=== PATIENT | female | born 1995 | race Caucasian/White ===

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

== ENCOUNTER 2017-08-09 13:59 | Emergency (ER) | payer OTHER ==
[~2017-08-09] VITALS: Ht 157.5 cm; Wt 46.9 kg
[2017-08-09 14:02] VITALS: TEMP 37; Ht 157.5 cm; Wt 46.9 kg
[2017-08-09] MEDS ORDERED: PHENAZOPYRIDINE HCL 200 MG TAB PO STA (14:07)
[2017-08-09] MEDS ORDERED: KETOROLAC TROMETHAMINE 30 MG/ML VIAL IV STA (14:07)
[2017-08-09] MEDS ORDERED: LACTATED RINGER'S 1000ML 1,000 ML IV STA (14:07)
[2017-08-09] MEDS ORDERED: ACETAMINOPHEN 500 MG TAB PO STA (14:07)
[2017-08-09] MEDS ORDERED: ONDANSETRON 4MG OD TAB PO ONE (14:15)
--- NOTE | 2017-08-09 14:30 | EMERGENCY ROOM VISIT NOTE ---
History Report prepared by Johnathon: Galdino Bruno Under the Supervision of: Dr. Moises Nickerson M.D. First contact with patient: 14:04 Chief Complaint: URINARY SYMPTOMS Stated Complaint: KIDNEY INFECTION History of Present Illness The patient is a 22 year old female who presents to the Emergency Room with complaints of persistent urinary symptoms beginning about a week ago. She has a history of frequent UTIs. Her urinary symptoms include dark colored urine, pain with urination, right flank pain, and difficulty with urination. The patient also complains of chills, and fatigue. She has been taking Azo for urinary symptoms, but has seen minimal relief. She denies any fevers or vomiting. The patient denies chance of . She has a history of a prior kidney stone, but does not feel that her symptoms feel particularly similar. She notes that she and her children were all sick two weeks ago. The patient states that she feels congested from this, but denies significant shortness of breath. She states that she has not been drinking much recently and feels dehydrated. Source of History: patient Onset: About a week ago Quality: other (urinary symptoms) Timing: other (persistent) Associated Symptoms: + chills, No fevers, No SOB, No vomiting Review of Systems See HPI for pertinent positives & negatives. A total of 10 systems reviewed and were otherwise negative. 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 Surgical Problems: (1) History of adenoidectomy Family History Diabetes mellitus Gallbladder disease Heart disease Hypertension Social History Smoking Status: Current Every Day Smoker Alcohol Use: none Drug Use: none Marital Status: single Housing Status: lives with family Occupation Status: employed Current/Historical Medications Scheduled Cefdinir (Omnicef), 300 MG PO Q12H Scheduled PRN Phenazopyridine HCl (Pyridium), 200 MG PO TID PRN for Frequency/Burning w/ Urination Allergies Coded Allergies: No Known Allergies (Unverified , 08/09/17) Physical Exam Vital Signs Date Time Temp Pulse Resp B/P (MAP) Pulse Ox O2 Delivery O2 Flow Rate FiO2 08/09/17 16:29 92 14 105/57 99 08/09/17 16:14 87 17 99 08/09/17 16:00 94 17 111/61 99 Room Air 08/09/17 15:59 87 15 111/61 98 08/09/17 14:59 111 23 08/09/17 14:44 112 17 08/09/17 14:29 126 15 08/09/17 14:21 124 08/09/17 14:02 37.0 145 20 120/74 99 Room Air Physical Exam GENERAL: Patient is in no acute distress. HEENT: No acute trauma, normocephalic atraumatic, mucous membranes moist, no nasal congestion, no scleral icterus. NECK: No stridor, no adenopathy, no meningismus, trachea is midline. LUNGS: Clear to auscultation bilaterally, no wheeze, no rhonchi, breath sounds equal. HEART: Tachycardic with a regular rhythm. No murmurs. ABDOMEN: Soft, nontender, bowel sounds positive, no hernias, no peritonitis. BACK: Right flank discomfort with percussion. EXTREMITIES: No cyanosis or edema, full range of motion of all the joints without pain or difficulty, no signs for acute trauma. NEUROLOGIC: Oriented x 3, no acute motor or sensory deficits, no focal weakness. SKIN: No rash, no jaundice, no diaphoresis. Medical Decision & Procedures ER Provider Diagnostic Interpretation: Radiology results as stated below per my review and radiologist interpretation: (RENAL)RETROPERITON COMP FINDINGS: Right kidney: Normal echogenicity. Right kidney measures 10.4 cm. No hydronephrosis. No convincing evidence of calculus or mass. Normal perfusion. Left kidney: Normal echogenicity. Left kidney measures 10.9 cm. No hydronephrosis. No convincing evidence of calculus or mass. Normal perfusion. Bladder: Debris within the bladder with a mobile sludge ball. Bilateral ureteral jets present. Other: None. IMPRESSION: 1. No obstruction. 2. Debris within the bladder with mobile sludge ball. This can be seen in the setting of infection or hemorrhage. Correlate with urinalysis. Electronically signed by: Haider Mariee M.D. 08/09/2017 3:47 PM KUB FINDINGS: Moderate stool burden throughout the colon. No bowel obstruction. No gross evidence of free intraperitoneal gas. Allowing for the presence of gas and stool, no evidence of calcifications projecting over the renal shadows. Suggestion of a punctate calcification over the right hemipelvis. A distal right ureteral calculus is difficult to exclude, although this could represent a phlebolith. Mild dextroscoliotic curvature of the lumbar spine. IMPRESSION: 1. Punctate calcification in the right hemipelvis. A distal right ureteral calculus is difficult to exclude, although this could represent a phlebolith possible. Electronically signed by: Haider Mariee M.D. 08/09/2017 3:28 PM CHEST ONE VIEW PORTABLE FINDINGS: Cardiomediastinal silhouette normal. Lungs and pleural spaces clear. Osseous structures normal. Upper abdomen normal. IMPRESSION: 1. No acute cardiopulmonary disease. Electronically signed by: Haider Mariee M.D. 08/09/2017 2:50 PM Laboratory Results 08/09/17 14:31 Red Blood Count 4.72, Mean Corpuscular Volume 89.2, Mean Corpuscular Hemoglobin 30.7, Mean Corpuscular Hemoglobin Concent 34.4, Mean Platelet Volume 9.6, Neutrophils (%) (Auto) 77.6, Lymphocytes (%) (Auto) 14.9, Monocytes (%) (Auto) 7.0, Eosinophils (%) (Auto) 0.3, Basophils (%) (Auto) 0.1, Neutrophils # (Auto) 8.01, Lymphocytes # (Auto) 1.54, Monocytes # (Auto) 0.72, Eosinophils # (Auto) 0.03, Basophils # (Auto) 0.01 08/09/17 14:31 Test 08/09/17 14:17 08/09/17 14:31 Urine Color ORANGE Urine Appearance TURBID (CLEAR) Urine pH 8.0 (4.5-7.5) Urine Specific [place] 1.018 (1.000-1.030) Urine Protein 2+ (NEG) Urine Glucose (UA) NEG (NEG) Urine Ketones NEG (NEG) Urine Occult Blood 3+ (NEG) Urine Nitrite POS (NEG) Urine Bilirubin NEG (NEG) Urine Urobilinogen NEG (NEG) Urine Leukocyte Esterase LARGE (NEG) Urine WBC (Auto) >30 /hpf (0-5) Urine RBC (Auto) >30 /hpf (0-4) Urine Hyaline Casts (Auto) 0 /lpf (0-5) Urine Epithelial Cells (Auto) >30 /lpf (0-5) Urine Bacteria (Auto) 3+ (NEG) Urine Pathogenic Casts /lpf (0) White Blood Count 10.32 K/uL (4.8-10.8) Red Blood Count 4.72 M/uL (4.2-5.4) Hemoglobin 14.5 g/dL (12.0-16.0) Hematocrit 42.1 % (37-47) Mean Corpuscular Volume 89.2 fL (80-100) Mean Corpuscular Hemoglobin 30.7 pg (25-34) Mean Corpuscular Hemoglobin Concent 34.4 g/dl (32-36) Platelet Count 227 K/uL (130-400) Mean Platelet Volume 9.6 fL (7.4-10.4) Neutrophils (%) (Auto) 77.6 % Lymphocytes (%) (Auto) 14.9 % Monocytes (%) (Auto) 7.0 % Eosinophils (%) (Auto) 0.3 % Basophils (%) (Auto) 0.1 % Neutrophils # (Auto) 8.01 K/uL (1.4-6.5) Lymphocytes # (Auto) 1.54 K/uL (1.2-3.4) Monocytes # (Auto) 0.72 K/uL (0.11-0.59) Eosinophils # (Auto) 0.03 K/uL (0-0.5) Basophils # (Auto) 0.01 K/uL (0-0.2) RDW Standard Deviation 43.4 fL (36.4-46.3) RDW Coefficient of Variation 13.2 % (11.5-14.5) Immature Granulocyte % (Auto) 0.1 % Immature Granulocyte # (Auto) 0.01 K/uL (0.00-0.02) Anion Gap 9.0 mmol/L (3-11) Est Creatinine Clear Calc Drug Dose 107.2 ml/min Estimated GFR () > 150.0 Estimated GFR (Non- 129.8 BUN/Creatinine Ratio 12.5 (10-20) Lactic Acid Level 1.5 mmol/L (0.4-2.0) Calcium Level 9.0 mg/dl (8.5-10.1) Total Bilirubin 0.2 mg/dl (0.2-1) Aspartate Amino Transf (AST/SGOT) 11 U/L (15-37) Alanine Aminotransferase (ALT/SGPT) 19 U/L (12-78) Alkaline Phosphatase 85 U/L (45-117) Total Protein 7.1 gm/dl (6.4-8.2) Albumin 3.4 gm/dl (3.4-5.0) Globulin 3.7 gm/dl (2.5-4.0) Albumin/Globulin Ratio 0.9 (0.9-2) Lipase 213 U/L (73-393) Human Chorionic Gonadotropin, Qual NEG (NEG) Laboratory results reviewed by me. Medications Administered Medications (Trade) Dose Ordered Sig/Marzena Route Start Time Stop Time Status Last Admin Dose Admin Ondansetron HCl (Zofran Odt) 4 mg ONE ONCE PO 08/09/17 14:15 08/09/17 14:16 DC 08/09/17 14:40 4 MG Ketorolac Tromethamine (Toradol Inj) 30 mg NOW STAT IV 08/09/17 14:07 08/09/17 14:12 DC 08/09/17 14:42 30 MG Acetaminophen (Tylenol Tab) 1,000 mg NOW STAT PO 08/09/17 14:07 08/09/17 14:12 DC 08/09/17 14:41 1,000 MG Lactated Ringer's 1,000 ml @ 999 mls/hr Q1H1M STAT IV 08/09/17 14:07 08/09/17 15:07 DC 08/09/17 14:41 999 MLS/HR Phenazopyridine HCl (Pyridium Tab) 200 mg NOW STAT PO 08/09/17 14:07 08/09/17 14:12 DC 08/09/17 14:41 200 MG Ceftriaxone Sodium (Rocephin Inj) 1 gm NOW STAT IV 08/09/17 15:16 08/09/17 15:17 DC 08/09/17 16:00 1 GM ECG Indication: other (history of WPW) Rate (beats per minute): 105 Rhythm: sinus tachycardia Findings: no ectopy, other (WPW. No obvious ischemia. ) ED Course 1405: The patient was evaluated in room B12B. A complete history and physical exam was performed. 1407: Ordered Pyridium Tab 200 mg PO, Lactated Ringer's 1000 mL @ 999 mL/hr IV, Tylenol Tab 1000 mg PO, Toradol Inj 30 mg IV. 1415: Ordered Zofran Odt 4 mg PO. 1516: Ordered Rocephin Inj 1 gm IV. 1602: Reevaluated the patient. Discussed results and discharge instructions: she verbalized understanding and agreement. The patient is ready for discharge. Medical Decision The patient is a 22 year old female who presents to the ED with complaints of urinary symptoms. Differential diagnoses considered include renal colic, dehydration, electrolyte imbalance, renal failure, UTI, pyelonephritis, , sepsis, and SVT. There is no leukocytosis or concerning anemia. No significant electrolyte abnormality, kidney failure or hepatitis. There is no pancreatitis. testing is negative. Urinalysis does suggest infection, urine culture is pending. Lactic acid level is not elevated making sepsis less likely. KUB shows a possible distal right ureteral stone versus a phlebolith. Chest does not show pneumonia or CHF. Renal ultrasound shows no hydronephrosis, bilateral ureteral jets were seen. EKG shows a sinus tachycardia with WPW. The patient was given IV lactated Ringer's, she received IV Zofran, IV Toradol, IV ceftriaxone, oral Pyridium and oral Tylenol. Her heart rate is improved, she is resting comfortably. The patient has acute pyelonephritis. She is being discharged on Omnicef, over- the-counter pain medication, hydration and rest. If worsening or not improving , she should return. Medication Reconcilliation Current Medication List: was personally reviewed by me Blood Pressure Screening Patient's blood pressure: Normal blood pressure Blood pressure disposition: Did not require urgent referral Impression Primary Impression: Pyelonephritis Additional Impression: WPW (Fneig-Fikgwwmgy-Hfakm syndrome) Scribe Attestation The scribe's documentation has been prepared under my direction and personally reviewed by me in its entirety. I confirm that the note above accurately reflects all work, treatment, procedures, and medical decision making performed by me. Departure Information Dispostion Home / Self-Care Prescriptions Phenazopyridine HCl (Pyridium) 200 Mg Tab 200 MG PO TID Y for Frequency/Burning w/Urination, #6 TAB Prov: Moises Nickerson M.D. 08/09/17 Cefdinir (OMNICEF) 300 Mg Cap 300 MG PO Q12H for 10 Days, #20 CAP Prov: Moises Nickerson M.D. 08/09/17 Referrals No Doctor, Assigned (PCP) Forms HOME CARE DOCUMENTATION FORM, IMPORTANT VISIT INFORMATION Patient Instructions My [facility] Additional Instructions fluids rest motrin/tylenol for pain omnicef 2x per day for 10 days pyridium 3x per day for the burning to urinate return for worsening symptoms, if not improving or if start vomiting lab testing was all ok today Problem Qualifiers
--- NOTE | 2017-08-09 14:51 | DIAGNOSTIC IMAGING REPORT ---
CHEST ONE VIEW PORTABLE CLINICAL HISTORY: 22 years-old Female presenting with cough. TECHNIQUE: Portable upright AP view of the chest was obtained. COMPARISON: 01/23/2016. FINDINGS: Cardiomediastinal silhouette normal. Lungs and pleural spaces clear. Osseous structures normal. Upper abdomen normal. IMPRESSION: 1. No acute cardiopulmonary disease. Electronically signed by: Haider Mariee M.D. 08/09/2017 2:50 PM Dictated Date/Time: 08/09/2017 2:49 PM
[2017-08-09 14:54] LABS: BASO % 0.1 %; BASO ABS # 0.01 K/uL (0-0.2); COMPLETE YES; EOS % 0.3 %; HEMATOCRIT 42.1 % (37-47); IG% 0.1 %; LYMPH % 14.9 %; LYMPH ABS # 1.54 K/uL (1.2-3.4); MEAN CELL VOLUME 89.2 fL (80-100); MEAN CORPUSCULAR HEMOGLOBIN 30.7 pg (25-34); MEAN CORPUSCULAR HGB CONC 34.4 g/dl (32-36); MEAN PLATELET VOLUME 9.6 fL (7.4-10.4); NEUT % 77.6 %; PLATELET COUNT 227 K/uL (130-400); RED BLOOD COUNT 4.72 M/uL (4.2-5.4); WHITE BLOOD COUNT 10.32 K/uL (4.8-10.8)
[2017-08-09 15:11] LABS: ALT/SGPT 19 U/L (12-78); AST/SGOT 11 U/L (15-37); BLOOD UREA NITROGEN 8 mg/dl (7-18); BUN/CREATININE RATIO 12.5 (10-20); CARBON DIOXIDE 26 mmol/L (21-32); CHLORIDE 105 mmol/L (98-107); CREATININE 0.62 mg/dl (0.60-1.20); GLUCOSE 82 mg/dl (70-99); POTASSIUM 3.8 mmol/L (3.5-5.1); SODIUM 140 mmol/L (136-145)
[2017-08-09 15:13] LABS: ALB/GLOB RATIO 0.9 (0.9-2); ALKALINE PHOSPHATASE 85 U/L (45-117)
[2017-08-09] MEDS ORDERED: CEFTRIAXONE SOD INJ 1 GM ADDVIAL IV STA (15:16)
[2017-08-09 15:18] LABS: PREG INTERNAL NEGATIVE QC NEG CLEAR BACKGROUND; PREG INTERNAL POSITIVE QC POS CONTROL LINE
--- NOTE | 2017-08-09 15:29 | DIAGNOSTIC IMAGING REPORT ---
KUB CLINICAL HISTORY: 22 years-old Female presenting with poss stone, right flank pain. TECHNIQUE: Single supine view of the abdomen was obtained. COMPARISON: None. FINDINGS: Moderate stool burden throughout the colon. No bowel obstruction. No gross evidence of free intraperitoneal gas. Allowing for the presence of gas and stool, no evidence of calcifications projecting over the renal shadows. Suggestion of a punctate calcification over the right hemipelvis. A distal right ureteral calculus is difficult to exclude, although this could represent a phlebolith. Mild dextroscoliotic curvature of the lumbar spine. IMPRESSION: 1. Punctate calcification in the right hemipelvis. A distal right ureteral calculus is difficult to exclude, although this could represent a phlebolith possible. Electronically signed by: Haider Mariee M.D. 08/09/2017 3:28 PM Dictated Date/Time: 08/09/2017 3:26 PM
[2017-08-09 15:35] LABS: URINE APPEARANCE TURBID (CLEAR); URINE BILIRUBIN NEG (NEG); URINE COLOR ORANGE; URINE EPITHELIAL CELL AUTO >30 /lpf (0-5); URINE NITRITE POS (NEG); URINE SPECIFIC GRAVITY 1.018 (1.000-1.030); UROBILINOGEN NEG (NEG); ZZUR CULT IF INDIC CLEAN CATCH YES
[2017-08-09 15:46] LABS: MANUAL MICROSCOPIC REQUIRED? NO; REVIEW REQ? YES; SULFASALICYLIC ACID POS (NEG)
--- NOTE | 2017-08-09 15:48 | DIAGNOSTIC IMAGING REPORT ---
(RENAL)RETROPERITON COMP CLINICAL HISTORY: 22 years-old Female presenting with right flank pain, poss hydro. TECHNIQUE: Real-time grayscale and limited color Doppler ultrasound imaging of the kidneys and bladder was performed. COMPARISON: None. FINDINGS: Right kidney: Normal echogenicity. Right kidney measures 10.4 cm. No hydronephrosis. No convincing evidence of calculus or mass. Normal perfusion. Left kidney: Normal echogenicity. Left kidney measures 10.9 cm. No hydronephrosis. No convincing evidence of calculus or mass. Normal perfusion. Bladder: Debris within the bladder with a mobile sludge ball. Bilateral ureteral jets present. Other: None. IMPRESSION: 1. No obstruction. 2. Debris within the bladder with mobile sludge ball. This can be seen in the setting of infection or hemorrhage. Correlate with urinalysis. Electronically signed by: Haider Mariee M.D. 08/09/2017 3:47 PM Dictated Date/Time: 08/09/2017 3:46 PM
[2017-08-09] MEDS ORDERED: PHEN-876 PO (16:08)
[2017-08-09] MEDS ORDERED: CEFD300C2 PO (16:08)
[2017-08-09 16:29] VITALS: BP 105/57; PULSE 92; O2SAT 99
== END 2017-08-09 17:02 | disposition home or self-care (01) ==
LOC: C.EDB 14:00
DX: N12 Tubulo-interstitial nephritis, not specified as acute or chronic (principal); I45.6 Pre-excitation syndrome; F32.9 Major depressive disorder, single episode, unspecified; Z87.440 Personal history of urinary (tract) infections; Z83.3 Family history of diabetes mellitus; Z83.79 Family history of other diseases of the digestive system; Z82.49 Family history of ischemic heart disease and other diseases of the circulatory system; F17.210 Nicotine dependence, cigarettes, uncomplicated

== ENCOUNTER 2017-08-20 15:00 | Emergency (ER) | payer OTHER ==
[~2017-08-20] VITALS: Ht 154.9 cm; Wt 49.3 kg
[~2017-08-20 15:00] MED LIST changes: +CEFD300C2 PO; +PHEN-876 PO; -PRENTAB26 PO
[2017-08-20 15:07] VITALS: TEMP 36.6; Ht 154.9 cm; Wt 49.3 kg
[2017-08-20 16:44] LABS: BASO % 0.2 %; BASO ABS # 0.02 K/uL (0-0.2); COMPLETE YES; EOS % 0.5 %; HEMATOCRIT 39.7 % (37-47); IG% 0.3 %; LYMPH % 14.5 %; LYMPH ABS # 1.69 K/uL (1.2-3.4); MEAN CELL VOLUME 93.2 fL (80-100); MEAN CORPUSCULAR HEMOGLOBIN 30.5 pg (25-34); MEAN CORPUSCULAR HGB CONC 32.7 g/dl (32-36); MEAN PLATELET VOLUME 9.4 fL (7.4-10.4); MONO % 4.9 %; NEUT % 79.6 %; PLATELET COUNT 227 K/uL (130-400); RED BLOOD COUNT 4.26 M/uL (4.2-5.4); WHITE BLOOD COUNT 11.63 K/uL (4.8-10.8)
[2017-08-20 17:09] LABS: BUN/CREATININE RATIO 17.7 (10-20); CALCIUM 8.6 mg/dl (8.5-10.1); CREATININE 0.7 mg/dl (0.60-1.20); POTASSIUM 3.5 mmol/L (3.5-5.1)
[2017-08-20 17:19] LABS: URINE APPEARANCE TURBID (CLEAR); URINE BILIRUBIN NEG (NEG); URINE COLOR DK YELLOW; URINE NITRITE POS (NEG); URINE SPECIFIC GRAVITY 1.017 (1.000-1.030); UROBILINOGEN NEG (NEG)
[2017-08-20 17:28] LABS: MANUAL MICROSCOPIC REQUIRED? NO; REVIEW REQ? YES; SULFASALICYLIC ACID POS (NEG)
[2017-08-20 18:40] VITALS: BP 132/72; PULSE 85; O2SAT 99
[2017-08-20] MEDS ORDERED: CIPROFLOXACIN 500 MG TAB PO STA (18:44)
[2017-08-20] MEDS ORDERED: CIPR-255 PO (18:47)
[2017-08-20] MEDS ORDERED: CIPROFLOXACIN 500MG HOME PACK PO ONE (19:00)
--- NOTE | 2017-08-20 22:37 | EMERGENCY ROOM VISIT NOTE ---
History Report prepared by [place]: Karoline Sheppard Under the Supervision of: Dr. Anthony Zelaya M.D. First contact with patient: 16:04 Chief Complaint: URINARY SYMPTOMS Stated Complaint: KIDNEY INFECTION Nursing Triage Summary: having trouble urinating. dx here about 12 days ago with a kidney infection. I was unable to have my perscription filled because it was to expensive. having a lot of pain in my lower back History of Present Illness The patient is a 22 year old female who presents to the Emergency Room with complaints of persistent urinary symptoms for the past several weeks. She admits to dysuria and increased urinary frequency. She also complains of right sided back pain. She does not believe she's been febrile but admits she has not checked. She has not vomited. She denies any chance of . The patient was seen here for urinary symptoms 12 days ago and diagnosed with a kidney infection. She states she was prescribed medication, but has been unable to fill the prescription as her insurance would not cover it. She reports she has no medication allergies. She stated she tried to call and get a new prescription but nobody responded. She states she came today because she was finally able to get a ride. Source of History: patient Onset: several weeks Position: other (urinary system) Quality: other (burning and frequency) Timing: other (persistent) Associated Symptoms: + back pain (right sided back pain), No fevers, No vomiting Review of Systems See HPI for pertinent positives & negatives. A total of 10 systems reviewed and were otherwise negative. 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 Surgical Problems: (1) History of adenoidectomy Family History Diabetes mellitus Gallbladder disease Heart disease Hypertension Social History Smoking Status: Current Every Day Smoker Alcohol Use: none Drug Use: none Marital Status: single Housing Status: lives with family Occupation Status: employed Current/Historical Medications Scheduled Ciprofloxacin Hcl (Cipro), 500 MG PO BID Allergies Coded Allergies: No Known Allergies (Unverified , 08/20/17) Physical Exam Vital Signs Date Time Temp Pulse Resp B/P (MAP) Pulse Ox O2 Delivery O2 Flow Rate FiO2 08/20/17 18:40 85 18 132/72 99 Room Air 08/20/17 17:00 98 18 125/76 99 Room Air 08/20/17 15:07 36.6 117 18 130/65 99 Physical Exam Constitutional: Vital signs reviewed. Eyes: Pupils are equal round reactive to light. Conjunctiva are noninjected. ENT: Pharynx is clear without erythema or exudate. Mucous membranes are moist. Neck supple without meningeal signs. Respiratory: Clear to auscultation bilaterally. Breath sounds are equal bilaterally. Cardiovascular: Regular rate and rhythm. No rubs or gallops. GI: Soft, nondistended and nontender. Bowel sounds are present. Musculoskeletal: No peripheral edema. No CVA tenderness. Integumentary: No cyanosis. Neurological: The patient is awake and alert. No focal deficits. Psychiatric: Normal affect. Medical Decision & Procedures Laboratory Results 08/20/17 16:19 Red Blood Count 4.26, Mean Corpuscular Volume 93.2, Mean Corpuscular Hemoglobin 30.5, Mean Corpuscular Hemoglobin Concent 32.7, Mean Platelet Volume 9.4, Neutrophils (%) (Auto) 79.6, Lymphocytes (%) (Auto) 14.5, Monocytes (%) (Auto) 4.9, Eosinophils (%) (Auto) 0.5, Basophils (%) (Auto) 0.2, Neutrophils # (Auto) 9.26, Lymphocytes # (Auto) 1.69, Monocytes # (Auto) 0.57, Eosinophils # (Auto) 0.06, Basophils # (Auto) 0.02 08/20/17 16:19 Test 08/20/17 16:19 08/20/17 17:04 White Blood Count 11.63 K/uL (4.8-10.8) Red Blood Count 4.26 M/uL (4.2-5.4) Hemoglobin 13.0 g/dL (12.0-16.0) Hematocrit 39.7 % (37-47) Mean Corpuscular Volume 93.2 fL (80-100) Mean Corpuscular Hemoglobin 30.5 pg (25-34) Mean Corpuscular Hemoglobin Concent 32.7 g/dl (32-36) Platelet Count 227 K/uL (130-400) Mean Platelet Volume 9.4 fL (7.4-10.4) Neutrophils (%) (Auto) 79.6 % Lymphocytes (%) (Auto) 14.5 % Monocytes (%) (Auto) 4.9 % Eosinophils (%) (Auto) 0.5 % Basophils (%) (Auto) 0.2 % Neutrophils # (Auto) 9.26 K/uL (1.4-6.5) Lymphocytes # (Auto) 1.69 K/uL (1.2-3.4) Monocytes # (Auto) 0.57 K/uL (0.11-0.59) Eosinophils # (Auto) 0.06 K/uL (0-0.5) Basophils # (Auto) 0.02 K/uL (0-0.2) RDW Standard Deviation 48.3 fL (36.4-46.3) RDW Coefficient of Variation 14.2 % (11.5-14.5) Immature Granulocyte % (Auto) 0.3 % Immature Granulocyte # (Auto) 0.03 K/uL (0.00-0.02) Urine Test NEG (NEG) Anion Gap 9.0 mmol/L (3-11) Est Creatinine Clear Calc Drug Dose 96.7 ml/min Estimated GFR () 144.6 Estimated GFR (Non- 124.7 BUN/Creatinine Ratio 17.7 (10-20) Calcium Level 8.6 mg/dl (8.5-10.1) Urine Color DK YELLOW Urine Appearance TURBID (CLEAR) Urine pH 8.0 (4.5-7.5) Urine Specific [place] 1.017 (1.000-1.030) Urine Protein 1+ (NEG) Urine Glucose (UA) NEG (NEG) Urine Ketones NEG (NEG) Urine Occult Blood 1+ (NEG) Urine Nitrite POS (NEG) Urine Bilirubin NEG (NEG) Urine Urobilinogen NEG (NEG) Urine Leukocyte Esterase LARGE (NEG) Urine WBC (Auto) >30 /hpf (0-5) Urine RBC (Auto) 10-30 /hpf (0-4) Urine Hyaline Casts (Auto) 1-5 /lpf (0-5) Urine Epithelial Cells (Auto) 5-10 /lpf (0-5) Urine Bacteria (Auto) 2+ (NEG) Laboratory results as reviewed by me. Medications Administered Medications (Trade) Dose Ordered Sig/Marzena Route Start Time Stop Time Status Last Admin Dose Admin Ciprofloxacin (Cipro Tab) 500 mg NOW STAT PO 08/20/17 18:44 08/20/17 18:45 DC 08/20/17 18:44 500 MG Ciprofloxacin (Cipro 500MG Home Pack) 1 homepack UD ONCE PO 08/20/17 19:00 08/20/17 19:01 DC 08/20/17 19:00 1 HOMEPACK ED Course 1606: The patient was evaluated in room B10. A complete history and physical exam was performed. 1843: Cipro 500 mg PO. 1844: I reevaluated the patient. She is feeling well. I discussed her test results with her as well as her discharge instructions and she verbalized complete understanding and agreement. 1899: Cipro 500 mg 1 homepack PO. Medical Decision This is a 22-year-old female who presents with back pain and urinary symptoms. Differential diagnosis includes UTI, pyelonephritis, acute kidney injury, SIRS. I did perform a limited focused review of portions of the patient's old chart on the electronic medical record. The patient was seen here for urinary symptoms on July 09 and diagnosed with pyelonephritis. She was treated with IV Ceftriaxone and discharged with Omnicef. Her urine culture grew out e- coli that was sensitive to everything but Bactrim. I did evaluate the patient as noted above. The patient developed urinary symptoms and back pain several weeks ago. She was seen here and diagnosed with pyelonephritis and discharged with antibiotics but she never filled the prescription. She states she is here today because she was finally able to get a ride. She does not appear to have any systemic symptoms such as fever or vomiting. She does not appear septic. She has very minimal to no CVA tenderness on the right side. She verbally responds that it is tender on that side but does not react physically. IV access was established. I did order and personally review the patient's urinalysis as described above. Urine culture was sent. I did treat the patient with Cipro. Urine test was negative. I did order and review the patient's blood work as noted in the electronic medical record. Her white blood cell count is slightly elevated. Renal function is normal. I did discuss the test results with the patient. We did confirm that generic Cipro would be affordable for her and covered by her insurance. She was discharged with a prescription for Cipro. She was advised to follow up with her doctor. Medication Reconcilliation Current Medication List: was personally reviewed by me Blood Pressure Screening Patient's blood pressure: Elevated blood pressure Blood pressure disposition: Referred to PCP Impression Primary Impression: Pyelonephritis Scribe Attestation The scribe's documentation has been prepared under my direct and personally reviewed by me in its entirety. I confirm that the note above accurately reflects all work, treatment, procedures, and medical decision making performed by me. Departure Information Dispostion Home / Self-Care Prescriptions Ciprofloxacin Hcl (CIPRO) 500 Mg Tab 500 MG PO BID, #14 TAB Prov: Anthony Zelaya M.D. 08/20/17 Referrals No Doctor, Assigned (PCP) Patient Instructions My [facility], Pyelonephritis Dc Additional Instructions You have been examined and treated today on an emergency basis only. This is not a substitute for, or an effort to provide, complete comprehensive medical care. It is impossible to recognize and treat all injuries or illnesses in a single emergency department visit. It is therefore important that you follow up closely with your physician. Call as soon as possible for an appointment. Return for worsening symptoms or if you develop fever, vomiting, or any other concerning symptoms.
== END 2017-08-20 19:29 | disposition home or self-care (01) ==
LOC: C.EDB 15:02
DX: N12 Tubulo-interstitial nephritis, not specified as acute or chronic (principal); F32.9 Major depressive disorder, single episode, unspecified; F17.200 Nicotine dependence, unspecified, uncomplicated; Z87.440 Personal history of urinary (tract) infections; Z91.81 History of falling; Z98.890 Other specified postprocedural states

== ENCOUNTER 2017-08-20 20:25 | Emergency (ER) | payer OTHER ==
[~2017-08-20] VITALS: Ht 154.9 cm; Wt 49.6 kg
[~2017-08-20 20:25] MED LIST changes: +CIPR-255 PO
[2017-08-20 20:27] VITALS: TEMP 36.8; Ht 154.9 cm; Wt 49.6 kg
--- NOTE | 2017-08-20 20:54 | EMERGENCY ROOM VISIT NOTE ---
History Report prepared by Johnathon: John Tian Under the Supervision of: Dr. Demarco Diallo M.D. First contact with patient: 20:39 Chief Complaint: MENTAL HEALTH EVALUATION Stated Complaint: MENTAL HEALTH History of Present Illness The patient is a 22 year old female with a history of depression who presents to the Emergency Room with a persistent concern for a need for a mental health evaluation today. Per the psych correctional counselor/case manager, the patient was just here a couple hours ago and saw Dr. Zelaya for a kidney infection. The patient recently just lost her children by CYS, and the patient states that that has been a major recent stressor for her. The patient notes that she was at her mother's house after being discharged from here, and asked for a ride to her home because she needed to pay rent to avoid eviction. The patient's mother said no, so the patient said that she would walk on the street to get home, and that is what she did, but did stop at the [employer]. The patient says that she called her [place] the [place], but the mother's phone was off. The patient states that she then called her step-father, who told the patient that he would pick her up. However, the patient says that while waiting outside the mart, the machine silk screen printer showed up because her mother called them noting that she had concerns about the patient's safety. The patient states that she does not know why she is here, and denies any suicidal or homicidal ideations. She notes that she has not taken her depression medications in 4 years because she was treated, but she says that she deals with depressed thoughts everyday. She adds that she smokes marijuana daily, and recreationally uses other drugs but no IV drugs. The patient denies any decrease in appetite or weight loss. She also denies any leg pain, or any extra Tylenol or Advil use. She adds that she cut herself when she was younger, but has not cut herself for a while. She notes that she has back pain from her kidney infection. Source of History: patient, other (psych correctional counselor/case manager) Onset: Today Position: other (global - concern for patient's safety) Quality: other (mother called police) Timing: other (persistent need) Associated Symptoms: + back pain Note: Associated symptoms: Denies leg pain, or suicidal or homicidal ideations. Review of Systems See HPI for pertinent positives & negatives. A total of 10 systems reviewed and were otherwise negative. Past Medical & Surgical Medical Problems: (1) Abnormal TSH (2) ACUTE PHARYNGITIS (3) Chronic fatigue (4) Dehydration (5) Dental caries (6) DEPRESSIVE DISORDER NEC (7) Fall (8) Nausea vomiting and diarrhea (9) at early stage (10) PROM (premature rupture of membranes) (11) Spontaneous onset of labor (12) Syncope (13) UTI (lower urinary tract infection) (14) Vomiting complicating (15) Vomiting complicating (16) Vomiting complicating (17) Qxsbo-Scuvbgumy-Fwcuh (WPW) syndrome Surgical Problems: (1) History of adenoidectomy Old medical records were reviewed. Nurse's notes were reviewed and I agree with. Family History Diabetes mellitus Gallbladder disease Heart disease Hypertension Social History Smoking Status: Current Every Day Smoker Alcohol Use: none Drug Use: none Marital Status: single Housing Status: lives with family Occupation Status: employed Current/Historical Medications Scheduled Ciprofloxacin Hcl (Cipro), 500 MG PO BID Allergies Coded Allergies: No Known Allergies (Unverified , 08/20/17) Physical Exam Vital Signs Date Time Temp Pulse Resp B/P (MAP) Pulse Ox O2 Delivery O2 Flow Rate FiO2 08/20/17 22:51 99 14 107/64 96 Room Air 08/20/17 20:27 36.8 117 20 128/85 99 Room Air Physical Exam General: Non-ill appearing young female in no acute distress. HEENT: Normal cephalic atraumatic. Pupils are equal round and reactive to light. Extraocular movements are intact. Oropharynx is pink with moist mucous membranes. No swelling of the mouth lips or tongue. Neck: Supple with a midline trachea. No meningeal signs or stiffness, no JVD or bruits. No Stridor. Chest: Clear to auscultation bilaterally. No wheezes or rhonchi. No increased work of breathing. Heart: regular rate and rhythm. Abdomen: Soft nontender, nondistended without rebound guarding or rigidity. Extremities: No cyanosis clubbing or edema. No calf tenderness or assymetry Spine/Back. Non tender to palpation. No CVA tenderness Skin: Good turgor without rashes. Neurologic exam: Cranial nerves two through 12 are intact. Motor and sensation are intact and symmetrical throughout. Psych: Denies suicidal or homicidal ideation. Medical Decision & Procedures Laboratory Results Test 08/20/17 17:04 08/20/17 21:08 Urine Opiates Screen NEG (NEG) Urine Methadone, Qualitative NEG (NEG) Urine Barbiturates NEG (NEG) Urine Phencyclidine (PCP) Level NEG (NEG) Ur Amphetamine/Methamphetamine NEG (NEG) MDMA (Ecstasy) Screen NEG (NEG) Urine Benzodiazepines Screen NEG (NEG) Urine Cocaine Metabolite NEG (NEG) Urine Marijuana (THC) POS (NEG) Ethyl Alcohol mg/dL < 3.0 mg/dl (0-3) Laboratory studies as stated above per my review. Medications Administered Medications (Trade) Dose Ordered Sig/Marzena Route Start Time Stop Time Status Last Admin Dose Admin Nicotine (Nicoderm Cq 14MG Patch) 1 patch ONE STAT TD 08/20/17 23:18 08/20/17 23:20 DC 08/20/17 23:28 1 PATCH Nicotine Polacrilex (Nicorette 2MG Gum) 1 piece ONE STAT MT 08/20/17 23:18 08/20/17 23:20 DC 08/20/17 23:27 1 PIECE Acetaminophen (Tylenol Tab) 650 mg NOW STAT PO 08/21/17 00:44 08/21/17 00:45 DC 08/21/17 00:50 650 MG ED Course 2038: Past medical records reviewed. The patient was evaluated in room A5, and a complete history and physical examination were performed. 2300: I talked to Dung, the correctional counselor/case manager, who talked to the patient's mother, and we will have the mental health team come see the patient. 2318: Ordered Nicorette 2MG Gum 1 piece MT, Nicoderm Cq 14MG Patch 1 patch TD. 2323: The correctional counselor/case manager notified me that the patient is willing to stay, and they will try to get her into [facility]. 0032: I was notified by the correctional counselor/case manager that the patient is resting comfortably and was accepted to be evaluated for further treatment at [facility]. The patient expressed agreement with the plan. 0044: Ordered Tylenol Tab 650 mg PO. Medical Decision Differentials include depression, anxiety, electrolyte or metabolic abnormality. This patient comes in as described above. She was brought in by police after her mother was concerned about her wanting to hurt herself. 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 She was brought in by police. The patient is cooperative. She was anxious seen earlier today for after having urinary tract infection possible kidney infection. She has stable vital signs looks well. Her urine drug shows that was positive for marijuana. Alcohol is negative. I reviewed her labs from earlier they're unremarkable. The patient is willing to come in voluntarily for mental health help., Our case management team has arranged her to be placed in [facility]. She will be transferred there for further inpatient treatment and evaluation. Medication Reconcilliation Current Medication List: was personally reviewed by me Blood Pressure Screening Patient's blood pressure: Normal blood pressure Impression Primary Impression: Depression Additional Impression: Suicidal ideation Scribe Attestation The scribe's documentation has been prepared under my direction and personally reviewed by me in its entirety. I confirm that the note above accurately reflects all work, treatment, procedures, and medical decision making performed by me. Departure Information Dispostion Mental Health Acute Care (accepted to [facility]) Referrals No Doctor, Assigned (PCP) Patient Instructions My [facility] Problem Qualifiers Primary Impression: Depression Depression Type: major depressive disorder Active/Remission status: currently active Major depression episode severity: unspecified
[2017-08-20 22:33] LABS: BENZODIAZEPINE, URINE NEG (NEG); COCAINE,URINE NEG (NEG); PHENCYCLIDINE, URINE NEG (NEG)
[2017-08-20] MEDS ORDERED: NICOTINE POLACRILEX 2 MG GUM MT STA (23:18)
[2017-08-20] MEDS ORDERED: NICOTINE 14 MG/24 HR TDSY TD STA (23:18)
[2017-08-21] MEDS ORDERED: ACETAMINOPHEN 325 MG TAB PO STA (00:44)
[2017-08-21 01:42] VITALS: BP 125/69; PULSE 101; O2SAT 99
== END 2017-08-21 01:44 ==
LOC: C.EDB 20:26 → C.EDA 08-21 01:44
DX: F32.9 Major depressive disorder, single episode, unspecified (principal); R45.851 Suicidal ideations; F17.200 Nicotine dependence, unspecified, uncomplicated; Z87.440 Personal history of urinary (tract) infections; Z98.890 Other specified postprocedural states; Z83.3 Family history of diabetes mellitus; Z83.79 Family history of other diseases of the digestive system; Z82.49 Family history of ischemic heart disease and other diseases of the circulatory system

== ENCOUNTER 2018-01-20 19:17 | Inpatient (IN) | payer OTHER ==
[~2018-01-20] VITALS: Ht 157.5 cm; Wt 60.4 kg
[~2018-01-20 19:17] MED LIST changes: -CEFD300C2 PO; -PHEN-876 PO
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
[2018-01-20] MEDS ORDERED: LORAZEPAM 1 MG TAB SL STA (19:48)
[2018-01-20 20:05] LABS: BASO % 0.2 %; BASO ABS # 0.01 K/uL (0-0.2); EOS % 0.7 %; EOS ABS # 0.03 K/uL (0-0.5); HEMOGLOBIN 14.1 g/dL (12.0-16.0); LYMPH % 37.7 %; LYMPH ABS # 1.68 K/uL (1.2-3.4); MEAN CELL VOLUME 90.9 fL (80-100); MEAN CORPUSCULAR HEMOGLOBIN 30.5 pg (25-34); MEAN CORPUSCULAR HGB CONC 33.6 g/dl (32-36); MEAN PLATELET VOLUME 9.5 fL (7.4-10.4); MONO ABS # 0.31 K/uL (0.11-0.59); NEUT % 54.4 %; NEUT ABS # 2.43 K/uL (1.4-6.5); PLATELET COUNT 209 K/uL (130-400); RED CELL DISTRIBUTION WIDTH CV 12.3 % (11.5-14.5); RED CELL DISTRIBUTION WIDTH SD 40.9 fL (36.4-46.3); WHITE BLOOD COUNT 4.46 K/uL (4.8-10.8)
[2018-01-20 20:29] LABS: ALBUMIN 3.9 gm/dl (3.4-5.0); ALT/SGPT 19 U/L (12-78); AST/SGOT 16 U/L (15-37); BLOOD UREA NITROGEN 13 mg/dl (7-18); CALCIUM 8.8 mg/dl (8.5-10.1); CARBON DIOXIDE 27 mmol/L (21-32); CREATININE 0.88 mg/dl (0.60-1.20); GLUCOSE 81 mg/dl (70-99); POTASSIUM 3.6 mmol/L (3.5-5.1); SODIUM 139 mmol/L (136-145)
[2018-01-20] MEDS ORDERED: LEVO50TA6 PO (20:37)
[2018-01-20] MEDS ORDERED: DSY/150 PO (20:37)
[2018-01-20] MEDS ORDERED: LTH300C PO (20:37)
[2018-01-20] MEDS ORDERED: BUSP-8 PO (20:37)
[2018-01-20 20:40] LABS: ALKALINE PHOSPHATASE 72 U/L (45-117); TOTAL PROTEIN 7.4 gm/dl (6.4-8.2)
[2018-01-20] MEDS ORDERED: NITROFURANTOIN MONOHYDRATE 100 MG CAP PO STA (21:03)
[2018-01-21] MEDS ORDERED: TRAZODONE HCL 50 MG TAB PO ONE (03:15)
[2018-01-21] MEDS ORDERED: NURSING VERBAL MED ORDER ONE (03:15)
[2018-01-21 03:30] VITALS: O2SAT 98
[2018-01-21 04:37] VITALS: BP 104/56; PULSE 61; TEMP 36.6; Ht 157.5 cm; Wt 60.4 kg
[2018-01-21] MEDS ORDERED: hydrOXYzine HCL 25 MG TAB PO PRN ×2 (05:30)
[2018-01-21] MEDS ORDERED: ACETAMINOPHEN 325 MG TAB PO PRN (05:30)
[2018-01-21] MEDS ORDERED: BISMUTH SUBSALICYLATE PER ML OMNICELL CHARGE PO PRN (05:30)
[2018-01-21] MEDS ORDERED: SODIUM CHLORIDE 0.65% NA SOLN 45 ML (OCEAN) PRN (05:30)
[2018-01-21] MEDS ORDERED: MAGNESIUM HYDROXIDE SUSP 30 ML UDC PO PRN (05:30)
[2018-01-21] MEDS ORDERED: ALUMINUM/MAGNESIUM SUSP 30 ML UDC PO PRN (05:30)
--- NOTE | 2018-01-21 06:10 | EMERGENCY ROOM VISIT NOTE ---
ED Visit Note First contact with patient: 02:23 22 yr old female signed out to me by Dr Knox awaiting mental health evaluation. She was medically cleared and stable for Dr Knox. She has made suicidal threats and is here as 302 involuntary commitment. She was admitted to [address] [place] [address] and per their request I ordered her her nightly trazodone.
[2018-01-21 06:51] VITALS: BP_SYST 106; BP_SYST 118; BP_DIAS 67; BP_DIAS 69; PULSE 70; PULSE 71; TEMP 36.5
[2018-01-21] MEDS: LEVOTHYROXINE 50 MCG TAB PO SCH (10:26)
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
[2018-01-21] MEDS: LITHIUM CARBONATE 300 MG TAB PO SCH ×2 (10:27→21:30)
[2018-01-21] MEDS ORDERED: NICOTINE POLACRILEX 2 MG GUM MT PRN (12:15)
[2018-01-21] MEDS: NICOTINE 14 MG/24 HR TDSY TD SCH (13:14)
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
[2018-01-21] MEDS: TRAZODONE HCL 50 MG TAB PO SCH (21:30)
[2018-01-22 06:55] VITALS: BP_SYST 102; BP_SYST 120; BP_DIAS 64; BP_DIAS 70; PULSE 61; PULSE 83; TEMP 36.5
[2018-01-22] MEDS: LITHIUM CARBONATE 300 MG TAB PO SCH ×2 (09:07→21:23)
[2018-01-22] MEDS: LEVOTHYROXINE 50 MCG TAB PO SCH (09:07)
[2018-01-22] MEDS: NICOTINE 14 MG/24 HR TDSY TD SCH (09:07)
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
[2018-01-22] MEDS: TRAZODONE HCL 50 MG TAB PO SCH (21:23)
[2018-01-23 06:57] VITALS: BP_SYST 99; BP_DIAS 59; BP_DIAS 64; PULSE 52; PULSE 57; TEMP 36.5
[2018-01-23] MEDS: NICOTINE 14 MG/24 HR TDSY TD SCH (08:56)
[2018-01-23] MEDS: LEVOTHYROXINE 50 MCG TAB PO SCH (08:56)
[2018-01-23] MEDS: LITHIUM CARBONATE 300 MG TAB PO SCH ×2 (08:56→21:25)
--- NOTE | 2018-01-23 10:15 | Psych Management Progress Note ---
Psychiatry Miscellaneous Date of Service: Jan 23, 2018. Patient seen, MS assessed. Rates mood as improving. Encouraged cooperation with care and treatment plan as outlined by allied health prescriber.
--- NOTE | 2018-01-23 10:32 | Psychiatric Progress Notes ---
Progress Note Date of Service Jan 23, 2018. Interval History Emma is a 22-year-old white female with past psychiatric history of bipolar disorder, generalized anxiety disorder, and insomnia who was admitted to [facility] on a 302 petition signed by her mother after texting suicidal threats to both her mother and her girlfriend following a fight with her girlfriend. Pt was recently discharged from [facility] after a 30 day stay which was one of many. She also has a history of several previous inpatient psychiatric stays and also was imprisoned for 50 days. She has a significant history of SA and medication noncompliance which requires ongoing mental health treatment as medications are initiated and while determining need for dose adjustments to allow for stabilization of mood. Pt is at risk of decompensation and self harm if discharged prematurely. Chief Complaint "I'm good but I need to talk about my meds" Subjective Patient was seen & assessed. Interval progress reviewed with Treatment Team. The patient reports remembering my visit with her yesterday. She was quite fatigued then and notes that she continues with feelings of exhaustion. She is sleeping and eating well. She describes her mood as "good" today and reports a minor mood change of "angry " last pm when her mother brought her a favorite blanket that was not allowed to be used on the U because "it had skulls" on it. The patients mother brought a new blanket which shifted her mood back to "good" per patient. She rates her mood today as an 8/10. She is making efforts to go to groups and is doing art therapy. She denies SI/ HI plan or intent but admits her mood isn't stable yet as she was off of her meds prior to admission. She feels a little down. She reports being off of her meds because she did not like "tremors" that they cause because the tremors interfere with her writing skills which she needs to have for her job. However, she feels the meds are the best combo that she has had. She denies akathesia. Review of Systems Psych: denies symptoms other than stated above Constitutional: denied Cardiovascular: denied GI: denied Neurologic: denied Remainder of 10 body systems also reviewed and denied other than noted above. Sleep Information Total Hours of Sleep: 9.25 Meal Information Percent of Breakfast Consumed: 100 Percent of Lunch Consumed: 90 Percent of Dinner Consumed: 100 Mental Status Exam During interview pt is: alert and oriented, cooperative, other (relaxed) Appearance: appropriately dressed, disheveled Eye contact is: good Motor behavior is: steady gait & station, no abnormal motor movements Speech: normal in rate, rhythm & volume Affect: depressed, flat Mood is: depressed Thought process: goal directed Thought content: reality based without delusions Suicidal thought are: denied (however, present via text messaging prior to admission), Plan: denied Homicidal thoughts are: denied Hallucinations: denies auditory, denies visual Cognition: memory grossly intact, attention grossly intact, language grossly intact Intelligence estimated to be: consistent with level of education Insight: limited Judgement: limited Impression 22-year-old female with past psychiatric history of bipolar disorder, generalized anxiety disorder, insomnia, SIB and Substance Abuse history who self reports that she is not mood stable. She feels the current meds are her best combination of meds in context of controlling her moods but she reports a prior side effect of tremors which so she stopped them instead of discussing this issue with her prescriber. She is still with limited insight and judgement about her mental health and D&A issues overall. She requires ongoing mental health treatment. As medications are initiated and dose adjustments are made she will be monitored for side effects. She is encouraged to attend groups and to become involved in the milieu of the [facility]. Plan (1) Suicidal ideation 01/21 - The patient is admitted to [facility] ([facility] unit) on q 15 min checks (behavioral with suicide precautions) for safety. The patient will participate in group, recreational and milieu therapies and will be offered additional individual and family sessions as clinically appropriate. - Work with patient to develop safety plan and focus on health coping strategies (2) Bipolar disorder 01/21 - Restart [place] 300mg BID. [place] level ordered for 01/25 to recheck, as it is clear she has not been taking it regularly - Restart Trazodone 150mg qHS for insomnia - Family meeting with identified supports - Encourage participation in group and recreational therapies and focus on healthy coping strategies - Communication with CYS and correction officer head as necessary during her stay 01/22 -- continue current treatment plan 01/23 -- continue current meds and treatment plan. Will continue to monitor for for tremors. (3) Generalized anxiety disorder with panic attacks 01/21 - Continue buspirone 20mg BID - Encourage healthy coping strategies 01/23 - continue current treatment plan and meds (4) Post traumatic stress disorder (PTSD) 01/21 - See recommendations above - Encourage use of healthy coping skills to handle intrusive thoughts (5) Hypothyroidism 01/21 - TSH = 0.322 upon admission. Continue current home dosing of levothyroxine. 01/23 -- no tremors noted. TSH wnl. Dr. Catherine has personally been involved in the review of the above case and development of recommendations. Discharge / Aftercare Planning Primary Care Physician: Name: Unknown Therapist: Name: Ashlee Patton Date of Appointment: February 01, 2018 Time of Appointment: 2:00 p.m. Appointment Notes: [facility] [place] [address] Senior Android Developer: Name: Joselito Tee Assets Strengths: determination, future oriented with hope to get children back Needs: outpatient providers, medication compliance Risk Factors Assessment : Yes /single/: Yes Access to guns: No Health problems: No Mental Health Diagnoses: Yes Substance use disorders: Yes Previous attempt: No Family history of suicide: No Previous psychiatric stay: Yes Hopelessness: No Smoker: Yes Protective Factors Assessment : No Responsible for young children: Yes (with CYS involvement) Employed: Yes Stable relationships: No Supportive family: No Data Vital Signs Last 24 Hrs: Date Time Temp Pulse Resp B/P (MAP) Pulse Ox O2 Delivery O2 Flow Rate FiO2 01/23/18 06:57 36.5 52 16 99/59 57 99/64 Meds Administered Last 24 Hrs: Meds Administered (Past 24Hrs) Medications (Trade) Dose Ordered Sig/Marzena Route Start Time Stop Time Status Last Admin Dose Admin Trazodone HCl (Desyrel Tab) 150 mg HS PO 01/21/18 22:00 02/20/18 21:59 01/22/18 21:23 150 MG Nicotine (Nicoderm Cq 14MG Patch) 1 patch QAM TD 01/21/18 12:30 02/20/18 12:29 01/23/18 08:56 1 PATCH Miscellaneous (Remove Nicoderm Patch) 1 ea HS N/A 01/21/18 22:00 02/20/18 21:59 01/22/18 21:24 1 EA
[2018-01-23] MEDS: TRAZODONE HCL 50 MG TAB PO SCH (21:25)
[2018-01-24 06:38] VITALS: BP_SYST 108; BP_SYST 95; BP_DIAS 59; BP_DIAS 64; PULSE 49; PULSE 63; TEMP 36.6
[2018-01-24] MEDS: LEVOTHYROXINE 50 MCG TAB PO SCH (08:26)
[2018-01-24] MEDS: LITHIUM CARBONATE 300 MG TAB PO SCH ×2 (08:26→21:02)
[2018-01-24] MEDS: NICOTINE 14 MG/24 HR TDSY TD SCH (08:38)
--- NOTE | 2018-01-24 11:03 | Psychiatric Progress Notes ---
Progress Note Date of Service Jan 24, 2018. Interval History Emma is a 22-year-old white female with past psychiatric history of bipolar disorder, generalized anxiety disorder, and insomnia who was admitted to [facility] on a 302 petition signed by her mother after texting suicidal threats to both her mother and her girlfriend following a fight with her girlfriend. Pt was recently discharged from [facility] after a 30 day stay which was one of many. She also has a history of several previous inpatient psychiatric stays and also was imprisoned for 50 days. She has a significant history of SA and medication noncompliance which requires ongoing mental health treatment as medications are initiated and while determining need for dose adjustments to allow for stabilization of mood. Chief Complaint "A lot better ". Subjective Patient was seen & assessed interval progress reviewed with Treatment Team. Staff report she had a family meeting with her mother and stepfather yesterday, which was difficult. They discussed her refusal to accept their help, resisting the structure of the home and the rules. Her mother had a notebook with a list of unacceptable things that the patient has done. She became overwhelmed and discussing this, discouraged, and verbally combative. She eventually agreed to consider a local [facility] and [facility] transitions services. The importance of good adherence to medication regimens was discussed , and she plans to use a timer on her phone to remind her to take her meds, while her mother agreed to fill a weekly pillbox. She was less withdrawn to her room yesterday, and engaged more with staff and peers, attended groups and participated appropriately. She processed some of her stressors, including problems with her employer and girlfriend. She talked about her anger at her ex -girlfriend, stating that if she saw her she would want to choke her, but did not think she would act on those thoughts. She is reported feeling overly tired here, which she attributes to medications, and also reported having stopped her meds on her own due to tremors. She has been restarted on lithium and trazodone, and continued on buspirone for anxiety. Today on my assessment, the patient states she is feeling much more stable now that she is back on her medications. She admits to stopping them on her own due to a tremor, and states the tremor is still present but is very slight and is currently manageable. She feels lithium is the only medication that works for her, and says that it "makes me feel better about myself, like a weight off my shoulders. " Discussed that there are ways to mitigate side effects such as tremor if they occur, and the importance of talking about her medications and any side effects with her prescribing physician, and not just changing the medications on her own. She denies suicidal thoughts, reports good appetite, and fair sleep. She says that the meeting with her mother went well, and that her mother wants her to be discharged today and come spend the night at her home tonight. She claims this was discussed during the meeting, although per the social insurance analyst it was not. She further states that her mother will take care of getting her into [facility], as "she knows everyone there." She is very focused on being discharged today, stating that she has a "Mother's Day visit with my kids" scheduled for tomorrow morning, and is certain that it could not be rescheduled. She has not tried to discuss this with [facility], stating she does not know their number. Reviewed with the social insurance analyst who did her family meeting yesterday, who confirmed that there was no discussion of the patient going to her mother's home, and that she will give her the phone number to call and reschedule her visit with her children. Review of Systems + Mild intermittent upper extremity tremor Sleep Information Total Hours of Sleep: 7.75 Meal Information Percent of Breakfast Consumed: 100 Percent of Lunch Consumed: 80 Percent of Dinner Consumed: 100 Mental Status Exam During interview pt is: alert and oriented, cooperative, other (relaxed) Appearance: appropriately dressed, disheveled, other (Dressed in a worn-out T- shirt and leggings, long blonde hair, nose ring and multiple rings on, sparkly nail [place] citizen) Eye contact is: good Motor behavior is: steady gait & station, no abnormal motor movements Speech: normal in rate, rhythm & volume Affect: depressed, tearful, other (Incongruent with stated mood) Mood is: other ("A lot better") Thought process: goal directed, perseveration (On discharge) Thought content: reality based without delusions Suicidal thought are: denied Homicidal thoughts are: denied Hallucinations: denies auditory, denies visual Cognition: memory grossly intact, attention grossly intact, language grossly intact Intelligence estimated to be: consistent with level of education Insight: limited Judgement: limited Impression 22-year-old female with past psychiatric history of bipolar disorder, generalized anxiety disorder, insomnia, SIB and polysubstance abuse history who is admitted on a 302 involuntary commitment after sending text messages to multiple people indicating suicidal thoughts and an episode of violence towards her girlfriend. She has been restarted on lithium, and a family meeting held with her mother yesterday, with a discussed the patient's inability to follow rules and her mother's home, and the plan for [facility]. At this time, she continues to require inpatient mental health treatment, she continues to display unstable mood and lacks a safe discharge plan. She has not necessarily been forthcoming with information, we need to ensure that she has a safe place to stay and adequate supports prior to discharge in order to decrease the risk of suicide or harm to others. Plan (1) Suicidal ideation 01/21 - The patient is admitted to [facility] ([facility]) on q 15 min checks (behavioral with suicide precautions) for safety. The patient will participate in group, recreational and milieu therapies and will be offered additional individual and family sessions as clinically appropriate. - Work with patient to develop safety plan and focus on health coping strategies (2) Bipolar disorder 01/21 - Restart [place] 300mg BID. [place] level ordered for 01/25 to recheck, as it is clear she has not been taking it regularly - Restart Trazodone 150mg qHS for insomnia - Family meeting with identified supports - Encourage participation in group and recreational therapies and focus on healthy coping strategies - Communication with CYS and returning officer as necessary during her stay 01/22 -- continue current treatment plan 01/23 -- continue current meds and treatment plan. Will continue to monitor for for tremors. 01/24 -continue lithium; trough level ordered for tomorrow. Continue trazodone at bedtime. -Family meeting held with mother yesterday; patient is not able to return there due to unwillingness to follow the rules, so is being referred to [facility]. -Coordinate care with outpatient providers and schedule follow-up appointments with her psychiatric PA Dayna Fuentes at [place], and therapist at [facility]. (3) Generalized anxiety disorder with panic attacks 01/21 - Continue buspirone 20mg BID - Encourage healthy coping strategies 01/23 - continue current treatment plan and meds (4) Post traumatic stress disorder (PTSD) 01/21 - See recommendations above - Encourage use of healthy coping skills to handle intrusive thoughts (5) Hypothyroidism 01/21 - TSH = 0.322 upon admission. Continue current home dosing of levothyroxine. 01/23 -- no tremors noted. TSH wnl. (6) Cannabis use disorder, moderate, dependence 01/24 -UDS positive for THC. Patient has been educated about the risks of substance abuse and the recommendations for abstinence. Coordinate care with outpatient substance abuse treatment provider at [facility]. (7) Methamphetamine use 01/24 -UDS positive for methamphetamine/amphetamine, confirmatory tests are pending. Patient denies recent abuse of stimulants, but reports a long history of abuse of "speed." -Follow up on confirmatory test results. -Follow-up at [facility] for substance abuse treatment. Discharge / Aftercare Planning Primary Care Physician: Name: Unknown Psychiatrist: Name: Marry Fuentes Date of Appointment: February 02, 2018 Time of Appointment: 8:15 am Appointment Notes: [address] [place] [id number] Therapist: Name: Ashlee [employer] Date of Appointment: February 01, 2018 Time of Appointment: 2:00 p.m. Appointment Notes: [facility] [place] [address] Sample Finisher: Name: Joselito Visit Code E&M Code: 16763 Inventory Assets Strengths: determination, future oriented with hope to get children back Needs: outpatient providers, medication compliance, abstinence from substances of abuse Risk Factors Assessment : Yes /single/: Yes Higher / Fall in social status: No Access to guns: No Health problems: No Mental Health Diagnoses: Yes Substance use disorders: Yes Previous attempt: No Family history of suicide: No Previous psychiatric stay: Yes Hopelessness: No Smoker: Yes Protective Factors Assessment : No Responsible for young children: Yes (with CYS involvement) Employed: Yes Stable relationships: No Supportive family: Yes Data Vital Signs Last 24 Hrs: Date Time Temp Pulse Resp B/P (MAP) Pulse Ox O2 Delivery O2 Flow Rate FiO2 01/24/18 06:38 36.6 49 16 108/64 63 95/59
[2018-01-24] MEDS: TRAZODONE HCL 50 MG TAB PO SCH (21:02)
[2018-01-25 06:31] VITALS: BP_SYST 104; BP_SYST 106; BP_DIAS 62; BP_DIAS 64; PULSE 46; PULSE 59; TEMP 36.3
[2018-01-25] MEDS: LEVOTHYROXINE 50 MCG TAB PO SCH (08:39)
[2018-01-25] MEDS: LITHIUM CARBONATE 300 MG TAB PO SCH (08:39)
[2018-01-25] MEDS: NICOTINE 14 MG/24 HR TDSY TD SCH (08:41)
[2018-01-25] MEDS ORDERED: NICO14DI5 TD (09:04)
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
== END 2018-01-25 09:52 | disposition home or self-care (01) | DRG 885 ==
LOC: C.EDA 19:18 → C.MHU 01-21 03:09
PROVIDERS: ADMIT Psychiatry & Neurology Child & Adolescent Psychiatry; ATTEND Psychiatry & Neurology Child & Adolescent Psychiatry
DX: F31.9 Bipolar disorder, unspecified (principal); R45.851 Suicidal ideations; F41.1 Generalized anxiety disorder; F43.10 Post-traumatic stress disorder, unspecified; E03.9 Hypothyroidism, unspecified; F17.200 Nicotine dependence, unspecified, uncomplicated; Z79.899 Other long term (current) drug therapy; F12.20 Cannabis dependence, uncomplicated

== ENCOUNTER 2018-02-15 16:45 | Emergency (ER) | payer OTHER ==
[~2018-02-15] VITALS: Ht 157.5 cm; Wt 60.5 kg
[~2018-02-15 16:45] MED LIST changes: -CIPR-255 PO; +NICO14DI5 TD
[2018-02-15 16:51] VITALS: TEMP 36.8; Ht 157.5 cm; Wt 60.5 kg
[2018-02-15] MEDS ORDERED: CRAN1TAB4 PO (17:12)
[2018-02-15] MEDS ORDERED: ONDANSETRON INJ 2 MG/ML 2 ML VIAL IV STA (17:19)
[2018-02-15] MEDS ORDERED: KETOROLAC TROMETHAMINE 30 MG/ML VIAL IV STA (17:19)
[2018-02-15] MEDS ORDERED: SODIUM CHLORIDE 0.9% 1000ML 1,000 ML IV STA (17:19)
[2018-02-15] MEDS ORDERED: CEFTRIAXONE SOD INJ 1 GM ADDVIAL IV STA (17:28)
--- NOTE | 2018-02-15 17:29 | EMERGENCY ROOM VISIT NOTE ---
ED Visit Note First contact with patient: 16:55 CHIEF COMPLAINT: UTI symptoms, bilateral flank pain HISTORY OF PRESENTING ILLNESS: This is a 23-year-old female who presents to the emergency department with complaint of symptoms of a UTI and bilateral flank pain for the past 2-3 days. She states the pain is constant, dull ache, currently rates as 9/10. She has not taken any gdcy-drt-wpurvyo pain medications for her symptoms. Patient states that she started taking cranberry pills when her symptoms started, but this has not helped. She states that she has an increased frequency, urgency, and urinating in small amounts. She also has had dysuria and has noticed cloudy urine with small amount of blood today. She has had some associated chills, but denies any fevers. She does state that she feels dehydrated. She reports a history of multiple UTIs and pyelonephritis in the past, she states that this feels the same. She states her last UTI was in June 2017. She states that she has been successfully treated with ciprofloxacin in the past. She denies any other symptoms of chest pain, shortness of breath, dizziness or syncope, back pain, diarrhea or constipation, bloody or black stools, abnormal vaginal bleeding or discharge, or unusual rash. REVIEW OF SYSTEMS: A complete 10 point review of systems was reviewed with the patient with pertinent positives and negatives as per history of present illness. All else were negative. PAST MEDICAL HISTORY: Reviewed in chart, see problem list below. SOCIAL HISTORY: Lives at home. Current everyday smoker. Denies alcohol or recreational drug use. ALLERGIES: No known allergies. PHYSICAL EXAM: CONSTITUTIONAL: Pleasant and cooperative. No acute distress. Mildly dehydrated , but otherwise well appearing and well nourished. HEENT: Normocephalic, atraumatic. Pupils equal, round and reactive to light, EOMI. TMs normal. Pharynx normal. Tacky mucous membranes. NECK: Supple, full active range of motion without discomfort. RESPIRATORY: Clear to auscultation bilaterally with no wheezing, crackles, rhonchi or stridor. Equal expansion bilaterally. CARDIOVASCULAR: Regular rate and rhythm with no murmurs, rubs or gallops. Normal peripheral perfusion. No edema. GASTROINTESTINAL: Diffuse mild tenderness throughout. No rebound tenderness or guarding. Bilateral mild CVA tenderness. Soft, nondistended. No palpable masses or HSM. Bowel sounds present in all quadrants. MUSCULOSKELETAL: Full range of motion of all joints without discomfort. INTEGUMENTARY: No rash or other significant dermatologic conditions noted. NEUROLOGIC: Alert and oriented X 4 with normal affect. Normal strength and sensation in all 4 extremities. No focal neurologic deficits noted. Normal speech. Normal gait observed. ED COURSE AND MEDICAL DECISION MAKING: CC: Patient presenting with complaint of symptoms of UTI, bilateral flank pain DIFFERENTIAL DIAGNOSIS: Includes, but not limited to UTI, pyelonephritis, ureteral stone, dehydration, electrolyte abnormality, among others. INTERPRETATION OF LABS: Mild leukocytosis, no anemia, no significant electrolyte abnormalities, normal renal function, normal liver enzymes and lipase. UA consistent with UTI. Urine negative. MEDICATION RECONCILIATION: I attest that I have personally reviewed the patient 's current medication list. INITIAL VITAL SIGNS REVIEW: I reviewed the patient's initial vital signs and interpret them as follows: T: Afebrile; BP: Normotensive; HR: Mildly tachycardic; RR: Within normal limits; Pulse Ox: Within normal limits on room air. Blood pressure screening: The patient was found to have normal blood pressure on screening and does not require follow-up for repeat blood pressure check. SUMMARY: Patient was evaluated at bedside, history and physical exam performed. Patient is alert and oriented, no acute distress, resting calmly in stretcher. Patient has mild bilateral CVA tenderness and mild diffuse abdominal tenderness to palpation, no acute abdomen. Orders were placed at bedside for labs, UA and urine , IV fluids for hydration, IV Toradol for pain. Patient discussed with Dr. Isidro, who agrees with my assessment and plan. Labs and imaging reviewed as above, consistent with UTI. Given bilateral flank pain and slight leukocytosis, suspect pyelonephritis. IV Rocephin 1 g and 500 mg oral ciprofloxacin ordered. Patient reassessed multiple times throughout ED stay, she states that her pain is significantly improved after the Toradol, and she is feeling better after the fluids. She has been able to tolerate PO well. There is a large amount of blood noted in urine, I discussed option of CT scan with the patient, utilizing shared decision making, she prefers to avoid CT scan at this time and verbalized understanding of return precautions. Patient was updated on all results and plan for discharge, she was encouraged to follow closely with her PCP. Rx for Cipro Floxin and Pyridium sent to pharmacy, and patient was educated regarding these medications. Patient was also given strict return precautions should her symptoms worsen, she verbalized understanding. Patient was discharged home in stable condition and ambulatory. 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 Surgical Problems: (1) History of adenoidectomy Status: Resolved Current/Historical Medications Scheduled Buspirone Hcl (Buspirone Hcl), 20 MG PO BID Ciprofloxacin Hcl (Cipro), 500 MG PO BID Levothyroxine Sodium (Levothyroxine Sodium), 50 MCG PO DAILY [place] Carbonate ([place] Carbonate), 300 MG PO BID Phenazopyridine HCl (Pyridium), 200 MG PO TID Trazodone HCl (Trazodone HCl), 150 MG PO HS Scheduled PRN Cranberry (Vaccinium Macrocarp (Cranberry), 3 TABS PO DAILY PRN for uti Allergies Coded Allergies: No Known Allergies (Unverified , 08/20/17) Vital Signs Date Time Temp Pulse Resp B/P (MAP) Pulse Ox O2 Delivery O2 Flow Rate FiO2 02/15/18 19:26 68 16 92/53 99 02/15/18 16:51 36.8 102 18 117/76 98 Room Air Laboratory Results 02/15/18 17:35 Red Blood Count 4.67, Mean Corpuscular Volume 88.7, Mean Corpuscular Hemoglobin 30.0, Mean Corpuscular Hemoglobin Concent 33.8, Mean Platelet Volume 9.0, Neutrophils (%) (Auto) 77.8, Lymphocytes (%) (Auto) 15.1, Monocytes (%) (Auto) 6.2, Eosinophils (%) (Auto) 0.4, Basophils (%) (Auto) 0.2, Neutrophils # (Auto) 8.77, Lymphocytes # (Auto) 1.70, Monocytes # (Auto) 0.70, Eosinophils # (Auto) 0.05, Basophils # (Auto) 0.02 02/15/18 17:35 Test 02/15/18 17:07 02/15/18 17:35 Urine Color YELLOW Urine Appearance TURBID (CLEAR) Urine pH 8.5 (4.5-7.5) Urine Specific [place] 1.019 (1.000-1.030) Urine Protein 2+ (NEG) Urine Glucose (UA) NEG (NEG) Urine Ketones NEG (NEG) Urine Occult Blood 3+ (NEG) Urine Nitrite POS (NEG) Urine Bilirubin NEG (NEG) Urine Urobilinogen NEG (NEG) Urine Leukocyte Esterase LARGE (NEG) Urine WBC (Auto) >30 /hpf (0-5) Urine RBC (Auto) >30 /hpf (0-4) Urine Hyaline Casts (Auto) 0 /lpf (0-5) Urine Epithelial Cells (Auto) 10-20 /lpf (0-5) Urine Bacteria (Auto) 3+ (NEG) Urine Yeast (Auto) (NONE PRSENT) Urine Test NEG (NEG) White Blood Count 11.27 K/uL (4.8-10.8) Red Blood Count 4.67 M/uL (4.2-5.4) Hemoglobin 14.0 g/dL (12.0-16.0) Hematocrit 41.4 % (37-47) Mean Corpuscular Volume 88.7 fL (80-100) Mean Corpuscular Hemoglobin 30.0 pg (25-34) Mean Corpuscular Hemoglobin Concent 33.8 g/dl (32-36) Platelet Count 265 K/uL (130-400) Mean Platelet Volume 9.0 fL (7.4-10.4) Neutrophils (%) (Auto) 77.8 % Lymphocytes (%) (Auto) 15.1 % Monocytes (%) (Auto) 6.2 % Eosinophils (%) (Auto) 0.4 % Basophils (%) (Auto) 0.2 % Neutrophils # (Auto) 8.77 K/uL (1.4-6.5) Lymphocytes # (Auto) 1.70 K/uL (1.2-3.4) Monocytes # (Auto) 0.70 K/uL (0.11-0.59) Eosinophils # (Auto) 0.05 K/uL (0-0.5) Basophils # (Auto) 0.02 K/uL (0-0.2) RDW Standard Deviation 42.9 fL (36.4-46.3) RDW Coefficient of Variation 13.2 % (11.5-14.5) Immature Granulocyte % (Auto) 0.3 % Immature Granulocyte # (Auto) 0.03 K/uL (0.00-0.02) Anion Gap 5.0 mmol/L (3-11) Est Creatinine Clear Calc Drug Dose 105.9 ml/min Estimated GFR () 138.7 Estimated GFR (Non- 119.7 BUN/Creatinine Ratio 15.1 (10-20) Calcium Level 9.3 mg/dl (8.5-10.1) Total Bilirubin 0.4 mg/dl (0.2-1) Direct Bilirubin < 0.1 mg/dl (0-0.2) Aspartate Amino Transf (AST/SGOT) 17 U/L (15-37) Alanine Aminotransferase (ALT/SGPT) 21 U/L (12-78) Alkaline Phosphatase 90 U/L (45-117) Total Protein 7.6 gm/dl (6.4-8.2) Albumin 3.9 gm/dl (3.4-5.0) Lipase 103 U/L (73-393) [place] Level < 0.2 mMOL/L (0.6-1.2) Medications Administered Medications (Trade) Dose Ordered Sig/Marzena Route Start Time Stop Time Status Last Admin Dose Admin Sodium Chloride 1,000 ml @ 999 mls/hr Q1H1M STAT IV 02/15/18 17:19 02/15/18 18:19 DC 02/15/18 17:45 999 MLS/HR Ondansetron HCl (Zofran Inj) 4 mg NOW STAT IV 02/15/18 17:19 02/15/18 17:22 DC 02/15/18 17:45 4 MG Ketorolac Tromethamine (Toradol Inj) 30 mg NOW STAT IV 02/15/18 17:19 02/15/18 17:23 DC 02/15/18 17:45 30 MG Ceftriaxone Sodium (Rocephin Inj) 1 gm NOW STAT IV 02/15/18 17:28 02/15/18 17:29 DC 02/15/18 17:46 1 GM Ciprofloxacin (Cipro Tab) 500 mg NOW STAT PO 02/15/18 18:18 02/15/18 18:19 DC 02/15/18 18:57 500 MG Departure Information Impression Primary Impression: Pyelonephritis Additional Impression: Acute cystitis Dispostion Home / Self-Care Condition GOOD Prescriptions Phenazopyridine HCl (Pyridium) 200 Mg Tab 200 MG PO TID for 3 Days, #9 TAB Prov: Slime Jimenez CRNP 02/15/18 Ciprofloxacin Hcl (CIPRO) 500 Mg Tab 500 MG PO BID for 10 Days, #19 TAB Prov: Slime Jimenez CRNP 02/15/18 Referrals No Doctor, Assigned (PCP) Patient Instructions ED Kidney Infec Female, [facility] Additional Instructions You have been treated in the Emergency Department for Pyelonephritis (kidney infection) and a Urinary Tract Infection (UTI). You have been prescribed ciprofloxacin to be taken twice a day for 10 days. This is an antibiotic. All antibiotics have the potential to cause diarrhea, you can eat yogurt every day or take a daily probiotic to help prevent this. Stop this medication and contact a medical provider if you were to develop any significant adverse side effects including: wheezing, shortness of breath, passing out, vomiting, or a diffuse rash. Always take antibiotics as directed and COMPLETE the ENTIRE course regardless of the improvement of your symptoms. You have been prescribed Pyridium to be taken as prescribed. This medicine will help with the urinary symptoms that you have been experiencing. Be aware that Pyridium may turn your urine a red-orange or brown color. This effect is harmless. Drink plenty of water and stay well hydrated. Please follow-up with your Primary Care Provider in the next few days to be rechecked. Return to the emergency department if your symptoms persist despite treatment plan outlined above or if the following symptoms occur: increased fevers, chills , low back pain, nausea/vomiting, or blood in your urine. Work Instructions Return To Work: 2 days Problem Qualifiers Additional Impression: Acute cystitis Hematuria presence: with hematuria Qualified Codes: N30.01 - Acute cystitis with hematuria
[2018-02-15 17:45] LABS: BASO % 0.2 %; BASO ABS # 0.02 K/uL (0-0.2); EOS % 0.4 %; EOS ABS # 0.05 K/uL (0-0.5); HEMATOCRIT 41.4 % (37-47); IG# 0.03 K/uL (0.00-0.02); LYMPH % 15.1 %; MEAN CELL VOLUME 88.7 fL (80-100); MEAN CORPUSCULAR HGB CONC 33.8 g/dl (32-36); MONO % 6.2 %; NEUT % 77.8 %; NEUT ABS # 8.77 K/uL (1.4-6.5); PLATELET COUNT 265 K/uL (130-400); RED CELL DISTRIBUTION WIDTH CV 13.2 % (11.5-14.5); RED CELL DISTRIBUTION WIDTH SD 42.9 fL (36.4-46.3); WHITE BLOOD COUNT 11.27 K/uL (4.8-10.8)
[2018-02-15 18:09] LABS: ALBUMIN 3.9 gm/dl (3.4-5.0); ALKALINE PHOSPHATASE 90 U/L (45-117); ALT/SGPT 21 U/L (12-78); AST/SGOT 17 U/L (15-37); BLOOD UREA NITROGEN 11 mg/dl (7-18); CALCIUM 9.3 mg/dl (8.5-10.1); CARBON DIOXIDE 25 mmol/L (21-32); CREATININE 0.72 mg/dl (0.60-1.20); GLUCOSE 81 mg/dl (70-99); LIPASE 103 U/L (73-393); POTASSIUM 3.8 mmol/L (3.5-5.1); SODIUM 137 mmol/L (136-145); TOTAL PROTEIN 7.6 gm/dl (6.4-8.2)
[2018-02-15] MEDS ORDERED: CIPROFLOXACIN 500 MG TAB PO STA (18:18)
[2018-02-15] MEDS ORDERED: PHEN-876 PO (18:20)
[2018-02-15] MEDS ORDERED: CIPR-255 PO (18:20)
[2018-02-15 19:26] VITALS: BP 92/53; PULSE 68; O2SAT 99
[2018-02-15] MEDS ORDERED: BUSP-8 PO (20:37)
[2018-02-15] MEDS ORDERED: LTH300C PO (20:37)
[2018-02-15] MEDS ORDERED: LEVO50TA6 PO (20:37)
[2018-02-15] MEDS ORDERED: DSY/150 PO (20:37)
--- NOTE | 2018-02-17 13:59 | Pharmacy Progress Note ---
ED Pharmacist Culture FollowUp Date of Service: February 17, 2018. Patient was sent home with a prescription for cipro 500mg BID X 10 days, which should cover the E. coli growing from the patient's urine culture.
== END 2018-02-15 19:27 | disposition home or self-care (01) ==
LOC: C.EDB 16:46 → C.EDA 19:27
DX: N12 Tubulo-interstitial nephritis, not specified as acute or chronic (principal); N30.00 Acute cystitis without hematuria; R10.9 Unspecified abdominal pain; F17.210 Nicotine dependence, cigarettes, uncomplicated; Z79.899 Other long term (current) drug therapy; F32.9 Major depressive disorder, single episode, unspecified; I45.6 Pre-excitation syndrome

== ENCOUNTER 2018-05-18 20:08 | Emergency (ER) | payer OTHER ==
[~2018-05-18] VITALS: Ht 157.5 cm; Wt 60.6 kg
[~2018-05-18 20:08] MED LIST changes: +CIPR-255 PO; +CRAN1TAB4 PO; -NICO14DI5 TD
[2018-05-18 20:24] VITALS: TEMP 37.1; Ht 157.5 cm; Wt 60.6 kg
[2018-05-18] MEDS ORDERED: LEVO50TA6 PO (20:37)
[2018-05-18] MEDS ORDERED: DSY/150 PO (20:37)
[2018-05-18] MEDS ORDERED: LTH300C PO (20:37)
[2018-05-18] MEDS ORDERED: BUSP-8 PO (20:37)
--- NOTE | 2018-05-18 22:53 | DIAGNOSTIC IMAGING REPORT ---
CHEST 2 VIEWS ROUTINE CLINICAL HISTORY: 23 years-old Female presenting with cough . TECHNIQUE: PA and lateral views of the chest were obtained. COMPARISON: 08/09/2017. FINDINGS: Cardiomediastinal silhouette normal. Lungs and pleural spaces clear. Osseous structures normal. Upper abdomen normal. IMPRESSION: 1. No acute cardiopulmonary disease. Electronically signed by: Haider Mariee M.D. 05/18/2018 10:51 PM Dictated Date/Time: 05/18/2018 10:50 PM
[2018-05-18] MEDS ORDERED: PENI-82 PO (23:12)
[2018-05-18] MEDS ORDERED: PENICILLIN V POTASSIUM 250 MG TAB PO ONE (23:15)
[2018-05-18 23:20] VITALS: BP 104/72; PULSE 81; O2SAT 100
--- NOTE | 2018-05-19 01:15 | EMERGENCY ROOM VISIT NOTE ---
History Report prepared by Johnathon: Liz Maki Under the Supervision of: Andi BrantleyO. First contact with patient: 21:31 Chief Complaint: SORETHROAT Stated Complaint: SINUS INFECTION/STREP THROAT/DEHYDRATION History of Present Illness The patient is a 23 year old female who presents to the Emergency Room with complaints of a constant sore throat that began yesterday at work. The patient states that she also has a cough that wakes her up at night. She states that she coughs up either green or yellow phlegm when she coughs. The patient denies a runny nose, chest pain, abdominal pain, fevers, or urinary symptoms. She states that she has been having chills. The patient also states that while in [employer] she had strep throat and she has similar symptoms currently. She states that she smokes a lot of cigarettes and does not want to quit. The patient also states that she currently has her menstrual period. Source of History: patient Onset: yesterday Position: throat Quality: other (sore ) Timing: constant Associated Symptoms: + chills, No fevers, No abdominal pain Review of Systems See HPI for pertinent positives & negatives. A total of 10 systems reviewed and were otherwise negative. Past Medical & Surgical Medical Problems: (1) Abnormal TSH (2) ACUTE PHARYNGITIS (3) Bipolar disorder (4) Cannabis use disorder, moderate, dependence (5) Chronic fatigue (6) Dehydration (7) Dental caries (8) DEPRESSIVE DISORDER NEC (9) Fall (10) Generalized anxiety disorder with panic attacks (11) Hypothyroidism (12) Methamphetamine use (13) Post traumatic stress disorder (PTSD) (14) at early stage (15) PROM (premature rupture of membranes) (16) Spontaneous onset of labor (17) Suicidal ideation (18) Syncope (19) UTI (lower urinary tract infection) (20) Vomiting complicating (21) Vomiting complicating (22) Lfclg-Jfylcrqse-Yspar (WPW) syndrome (23) Jiywv-Trogqqakg-Qmogp (WPW) syndrome Surgical Problems: (1) History of adenoidectomy Family History Diabetes mellitus Gallbladder disease Heart disease Hypertension Social History Smoking Status: Current Every Day Smoker Alcohol Use: none Drug Use: none Marital Status: single Housing Status: lives with family Occupation Status: employed Current/Historical Medications Scheduled Buspirone Hcl (Buspirone Hcl), 20 MG PO BID Levothyroxine Sodium (Levothyroxine Sodium), 50 MCG PO DAILY [place] Carbonate ([place] Carbonate), 300 MG PO BID Penicillin V Potassium (Veetids), 500 MG PO BID Trazodone HCl (Trazodone HCl), 150 MG PO HS Scheduled PRN Cranberry (Vaccinium Macrocarp (Cranberry), 3 TABS PO DAILY PRN for UTI Allergies Coded Allergies: No Known Allergies (Unverified , 08/20/17) Physical Exam Vital Signs Date Time Temp Pulse Resp B/P (MAP) Pulse Ox O2 Delivery O2 Flow Rate FiO2 05/18/18 23:20 81 18 104/72 100 Room Air 05/18/18 21:49 81 16 114/73 97 Room Air 05/18/18 21:48 97 Room Air 05/18/18 20:24 37.1 95 18 112/72 98 Room Air Physical Exam GENERAL: Sitting up in bed, alert, well appearing, well nourished, no distress, non-toxic EYE EXAM: normal conjunctiva. EARS: TMs clear bilateral OROPHARYNX: Erythema in the posterior oropharynx NECK: supple, no nuchal rigidity, no adenopathy, non-tender LUNGS: Clear to auscultation. Normal chest wall mechanics HEART: no murmurs, S1 normal and S2 normal ABDOMEN: abdomen soft, non-tender, normo-active bowel sounds, no masses, no rebound or guarding. BACK: Back is symmetrical on inspection and there is no deformity, no midline tenderness, no CVA tenderness. SKIN: no rashes and no bruising UPPER EXTREMITIES: upper extremities are grossly normal. LOWER EXTREMITIES: No pitting edema. NEURO EXAM: Normal sensorium, cranial nerves II-XII grossly intact, normal speech, no gross weakness of arms, no gross weakness of legs. Medical Decision & Procedures ER Provider Diagnostic Interpretation: Radiology results as stated below per my review and the radiologist's interpretation: CHEST 2 VIEWS ROUTINE CLINICAL HISTORY: 23 years-old Female presenting with cough . TECHNIQUE: PA and lateral views of the chest were obtained. COMPARISON: 08/09/2017. FINDINGS: Cardiomediastinal silhouette normal. Lungs and pleural spaces clear. Osseous structures normal. Upper abdomen normal. IMPRESSION: 1. No acute cardiopulmonary disease. Electronically signed by: Haider Mariee M.D. 05/18/2018 10:51 PM Dictated Date/Time: 05/18/2018 10:50 PM Laboratory Results Date/Time Source Procedure Growth Status 05/18/18 22:42 Throat Group A Streptococcus Screen - Final SPECIMEN POSITIVE FOR GROUP A BETA ST... Complete 05/18/18 22:42 Throat Group A Streptococcus Screen ([facility]) - Final Complete Laboratory results per my review. Medications Administered Medications (Trade) Dose Ordered Sig/Marzena Route Start Time Stop Time Status Last Admin Dose Admin Penicillin V Potassium (Veetids Tab) 500 mg ONE ONCE PO 05/18/18 23:15 05/18/18 23:16 DC 05/18/18 23:19 500 MG ED Course ED COURSE: Vital signs were reviewed and showed hypertension The patients medical record was reviewed The above diagnostic studies were performed and reviewed. ED treatments and interventions as stated above. 4: The patient was evaluated in room B5. A complete history and physical examination was performed. 2314: Upon reevaluation, the patient is doing better. I discussed my findings with the patient and she understands and agrees with the treatment plan. Based on the patients age, coexisting illnesses, exam and lab findings the decision to treat as an outpatient was made. The patient remained stable while under my care. The patient appeared well at the time of discharge. Medical Decision Differential diagnoses includes but is not limited to acute coronary syndrome, myocardial infarction, pericarditis, pulmonary embolus, aortic dissection, pneumonia, pneumothorax, musculoskeletal, shingles, esophageal. Patient is a 23-year-old female who presents to ER for sore throat. Patient notes that she also has myalgias otherwise. Rapid strep was positive. Chest x- ray unremarkable. Patient was given a dose of penicillin and discharged follow- up with PCP as an outpatient. Discussed with Pt concerning signs and symptoms to watch out for. Pt was instructed to follow up with their PCP and discussed with the patient their option to return to the ED at anytime for persistent or worsening symptoms. The appropriate anticipatory guidance and out-patient management, including indications for return to the emergency department, were explained at length to the patient and understood. Medication Reconcilliation Current Medication List: was personally reviewed by me Blood Pressure Screening Patient's blood pressure: Normal blood pressure Impression Primary Impression: Strep pharyngitis Scribe Attestation The scribe's documentation has been prepared under my direction and personally reviewed by me in its entirety. I confirm that the note above accurately reflects all work, treatment, procedures, and medical decision making performed by me. Departure Information Dispostion Home / Self-Care Prescriptions Penicillin V Potassium (Veetids) 500 Mg Tab 500 MG PO BID, #20 TAB Prov: Pawan Nathan Mondragon, DO 05/18/18 Referrals No Doctor, Assigned (PCP) Forms HOME CARE DOCUMENTATION FORM, IMPORTANT VISIT INFORMATION Patient Instructions [facility] Additional Instructions Please follow up with your primary care doctor with in the next 24 hours. Any worsening of your symptoms, please return to the ED immediately. This includes any fevers greater than 100.4, worsening pain, chest pain, shortness breath, persistent nausea, vomiting, unable to eat or drink, or any other concerning signs or symptoms from your standpoint. Please take your antibiotics as prescribed.
== END 2018-05-18 23:21 | disposition home or self-care (01) ==
LOC: C.EDB 20:09
DX: J02.0 Streptococcal pharyngitis (principal); F31.9 Bipolar disorder, unspecified; F32.9 Major depressive disorder, single episode, unspecified; E03.9 Hypothyroidism, unspecified; F43.10 Post-traumatic stress disorder, unspecified; I45.6 Pre-excitation syndrome; F17.210 Nicotine dependence, cigarettes, uncomplicated; Z79.899 Other long term (current) drug therapy

== ENCOUNTER 2018-05-24 03:46 | Emergency (ER) | payer OTHER ==
[~2018-05-24] VITALS: Ht 157.5 cm; Wt 59.6 kg
[~2018-05-24 03:46] MED LIST changes: +BUSP-8 PO; -CIPR-255 PO; +DSY/150 PO; +LEVO50TA6 PO; +LTH300C PO; +PENI-82 PO
[2018-05-24 03:57] VITALS: TEMP 37.1; Ht 157.5 cm; Wt 59.6 kg
[2018-05-24 04:25] LABS: HEMATOCRIT 42.9 % (37-47); HEMOGLOBIN 14.6 g/dL (12.0-16.0); MEAN CELL VOLUME 92.3 fL (80-100); MEAN CORPUSCULAR HEMOGLOBIN 31.4 pg (25-34); MEAN PLATELET VOLUME 9.8 fL (7.4-10.4); PLATELET COUNT 258 K/uL (130-400); RED CELL DISTRIBUTION WIDTH CV 12.9 % (11.5-14.5); RED CELL DISTRIBUTION WIDTH SD 43.3 fL (36.4-46.3); WHITE BLOOD COUNT 5.13 K/uL (4.8-10.8)
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
[2018-05-24 04:46] LABS: ALBUMIN 3.8 gm/dl (3.4-5.0); ALT/SGPT 25 U/L (12-78); AST/SGOT 18 U/L (15-37); BLOOD UREA NITROGEN 8 mg/dl (7-18); CALCIUM 8.6 mg/dl (8.5-10.1); CARBON DIOXIDE 23 mmol/L (21-32); CREATININE 0.81 mg/dl (0.60-1.20); GLUCOSE 98 mg/dl (70-99); POTASSIUM 3.4 mmol/L (3.5-5.1); SODIUM 140 mmol/L (136-145)
[2018-05-24 04:52] LABS: ALKALINE PHOSPHATASE 105 U/L (45-117); TOTAL PROTEIN 7.7 gm/dl (6.4-8.2)
[2018-05-24 11:19] VITALS: BP 112/72; PULSE 74; O2SAT 98
--- NOTE | 2018-05-24 14:11 | EMERGENCY ROOM VISIT NOTE ---
ED Visit Note The patient was signed out to me awaiting placement. She was accepted to the [facility] and secure transport arranged.
== END 2018-05-24 11:20 ==
LOC: C.EDB 03:48 → C.EDA 11:20
DX: R45.850 Homicidal ideations (principal); F31.9 Bipolar disorder, unspecified; E03.9 Hypothyroidism, unspecified; I45.6 Pre-excitation syndrome; F17.200 Nicotine dependence, unspecified, uncomplicated

== ENCOUNTER 2019-01-17 11:33 | Inpatient (IN) ==
[2019-01-17 11:59] LABS: Basophils # (auto) 0.02 K/uL (0-0.2); Basophils % (auto) 0.3 %; Eosinophils # (auto) 0.02 K/uL (0-0.5); Eosinophils % (auto) 0.3 %; Hemoglobin 15.7 g/dL (12.0-16.0); Immature Granulocytes # (auto) 0.01 K/uL (0.00-0.02); Immature Granulocytes % (auto) 0.2 %; Lymphocytes # (auto) 1.58 K/uL (1.2-3.4); Lymphocytes % (auto) 23.9 %; Mean Corpuscular Hgb Conc 34.9 g/dL (32-36); Mean Corpuscular Volume 93.6 fL (80-100); Mean Platelet Volume 9.5 fL (7.4-10.4); Monocytes # (auto) 0.24 K/uL (0.11-0.59); Monocytes % (auto) 3.6 %; Neutrophils # (auto) 4.75 K/uL (1.4-6.5); Neutrophils % (auto) 71.7 %; Platelet Count 227 K/uL (130-400); RDW Coefficient of Variation 12.6 % (11.5-14.5); RDW Standard Deviation 43.5 fL (36.4-46.3); Red Blood Count 4.81 M/uL (4.2-5.4); White Blood Count 6.62 K/uL (4.8-10.8)
[2019-01-17 12:03] LABS: Appearance Urine Cloudy (Clear); Bacteria Urine Automated 3+ (Negative); Bilirubin Urine Negative (Negative); Blood Urine Trace (Negative); Color Urine Dark Yellow; Epithelial Cell Urine Auto >30 /lpf (0-5); Glucose Urine UA Negative (Negative); Leukocyte Esterase Urine Trace (Negative); Nitrite Urine Positive (Negative); Protein Urine Negative (Negative); Specific Gravity Urine 1.027 (1.000-1.030); Urobilinogen Urine Negative (Negative); pH Urine 5.5 (4.5-7.5)
[2019-01-17 12:05] LABS: Ketones Urine 3+ (Negative)
[2019-01-17 12:12] LABS: Mucus Urine Present (None Prsent); RBC Urine Automated 0-4 /hpf (0-4)
[2019-01-17 12:20] LABS: Albumin Level 4.2 gm/dl (3.4-5.0); BUN Creatinine Ratio 16.6 (10-20); Calcium 9.6 mg/dl (8.5-10.1); Creatinine Clr Calc Pharmacy 104.1 ml/min; Est GFR (African American) 134.2; Est GFR (Non-African American) 115.8; Potassium 3.8 mmol/L (3.5-5.1)
[2019-01-17 12:31] LABS: Albumin Globulin Ratio 1.1 (0.9-2); Bilirubin,Total 0.8 mg/dl (0.2-1); Globulin 3.8 gm/dl (2.5-4.0)
[2019-01-17 12:33] LABS: Amphetamines+Metham, Urine Pos (Neg); Barbiturates, Urine Neg (Neg); Benzodiazepine, Urine Neg (Neg); Cocaine, Urine Neg (Neg); MDMA (Ecstacy), Urine Neg (Neg); Methadone, Urine Neg (Neg); Opiate, Urine Neg (Neg); Phencyclidine, Urine Neg (Neg)
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
[2019-01-17] MEDS ORDERED: SODIUM CHLORIDE 0.65% NA SOLN 45 ML (OCEAN) PRN (19:48)
[2019-01-17] MEDS ORDERED: MAGNESIUM HYDROXIDE SUSP 30 ML UDC PO PRN (19:48)
[2019-01-17] MEDS ORDERED: ALUMINUM/MAGNESIUM SUSP 30 ML UDC PO PRN (19:48)
[2019-01-17] MEDS ORDERED: ACETAMINOPHEN 325 MG TAB PO PRN (19:48)
[2019-01-17] MEDS ORDERED: BISMUTH SUBSALICYLATE PER ML OMNICELL CHARGE PO PRN (19:48)
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
[2019-01-18] MEDS: NICOTINE 21 MG/24 HR TDSY TD SCH (10:56)
[2019-01-19 07:54] LABS: Amphetamine Urine, Confirm 4500 NG/ML (CUTOF=250); Marijuana Quant, GCMS Urine 234 NG/ML (CUTOFF=5)
--- NOTE | 2019-01-19 09:03 | Psychiatric Progress Note ---
Date of Service January 19, 2019 Impression / Recommendations Impression 23-year-old single female with a history of methamphetamine and cannabis abuse and bipolar disorder, who is admitted on a 302 involuntary commitment after sending numerous text messages with suicidal statements to multiple family members over the past couple of days. She is angry and unwilling to engage in treatment, drug screen is positive for methamphetamine and THC, and she sees no problem with her substance use. She initially denied meth use, stating that she had been taking Ritalin, but her confirmatory results reveal that she is indeed abusing meth. She is unwilling to get back into psychiatric treatment for her bipolar disorder, and is refusing to take psychotropic medications, preferring to use illicit stimulants and cannabis instead. Her mother is unwilling to be involved in a family meeting and will not allow the patient to return to live with her given her past behavior. He mandated CYS report was made today, as she is using illicit drugs, refusing mental health treatment, and states she has visitation with her children and plans to attempt to regain custody. She has given inconsistent reports and is not necessarily forthcoming with information. Given the clear and multiple statements of intent to end her life to multiple people, as well as her numerous stressors and severe depressive symptoms, she is at imminent risk for suicide if discharged. (1) Suicidal ideation: 01/18-patient hospitalized on a 302 involuntary commitment for suicidality. -Every 15 minute checks for safety -Encourage participation in groups, work on healthy coping skills and a discharge safety plan. -Family meeting with parents. 01/19 -Patient denying suicidal thoughts. Mother is refusing to participate in a family meeting. (2) Bipolar disorder: 01/18 -Patient minimizing -History of treatment with lithium. Patient refusing to consider any psychotropic medications, and refusing referral for outpatient psychiatric care. -Reported history of hypothyroidism, but not on medication currently and TSH on presentation was within the normal range. 01/19 -patient is reporting improved mood, and continues to deny medications to target mood instability. She is refusing outpatient psychiatric care. It is likely that some of her mood symptoms on admission were related to her methamphetamine abuse, and it is unclear whether she truly has an bipolar disorder. (3) Methamphetamine use: 01/18 -UDS positive for amphetamine/methamphetamine; follow-up on confirmatory results. Patient reports using Ritalin recently, giving inconsistent reports and initially claimed she was prescribed this medication, but per PDMP she has not been prescribed any controlled substances in the past year. -Reviewed risks of ongoing substance use and recommendations for abstinence. Patient lacks insight, does not see a problem with taking controlled substances that she is not prescribed, and does not desire to change her behavior. -Avoid prescription of controlled substances given the high risk of abuse/misuse/negative outcomes. -Coordinate care with her outpatient substance abuse treatment clinicians at [facility]. -Mandated CYS report re: ongoing substance use, refusal of treatment for mood disorder. 01/19 -confirmatory results show elevated methamphetamine levels (5080), which [facility] has not been forthcoming about. Recommend inpatient rehab, which she is refusing. -Mandated CYS report made today, and d/w rehabilitation caseworker Margoth who will visit patient in the hospital tomorrow. -Coordinate care with counselor at [facility] regarding patient's ongoing illicit drug use and refusal for recommended treatment. Recommend coordination with her PO as well. (4) Cannabis use disorder, moderate, dependence: 01/18 -long-standing substance abuse, leading to legal problems, loss of custody of her children, homelessness, and strained relationships. -As above. (5) Jsnhx-Jfcvirpkm-Pkjsk (WPW) syndrome: 01/18 -previously on nadolol; has not been in treatment for years. -Refer to PCP for outpatient follow-up. Inventory Assets Strengths: Employed Needs: Sobriety, treatment for mood symptoms Risk Factors Assessment Male: No : Yes Do You Have Access To A Gun?: No Health Problems: Yes Mental Health Diagnoses: Yes Substance Use Disorders: Yes Previous Attempt: No Family History of Suicide: No Previous Psychiatric Hospitalization: Yes Protective Factors Assessment Temple Beliefs: No : No Responsible for Young Children: No Employed: Yes Stable Relationships: No Supportive Family: No Good Rapport with Provider: No Interval History Identifying Information AMADOR TRIVEDI is a 23-year-old F who currently lives in [place], has a history of bipolar disorder, methamphetamine and cannabis abuse, and Sncud-Tnrqszvfk-Hjksi syndrome, and was admitted on 01/17/19 19:48 on a 302 involuntary commitment for suicidality after she sent text messages to her mother stating she was in the [place]encer with fentanyl and was going to kill herself. Chief Complaint "Just over the whole thing". Review of Systems Sleep Information Total Hours of Sleep: 5 Sleep Comments: Patient was up talking with her room mate until 0115. Meal Information Percent Meal Consumed - Breakfast: 75 Percent Meal Consumed - Lunch: 90 Percent Meal Consumed - Dinner: 90 Nutrition Comment: per meal record Subjective Subjective nursing staff and social work.Patient was seen & assessed and interval progress reviewed with nursing and social work. Staff reports she continues to deny suicidal ideation, maintaining that she threatened to kill herself to get her mother's attention. Although she stated willingness to have a meeting with her mother, her mother was unwilling to participate, but did provide collateral information. She said she was concerned about the patient's living arrangements, but will not allow the patient to live with them because of her behavior. She was hopeful the patient would agree to apply to [facility]. Amador has attended and participated in groups, talked about her children and said that she wanted to regain custody of them. Her confirmatory drug screen results were reviewed, and showed high level of methamphetamine (5080) and THC (234). On my assessment, she reports mood is improved and "I just want to go home." She states she "needs to be doing things for my kids," as she goes to court next month "for custody." She initially states that the court case is for her to regain custody, but later states that her parental rights are being terminated. She denies suicidal thoughts, and says that she is ready to go home. She continues to deny drug use, stating "I've just been smoking weed." When informed of her confirmatory drug results with high levels of methamphetamine, she initially continues to maintain that she did not use meth, then says that she smoked pot with some "guys at the motel," and says they must have put meth in the pot. She later states that she was "just under a lot of stress, and in those situations, drugs get put in my body." She was informed of the mandated CYS report and that her ostomy care nurse will be coming to meet with her tomorrow, and initially says she will "do whatever it takes" to get her children back, but when encouraged to go to inpatient rehab and get sober, she says she will "do anything to not go to rehab." She repeatedly asks to go home, says she will "promised to get daily drug tests, see my p.o. every day." She is willing to have a discussion with her counselor at [facility] and the psychiatric social worker supervisor by phone. Physical Exam Mental Examination Petite white female appearing stated age. Dressed in tight pants and T-shirt, with heavy makeup, tattoos on bilateral upper extremities. Seated in no acute distress, calm and cooperative, but not forthcoming with information regarding substance use. Eye contact is fair, increased psychomotor activity, fidgeting, shifting weight in chair, wringing hands. Speech is normal rate, volume, and tone, dramatic. Mood is initially "fine," but becomes extremely distraught and tearful when discussing CYS report. Thoughts are goal-directed, but irrational. Denies SI, HI, hallucinations, and paranoia. No delusions evident. Alert and oriented. Insight and judgment are poor. Vital Signs (Past 24 Hours) Last Vital Signs Temp 36.6 C 01/19/19 06:00 Pulse 78 01/19/19 06:00 Resp 16 01/19/19 06:00 BP 100/63 01/19/19 06:00 Pulse Ox 98 01/17/19 20:16 Results & Data Laboratory Results Laboratory Results - last 24 hr 01/17/19 11:50 U Amphetamines Confirm 4500 A U Methamphetamin Confrm 5080 A U Marijuana THC Carboxy 234 A Current Inpatient Medications Current Inpatient Medications: Current Inpatient Medications Acetaminophen (Tylenol) 650 mg PO Q4H PRN PRN Reason: Headache or Minor Fever Stop: 02/16/19 19:47 Al Hydrox/Mg Hydrox/Simethicone (Maalox) 30 ml PO Q4H PRN PRN Reason: GI Upset Stop: 02/16/19 19:47 Bismuth Subsalicylate (Kaopectate) 15 ml PO PRN PRN PRN Reason: Loose Stool Stop: 02/16/19 19:47 Hydroxyzine HCl (Vistaril) 50 mg PO HSZ PRN PRN Reason: Insomnia Stop: 02/16/19 19:47 Hydroxyzine HCl (Vistaril) 25 mg PO Q4H PRN PRN Reason: Anxiety Stop: 02/16/19 19:47 Magnesium Hydroxide (Milk Of Magnesia) 30 ml PO DAILY PRN PRN Reason: Heartburn Stop: 02/16/19 19:47 Nicotine (Nicoderm Cq) 21 mg TD QAM ROSALIO Stop: 02/17/19 08:59 Last Admin: 01/18/19 10:56 Dose: 21 mg Documented by: Sodium Chloride (Gregory Nasal) 1 - 2 sprays NA PRN PRN PRN Reason: Nasal Dryness/Congestion Stop: 02/16/19 19:47 Post Discharge Appointments Primary Care Physician Name Of Family Doctor: None, wants one in [place] Therapist Name of Therapist: Kvng Lewis CPT Code CPT Code 16116 (1) Bipolar disorder Active/Remission status: currently active Current bipolar episode type: depressed Current episode severity: severe Psychotic features: without psychotic features Qualified Code(s): F31.4 - Bipolar disorder, current episode depressed, severe, without psychotic features
[2019-01-19] MEDS: NICOTINE 21 MG/24 HR TDSY TD SCH (10:23)
[2019-01-19] MEDS ORDERED: IBUPROFEN 600 MG TAB PO PRN (10:59)
[2019-01-20] MEDS: NICOTINE 21 MG/24 HR TDSY TD SCH (09:48)
--- NOTE | 2019-01-20 10:22 | Discharge Summary ---
Date of Service January 20, 2019 History of Present Illness Per records, the patient presented to the ER with police on a 302 warrant, with a petition completed by her mother stating that the patient made multiple suicidal threats in the past week, and on 01/15/2019 told her mother she was in the spencer with fentanyl and was going to kill herself. She also sent text messages stating she was going to end her life to her father and mother's boyfriend within the past week. Copies of the text messages sent to her mother were provided, and include numerous clear statements such as "I'm going to kill myself," "I'm a piece of shit not [sic] one cares about me no one cares that I'm depressed," "I'm in the spencer exactly where I want to ," "I'll see rosi" (her grandmother). The patient admitted to sending the messages, but said she did it to get her mother to pay attention to her. She did not want psychiatric treatment. She reported smoking marijuana daily, which she stated she has a medical marijuana card for, and taking Ritalin, which is not prescribed to her. She brought in a jar of cannabis, and it could not be confirmed that she had a medical marijuana card. She was tearful in the ER, stating she did not want to be admitted as she had a visit scheduled with her children and has not seen them in a month, as they are in foster care. She was requesting to sign a 72-hour notice in the ER, but was admitted on a 302 involuntary commitment. She endorsed anhedonia, anergia, hypersomnia, depressed mood, irritability, and poor focus. She reported a 23 pound weight loss in the past 2 months despite an increased appetite. She stated her primary stressor is that she is unable to see her daughters, ages 2 and 4, she lost custody of them in 2017 due to substance abuse. She also reported stress related to her job at the [employer] and financial strain. She told staff she was prescribed both Ritalin and medical marijuana, but could not state who the doctor was that prescribed these things. She gives inconsistent reports about her amphetamine use, and drug screen was positive for amphetamine/methamphetamine and marijuana. She stated she has been noncompliant with Nadolol which she was previously prescribed for Tjfyl-Mquueyhvt-Shojq syndrome, and had not taken it in 2 years. 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 She says her mother "just hates me" and she doesn't know why, and wasn't responding to her attempts to contact her, so "said I was gonna kill myself." She denies that she was ever in the spencer with Fentanyl, and denies ever sending that text message. She denies sending messages to her father or mother's boyfriend, stating "the only person I texted was my mom." Mood has been "horrible" for "my whole life," because "I just want to spend time with her." She is angry that she is here, saying she wanted to go to [facility] because she gets to go outside, and "it's all about the money." She angrily complains about being hospitalized and says she doesn't want treatment, "I just want to go home with my family, have a relationship with my family." She is willing to have a meeting with her. She initially says she wants to get back into psychiatric treatment, then berates this facility and says she doesn't want any treatment, " I don't want to be on any meds at all, I'll flip out if they try to give me anything! They weaned me off my psych meds to get on marijuana." She claims she is on Ritalin prescribed when she was in rehab "forever ago," and cannot recall the physician who prescribed it. She can't recall when she last did methamphetamine. She says she has visitation with her kids once a month and is missing it today. Physical Exam Vital Signs (Past 24 Hours) Last Vital Signs Temp 36.7 C 01/20/19 06:53 Pulse 76 01/20/19 06:54 Resp 16 01/20/19 06:53 BP 107/65 01/20/19 06:54 Pulse Ox 98 01/17/19 20:16 Principal Diagnosis Bipolar disorder, depressed. Methamphetamine abuse Psychiatric Data Advance Directives Advance Directives Information Provided: Yes Advance Directives: No Mental Health Advance Directive: No Advance Directives on File: No Living Will: No Power of Apprentice/Lineman: No Advance Directives Reason:: Declines as Mental Health Visit. Risk Factors Assessment Male: No : Yes Do You Have Access To A Gun?: No Health Problems: Yes Mental Health Diagnoses: Yes Substance Use Disorders: Yes Previous Attempt: No Family History of Suicide: No Previous Psychiatric Hospitalization: Yes Protective Factors Assessment Holiness Beliefs: No : No Responsible for Young Children: No Employed: Yes Stable Relationships: No Supportive Family: No Good Rapport with Provider: No Discharge Data Consultations 01/17/19 20:21 ED Decision to Admit Stat Lab Results 01/17/19 01/17/19 01/17/19 11:49 11:49 11:49 WBC 6.62 RBC 4.81 Hgb 15.7 Hct 45.0 MCV 93.6 MCH 32.6 MCHC 34.9 RDW Std Deviation 43.5 RDW Coeff of Jose 12.6 Plt Count 227 MPV 9.5 Immature Gran % (Auto) 0.2 Neut % (Auto) 71.7 Lymph % (Auto) 23.9 [place] % (Auto) 3.6 Eos % (Auto) 0.3 Baso % (Auto) 0.3 Immature Gran # (Auto) 0.01 Neut # (Auto) 4.75 Lymph # (Auto) 1.58 [place] # (Auto) 0.24 Eos # (Auto) 0.02 Baso # (Auto) 0.02 Sodium 138 Potassium 3.8 Chloride 105 Carbon Dioxide 25 Anion Gap 8.0 BUN 12 Creatinine 0.74 Est Cr Clr Drug Dosing 104.1 Est GFR ( Amer) 134.2 Est GFR (Non-Af Amer) 115.8 BUN/Creatinine Ratio 16.6 Glucose 78 Calcium 9.6 Total Bilirubin 0.8 AST 15 ALT 20 Alkaline Phosphatase 67 Total Protein 8.0 Albumin 4.2 Globulin 3.8 Albumin/Globulin Ratio 1.1 TSH 0.498 Urine Color Urine Appearance Urine pH Ur Specific [place] Urine Protein Urine Glucose (UA) Urine Ketones Urine Blood Urine Nitrite Urine Bilirubin Urine Urobilinogen Ur Leukocyte Esterase Urine WBC (Auto) Urine RBC (Auto) U Hyaline Cast (Auto) U Epithel Cells (Auto) Urine Bacteria (Auto) Urine Mucus POC Ur Test Nasal Screen MRSA (PCR) Urine Opiates Screen Ur Methadone, Qual Urine Barbiturates Ur Phencyclidine (PCP) U Amphetamines Confirm U Amphetamin/Meth Scrn U Methamphetamin Confrm MDMA (Ecstasy) Screen U Benzodiazepines Scrn Ur Cocaine Metabolite U Marijuana (THC) Screen U Marijuana THC Carboxy Ethyl Alcohol mg/dL < 3.0 01/17/19 01/17/19 01/17/19 11:50 11:50 11:50 WBC RBC Hgb Hct MCV MCH MCHC RDW Std Deviation RDW Coeff of Jose Plt Count MPV Immature Gran % (Auto) Neut % (Auto) Lymph % (Auto) [place] % (Auto) Eos % (Auto) Baso % (Auto) Immature Gran # (Auto) Neut # (Auto) Lymph # (Auto) [place] # (Auto) Eos # (Auto) Baso # (Auto) Sodium Potassium Chloride Carbon Dioxide Anion Gap BUN Creatinine Est Cr Clr Drug Dosing Est GFR ( Amer) Est GFR (Non-Af Amer) BUN/Creatinine Ratio Glucose Calcium Total Bilirubin AST ALT Alkaline Phosphatase Total Protein Albumin Globulin Albumin/Globulin Ratio TSH Urine Color Dark Yellow Urine Appearance Cloudy H Urine pH 5.5 Ur Specific [place] 1.027 Urine Protein Negative Urine Glucose (UA) Negative Urine Ketones 3+ H Urine Blood Trace H Urine Nitrite Positive H Urine Bilirubin Negative Urine Urobilinogen Negative Ur Leukocyte Esterase Trace H Urine WBC (Auto) 5-10 H Urine RBC (Auto) 0-4 U Hyaline Cast (Auto) 5-10 H U Epithel Cells (Auto) >30 H Urine Bacteria (Auto) 3+ H Urine Mucus Present H POC Ur Test NEG Nasal Screen MRSA (PCR) Urine Opiates Screen Neg Ur Methadone, Qual Neg Urine Barbiturates Neg Ur Phencyclidine (PCP) Neg U Amphetamines Confirm U Amphetamin/Meth Scrn Pos H U Methamphetamin Confrm MDMA (Ecstasy) Screen Neg U Benzodiazepines Scrn Neg Ur Cocaine Metabolite Neg U Marijuana (THC) Screen Pos H U Marijuana THC Carboxy Ethyl Alcohol mg/dL 01/17/19 01/17/19 11:50 20:07 WBC RBC Hgb Hct MCV MCH MCHC RDW Std Deviation RDW Coeff of Jose Plt Count MPV Immature Gran % (Auto) Neut % (Auto) Lymph % (Auto) [place] % (Auto) Eos % (Auto) Baso % (Auto) Immature Gran # (Auto) Neut # (Auto) Lymph # (Auto) [place] # (Auto) Eos # (Auto) Baso # (Auto) Sodium Potassium Chloride Carbon Dioxide Anion Gap BUN Creatinine Est Cr Clr Drug Dosing Est GFR ( Amer) Est GFR (Non-Af Amer) BUN/Creatinine Ratio Glucose Calcium Total Bilirubin AST ALT Alkaline Phosphatase Total Protein Albumin Globulin Albumin/Globulin Ratio TSH Urine Color Urine Appearance Urine pH Ur Specific [place] Urine Protein Urine Glucose (UA) Urine Ketones Urine Blood Urine Nitrite Urine Bilirubin Urine Urobilinogen Ur Leukocyte Esterase Urine WBC (Auto) Urine RBC (Auto) U Hyaline Cast (Auto) U Epithel Cells (Auto) Urine Bacteria (Auto) Urine Mucus POC Ur Test Nasal Screen MRSA (PCR) Negative Urine Opiates Screen Ur Methadone, Qual Urine Barbiturates Ur Phencyclidine (PCP) U Amphetamines Confirm 4500 A U Amphetamin/Meth Scrn U Methamphetamin Confrm 5080 A MDMA (Ecstasy) Screen U Benzodiazepines Scrn Ur Cocaine Metabolite U Marijuana (THC) Screen U Marijuana THC Carboxy 234 A Ethyl Alcohol mg/dL Hospital Course (1) Suicidal ideation: 01/18-patient hospitalized on a 302 involuntary commitment for suicidality. -Every 15 minute checks for safety -Encourage participation in groups, work on healthy coping skills and a discharge safety plan. -Family meeting with parents. 01/19 -Patient denying suicidal thoughts. Mother is refusing to participate in a family meeting. (2) Bipolar disorder: 01/18 -Patient minimizing -History of treatment with lithium. Patient refusing to consider any psychotropic medications, and refusing referral for outpatient psychiatric care. -Reported history of hypothyroidism, but not on medication currently and TSH on presentation was within the normal range. 01/19 -patient is reporting improved mood, and continues to deny medications to target mood instability. She is refusing outpatient psychiatric care. It is likely that some of her mood symptoms on admission were related to her methamphetamine abuse, and it is unclear whether she truly has an bipolar disorder. (3) Methamphetamine use: 01/18 -UDS positive for amphetamine/methamphetamine; follow-up on confirmatory results. Patient reports using Ritalin recently, giving inconsistent reports and initially claimed she was prescribed this medication, but per PDMP she has not been prescribed any controlled substances in the past year. -Reviewed risks of ongoing substance use and recommendations for abstinence. Patient lacks insight, does not see a problem with taking controlled substances that she is not prescribed, and does not desire to change her behavior. -Avoid prescription of controlled substances given the high risk of abuse/misuse/negative outcomes. -Coordinate care with her outpatient substance abuse treatment clinicians at [facility]. -Mandated CYS report re: ongoing substance use, refusal of treatment for mood disorder. 01/19 -confirmatory results show elevated methamphetamine levels (5080), which patient has not been forthcoming about. Recommend inpatient rehab, which she is refusing. -Mandated CYS report made today, and d/w cyanide case hardener Margoth who will visit patient in the hospital tomorrow. -Coordinate care with counselor at [facility] regarding patient's ongoing illicit drug use and refusal for recommended treatment. Recommend coordination with her PO as well. (4) Cannabis use disorder, moderate, dependence: 01/18 -long-standing substance abuse, leading to legal problems, loss of custody of her children, homelessness, and strained relationships. -As above. 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 -Refer to PCP for outpatient follow-up. Post Discharge Appointments Primary Care Physician Name Of Family Doctor: None, wants one in [place] Psychiatrist Name of Psychiatrist: [facility] Comment: [phone], [place] [address] Therapist Name of Therapist: Kvng Lewis Therapist's Date of Therapist Appointment: 01/24/19 Time of Therapist Appointment: 1:00 p.m. Therapy Appointment Comment: Add in groups from 5 - 7 p.m. Discharge Plan Discharge Items Patient Disposition: Home - Self-Care Reason For Visit: BIPOLAR DISORDER,DEPRESSED Discharge Diagnosis: bipolar disorder, substance abuse Discharge Goals: Decrease discomfort, Improve disease control and Learn about illness Activity: Resume your previous activity Non-emergency contact: Primary Care Provider and Therapist Call non-emergency contact if: you have any medication questions and your symptoms worsen Follow-up/Referrals: PCP,NO [Primary Care Provider] - Diet: Regular Addtl Provider Instructions: SPECIAL CARE INSTRUCTIONS: 1. Follow through with your scheduled aftercare appointments. If unable to keep an appointment, please call to reschedule. 2. Take your medication only as prescribed. Medication should not be changed or stopped without the approval of your doctor. In the event of worsening symptoms or concerns about side effects, contact your doctor immediately. 3. Utilize new healthy coping skills, anger management skills, and stress management skills learned during your hospitalization. Journal feelings and process them with a support person. Identify stressors or situations that may result in relapse, deterioration or inappropriate behaviors and develop a plan to deal with those issues. 4. If your coping skills are ineffective and you are in crisis, contact your outpatient providers for direction. If unable to reach your providers, please call the CAN HELP LINE AT or go to the closest Emergency Room. 5. Avoid alcohol and un-prescribed drugs. 6. You have been provided with the Mental Health Advance Directives Pamphlet for your review. AFTERCARE APPOINTMENTS: * Please call your insurance company prior to your scheduled appointment to confirm your aftercare providers are covered. Take your insurance information to your appointments. WHO TO CALL AND WHEN: Medical Emergencies: For questions or emergencies related to your hospital stay, please contact the Inpatient Behavioral Health Unit at [phone]. A assessment clinician is on-call 19/04 for the Behavioral Health Unit for emergencies At any time you feel your situation is an emergency, you may also call 911 immediately. Your Doctors Instructions noted above were prepared by provider YAIR Galindo. Prescriptions: No Action No Known Home Medications RF: 0 Stand-Alone Forms: [facility] Discharge Orders: Discharge Order (Routine); Ordered 01/20/19 Ordered By: Suzan Villavicencio Admission Data Admit Date/Time: 01/17/19 19:48 Attending Provider: Velma Sin Admit Provider: Pedro Chapin Primary Care Provider: PCP,NO Other Providers: Pedro Chapin Service: Psychiatry Other Interventions: PSY Interdisciplinary Discharge Planning Last Done: 01/20/19 09:11 Pending Studies at Discharge: No
--- NOTE | 2019-01-20 10:39 | Discharge Summary ---
Date of Service January 20, 2019 History of Present Illness Per records, the patient presented to the ER with police on a 302 warrant, with a petition completed by her mother stating that the patient made multiple suicidal threats in the past week, and on 01/15/2019 told her mother she was in the [place] with fentanyl and was going to kill herself. She also sent text messages stating she was going to end her life to her father and mother's boyfriend within the past week. Copies of the text messages sent to her mother were provided, and include numerous clear statements such as "I'm going to kill myself," "I'm a piece of shit not [sic] one cares about me no one cares that I'm depressed," "I'm in the spencer exactly where I want to ," "I'll see rosi" (her grandmother). The patient admitted to sending the messages, but said she did it to get her mother to pay attention to her. She did not want psychiatric treatment. She reported smoking marijuana daily, which she stated she has a medical marijuana card for, and taking Ritalin, which is not prescribed to her. She brought in a jar of cannabis, and it could not be confirmed that she had a medical marijuana card. She was tearful in the ER, stating she did not want to be admitted as she had a visit scheduled with her children and has not seen them in a month, as they are in foster care. She was requesting to sign a 72-hour notice in the ER, but was admitted on a 302 involuntary commitment. She endorsed anhedonia, anergia, hypersomnia, depressed mood, irritability, and poor focus. She reported a 23 pound weight loss in the past 2 months despite an increased appetite. She stated her primary stressor is that she is unable to see her daughters, ages 2 and 4, she lost custody of them in 2017 due to substance abuse. She also reported stress related to her job at the [employer] and financial strain. She told staff she was prescribed both Ritalin and medical marijuana, but could not state who the doctor was that prescribed these things. She gives inconsistent reports about her amphetamine use, and drug screen was positive for amphetamine/methamphetamine and marijuana. She stated she has been noncompliant with Nadolol which she was previously prescribed for Jpcfj-Dreeilwdm-Elghz syndrome, and had not taken it in 2 years. 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 She says her mother "just hates me" and she doesn't know why, and wasn't responding to her attempts to contact her, so "said I was gonna kill myself." She denies that she was ever in the spencer with Fentanyl, and denies ever sending that text message. She denies sending messages to her father or mother's boyfriend, stating "the only person I texted was my mom." Mood has been "horrible" for "my whole life," because "I just want to spend time with her." She is angry that she is here, saying she wanted to go to [place] because she gets to go outside, and "it's all about the money." She angrily complains about being hospitalized and says she doesn't want treatment, "I just want to go home with my family, have a relationship with my family." She is willing to have a meeting with her. She initially says she wants to get back into psychiatric treatment, then berates this facility and says she doesn't want any treatment, " I don't want to be on any meds at all, I'll flip out if they try to give me anything! They weaned me off my psych meds to get on marijuana." She claims she is on Ritalin prescribed when she was in rehab "forever ago," and cannot recall the physician who prescribed it. She can't recall when she last did methamphetamine. She says she has visitation with her kids once a month and is missing it today. Physical Exam Psychiatric Orientation: alert, oriented x 3 and cooperative Apperance: appropriately dressed and appropriately groomed Eye Contact: good eye contact Motor Behavior: steady gait and station and no abnormal motor movements Speech: normal rate/rhythm/volume of speech Affect: euthymic affect Thought Process: goal directed thought process Thought Content: reality based without delusions Suicidal Thoughts: denies suicidal thoughts Homicidal Thoughts: denies homicidal thoughts Hallucinations: no auditory hallucinations and no visual hallucinations Cognition: recent memory grossly intact, remote memory grossly intact, attention grossly intact and language grossly intact Estimated Intelligence: consistent with education level Insight: + limited insight Judgement: + limited judgement Vital Signs (Past 24 Hours) Last Vital Signs Temp 36.7 C 01/20/19 06:53 Pulse 76 01/20/19 06:54 Resp 16 01/20/19 06:53 BP 107/65 01/20/19 06:54 Pulse Ox 98 01/17/19 20:16 Principal Diagnosis Bipolar disorder, depressed. Methamphetamine abuse Psychiatric Data The patient has been on her unit for 3 days. She was initially admitted involuntarily with symptoms of depression including having reported that she had texted her mother suicidal messages and had gone [facility] with f[facility] with the intent overdose. For complete admission information I refer you to the attached history and physical. During her stay, she refused to consider any medications for her previously diagnosed bipolar disorder. She says that she takes medical marijuana and wants to take an "all natural" approach to treating her illness. She did use at least one dose of PRN Vistaril during her stay which only sedated her and solidified her thoughts that she does not want to take medications. She seems to have suicidal thoughts during her stay. There was a children and youth services report made in deference to the fact that she had been abusing methamphetamines and said she had parental visit rights with her children upcoming. CYS reported that there is a hearing on January 31 to terminate her parental rights. The patient has arranged to live with a friend, Debby, upon discharge who will assist her in getting to her appointments. The patient demonstrated very little insight into her circumstances or her illness during her stay but was no longer suicidal. We recommended rehab for her ongoing substance use which she refused but has agreed to return to [place] and increase the frequency of her treatment. She agreed to start attending groups in the evening from 5-7 and increase her contacts to 4 times per week. She insists on continuing with medical marijuana as her treatment of choice. Risk factors were mediated through the use of safety planning, group and individual counseling, meeting with providers daily, recovery protocol, collaborating with CYS and her outpatient providers. Day of Discharge Assessment Today the patient is requesting discharge. She is considered to be improved over admission. She denies suicidal ideation or homicidal ideation. She denies auditory or visual hallucinations. She denies symptoms of nery. She feels prepared to go home, has a friend Debby who will pick her up this afternoon at 2:00 or after. She continues to state a willingness to engage in substance use treatment which will be provided through [facility]. She continues to refuse rehab. Today the patient is casually and appropriately dressed and groomed. Gait and station are within normal limits. Eye contact is good. Affect is euthymic. Speech is of normal rate volume and tone. Thoughts are organized, goal-directed, and without evidence of thought disorder. Recent and remote memory are intact per conversation. Intelligence is consistent with her level of education. Insight and judgment are improved over admission. Transition of Care Transition Of Care Record: was reviewed with the patient Advance Directives Advance Directives Information Provided: Yes Advance Directives: No Mental Health Advance Directive: No Advance Directives on File: No Living Will: No Power of Muck Farmer: No Advance Directives Reason:: Declines as Mental Health Visit. Risk Factors Assessment Male: No : Yes Do You Have Access To A Gun?: No Health Problems: Yes Mental Health Diagnoses: Yes Substance Use Disorders: Yes Previous Attempt: No Family History of Suicide: No Previous Psychiatric Hospitalization: Yes Protective Factors Assessment Mu-Ism Beliefs: No : No Responsible for Young Children: No Employed: Yes Stable Relationships: No Supportive Family: No Good Rapport with Provider: No Tobacco Cessation at Discharge Tobacco Cessation Medication Prescribed at Discharge: Offered & Pt Refused Total Time Total Time Spent: Greater Than 30 Minutes Total Time Includes: Examination of the patient, Discharge Planning, Medication Reconciliation and Communication with other providers Discharge Data Consultations 01/17/19 20:21 ED Decision to Admit Stat Lab Results 01/17/19 01/17/19 01/17/19 11:49 11:49 11:49 WBC 6.62 RBC 4.81 Hgb 15.7 Hct 45.0 MCV 93.6 MCH 32.6 MCHC 34.9 RDW Std Deviation 43.5 RDW Coeff of Jose 12.6 Plt Count 227 MPV 9.5 Immature Gran % (Auto) 0.2 Neut % (Auto) 71.7 Lymph % (Auto) 23.9 Cochran % (Auto) 3.6 Eos % (Auto) 0.3 Baso % (Auto) 0.3 Immature Gran # (Auto) 0.01 Neut # (Auto) 4.75 Lymph # (Auto) 1.58 Cochran # (Auto) 0.24 Eos # (Auto) 0.02 Baso # (Auto) 0.02 Sodium 138 Potassium 3.8 Chloride 105 Carbon Dioxide 25 Anion Gap 8.0 BUN 12 Creatinine 0.74 Est Cr Clr Drug Dosing 104.1 Est GFR ( Amer) 134.2 Est GFR (Non-Af Amer) 115.8 BUN/Creatinine Ratio 16.6 Glucose 78 Calcium 9.6 Total Bilirubin 0.8 AST 15 ALT 20 Alkaline Phosphatase 67 Total Protein 8.0 Albumin 4.2 Globulin 3.8 Albumin/Globulin Ratio 1.1 TSH 0.498 Urine Color Urine Appearance Urine pH Ur Specific [place] Urine Protein Urine Glucose (UA) Urine Ketones Urine Blood Urine Nitrite Urine Bilirubin Urine Urobilinogen Ur Leukocyte Esterase Urine WBC (Auto) Urine RBC (Auto) U Hyaline Cast (Auto) U Epithel Cells (Auto) Urine Bacteria (Auto) Urine Mucus POC Ur Test Nasal Screen MRSA (PCR) Urine Opiates Screen Ur Methadone, Qual Urine Barbiturates Ur Phencyclidine (PCP) U Amphetamines Confirm U Amphetamin/Meth Scrn U Methamphetamin Confrm MDMA (Ecstasy) Screen U Benzodiazepines Scrn Ur Cocaine Metabolite U Marijuana (THC) Screen U Marijuana THC Carboxy Ethyl Alcohol mg/dL < 3.0 01/17/19 01/17/19 01/17/19 11:50 11:50 11:50 WBC RBC Hgb Hct MCV MCH MCHC RDW Std Deviation RDW Coeff of Jose Plt Count MPV Immature Gran % (Auto) Neut % (Auto) Lymph % (Auto) Cochran % (Auto) Eos % (Auto) Baso % (Auto) Immature Gran # (Auto) Neut # (Auto) Lymph # (Auto) Cochran # (Auto) Eos # (Auto) Baso # (Auto) Sodium Potassium Chloride Carbon Dioxide Anion Gap BUN Creatinine Est Cr Clr Drug Dosing Est GFR ( Amer) Est GFR (Non-Af Amer) BUN/Creatinine Ratio Glucose Calcium Total Bilirubin AST ALT Alkaline Phosphatase Total Protein Albumin Globulin Albumin/Globulin Ratio TSH Urine Color Dark Yellow Urine Appearance Cloudy H Urine pH 5.5 Ur Specific [place] 1.027 Urine Protein Negative Urine Glucose (UA) Negative Urine Ketones 3+ H Urine Blood Trace H Urine Nitrite Positive H Urine Bilirubin Negative Urine Urobilinogen Negative Ur Leukocyte Esterase Trace H Urine WBC (Auto) 5-10 H Urine RBC (Auto) 0-4 U Hyaline Cast (Auto) 5-10 H U Epithel Cells (Auto) >30 H Urine Bacteria (Auto) 3+ H Urine Mucus Present H POC Ur Test NEG Nasal Screen MRSA (PCR) Urine Opiates Screen Neg Ur Methadone, Qual Neg Urine Barbiturates Neg Ur Phencyclidine (PCP) Neg U Amphetamines Confirm U Amphetamin/Meth Scrn Pos H U Methamphetamin Confrm MDMA (Ecstasy) Screen Neg U Benzodiazepines Scrn Neg Ur Cocaine Metabolite Neg U Marijuana (THC) Screen Pos H U Marijuana THC Carboxy Ethyl Alcohol mg/dL 01/17/19 01/17/19 11:50 20:07 WBC RBC Hgb Hct MCV MCH MCHC RDW Std Deviation RDW Coeff of Jose Plt Count MPV Immature Gran % (Auto) Neut % (Auto) Lymph % (Auto) Cochran % (Auto) Eos % (Auto) Baso % (Auto) Immature Gran # (Auto) Neut # (Auto) Lymph # (Auto) Cochran # (Auto) Eos # (Auto) Baso # (Auto) Sodium Potassium Chloride Carbon Dioxide Anion Gap BUN Creatinine Est Cr Clr Drug Dosing Est GFR ( Amer) Est GFR (Non-Af Amer) BUN/Creatinine Ratio Glucose Calcium Total Bilirubin AST ALT Alkaline Phosphatase Total Protein Albumin Globulin Albumin/Globulin Ratio TSH Urine Color Urine Appearance Urine pH Ur Specific [place] Urine Protein Urine Glucose (UA) Urine Ketones Urine Blood Urine Nitrite Urine Bilirubin Urine Urobilinogen Ur Leukocyte Esterase Urine WBC (Auto) Urine RBC (Auto) U Hyaline Cast (Auto) U Epithel Cells (Auto) Urine Bacteria (Auto) Urine Mucus POC Ur Test Nasal Screen MRSA (PCR) Negative Urine Opiates Screen Ur Methadone, Qual Urine Barbiturates Ur Phencyclidine (PCP) U Amphetamines Confirm 4500 A U Amphetamin/Meth Scrn U Methamphetamin Confrm 5080 A MDMA (Ecstasy) Screen U Benzodiazepines Scrn Ur Cocaine Metabolite U Marijuana (THC) Screen U Marijuana THC Carboxy 234 A Ethyl Alcohol mg/dL Hospital Course (1) Suicidal ideation: 01/18-patient hospitalized on a 302 involuntary commitment for suicidality. -Every 15 minute checks for safety -Encourage participation in groups, work on healthy coping skills and a discharge safety plan. -Family meeting with parents. 01/19 -Patient denying suicidal thoughts. Mother is refusing to participate in a family meeting. (2) Bipolar disorder: 01/18 -Patient minimizing -History of treatment with lithium. Patient refusing to consider any psy chotropic medications, and refusing referral for outpatient psychiatric care. -Reported history of hypothyroidism, but not on medication currently and TSH on presentation was within the normal range. 01/19 -patient is reporting improved mood, and continues to deny medications to target mood instability. She is refusing outpatient psychiatric care. It is likely that some of her mood symptoms on admission were related to her methamphetamine abuse, and it is unclear whether she truly has an bipolar disorder. (3) Methamphetamine use: 01/18 -UDS positive for amphetamine/methamphetamine; follow-up on confirmatory results. Patient reports using Ritalin recently, giving inconsistent reports and initially claimed she was prescribed this medication, but per PDMP she has not been prescribed any controlled substances in the past year. -Reviewed risks of ongoing substance use and recommendations for abstinence. Patient lacks insight, does not see a problem with taking controlled substances that she is not prescribed, and does not desire to change her behavior. -Avoid prescription of controlled substances given the high risk of abuse/misuse/negative outcomes. -Coordinate care with her outpatient substance abuse treatment clinicians at [place]. -Mandated CYS report re: ongoing substance use, refusal of treatment for mood disorder. 01/19 -confirmatory results show elevated methamphetamine levels (5080), which patient has not been forthcoming about. Recommend inpatient rehab, which she is refusing. -Mandated CYS report made today, and d/w therapeutic case manager Margoth who will visit patient in the hospital tomorrow. -Coordinate care with counselor at [place] regarding patient's ongoing illicit drug use and refusal for recommended treatment. Recommend coordination with her PO as well. (4) Cannabis use disorder, moderate, dependence: 01/18 -long-standing substance abuse, leading to legal problems, loss of custody of her children, homelessness, and strained relationships. -As above. 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 -Refer to PCP for outpatient follow-up. Post Discharge Appointments Primary Care Physician Name Of Family Doctor: None, wants one in [place] Psychiatrist Name of Psychiatrist: [facility] Comment: [phone], [place] [address] Therapist Name of Therapist: Kvng Lewis Therapist's Date of Therapist Appointment: 01/24/19 Time of Therapist Appointment: 1:00 p.m. Therapy Appointment Comment: Add in groups from 5 - 7 p.m. Smoking Cessation Counseling Tobacco Cessation Medication Prescribed at Discharge: Offered & Pt Refused
--- NOTE | 2019-01-20 11:54 | Discharge Summary ---
Date of Service January 20, 2019 History of Present Illness Per records, the patient presented to the ER with police on a 302 warrant, with a petition completed by her mother stating that the patient made multiple suicidal threats in the past week, and on 01/15/2019 told her mother she was in the spencer with fentanyl and was going to kill herself. She also sent text messages stating she was going to end her life to her father and mother's boyfriend within the past week. Copies of the text messages sent to her mother were provided, and include numerous clear statements such as "I'm going to kill myself," "I'm a piece of shit not [sic] one cares about me no one cares that I'm depressed," "I'm in the spencer exactly where I want to ," "I'll see rosi" (her grandmother). The patient admitted to sending the messages, but said she did it to get her mother to pay attention to her. She did not want psychiatric treatment. She reported smoking marijuana daily, which she stated she has a medical marijuana card for, and taking Ritalin, which is not prescribed to her. She brought in a jar of cannabis, and it could not be confirmed that she had a medical marijuana card. She was tearful in the ER, stating she did not want to be admitted as she had a visit scheduled with her children and has not seen them in a month, as they are in foster care. She was requesting to sign a 72-hour notice in the ER, but was admitted on a 302 involuntary commitment. She endorsed anhedonia, anergia, hypersomnia, depressed mood, irritability, and poor focus. She reported a 23 pound weight loss in the past 2 months despite an increased appetite. She stated her primary stressor is that she is unable to see her daughters, ages 2 and 4, she lost custody of them in 2017 due to substance abuse. She also reported stress related to her job at the [employer] and financial strain. She told staff she was prescribed both Ritalin and medical marijuana, but could not state who the doctor was that prescribed these things. She gives inconsistent reports about her amphetamine use, and drug screen was positive for amphetamine/methamphetamine and marijuana. She stated she has been noncompliant with Nadolol which she was previously prescribed for Nlkvf-Rsrrpaunu-Honiy syndrome, and had not taken it in 2 years. 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 She says her mother "just hates me" and she doesn't know why, and wasn't responding to her attempts to contact her, so "said I was gonna kill myself." She denies that she was ever in the spencer with Fentanyl, and denies ever sending that text message. She denies sending messages to her father or mother's boyfriend, stating "the only person I texted was my mom." Mood has been "horrible" for "my whole life," because "I just want to spend time with her." She is angry that she is here, saying she wanted to go to [place] because she gets to go outside, and "it's all about the money." She angrily complains about being hospitalized and says she doesn't want treatment, "I just want to go home with my family, have a relationship with my family." She is willing to have a meeting with her. She initially says she wants to get back into psychiatric treatment, then berates this facility and says she doesn't want any treatment, " I don't want to be on any meds at all, I'll flip out if they try to give me anything! They weaned me off my psych meds to get on marijuana." She claims she is on Ritalin prescribed when she was in rehab "forever ago," and cannot recall the physician who prescribed it. She can't recall when she last did methamphetamine. She says she has visitation with her kids once a month and is missing it today. Physical Exam Vital Signs (Past 24 Hours) Last Vital Signs Temp 36.7 C 01/20/19 11:26 Pulse 76 01/20/19 11:26 Resp 16 01/20/19 11:26 BP 107/65 01/20/19 11:26 Pulse Ox 98 01/20/19 11:26 Psychiatric Data Advance Directives Advance Directives Information Provided: Yes Advance Directives: No Mental Health Advance Directive: No Advance Directives on File: No Living Will: No Power of Freight And Passenger Agent: No Advance Directives Reason:: Declines as Mental Health Visit. Risk Factors Assessment Male: No : Yes Do You Have Access To A Gun?: No Health Problems: Yes Mental Health Diagnoses: Yes Substance Use Disorders: Yes Previous Attempt: No Family History of Suicide: No Previous Psychiatric Hospitalization: Yes Protective Factors Assessment Hoahaoism Beliefs: No : No Responsible for Young Children: No Employed: Yes Stable Relationships: No Supportive Family: No Good Rapport with Provider: No Tobacco Cessation at Discharge Tobacco Cessation Medication Prescribed at Discharge: Offered & Pt Refused Discharge Data Consultations 01/17/19 20:21 ED Decision to Admit Stat Lab Results 01/17/19 01/17/19 01/17/19 11:49 11:49 11:49 WBC 6.62 RBC 4.81 Hgb 15.7 Hct 45.0 MCV 93.6 MCH 32.6 MCHC 34.9 RDW Std Deviation 43.5 RDW Coeff of Jose 12.6 Plt Count 227 MPV 9.5 Immature Gran % (Auto) 0.2 Neut % (Auto) 71.7 Lymph % (Auto) 23.9 [place] % (Auto) 3.6 Eos % (Auto) 0.3 Baso % (Auto) 0.3 Immature Gran # (Auto) 0.01 Neut # (Auto) 4.75 Lymph # (Auto) 1.58 [place] # (Auto) 0.24 Eos # (Auto) 0.02 Baso # (Auto) 0.02 Sodium 138 Potassium 3.8 Chloride 105 Carbon Dioxide 25 Anion Gap 8.0 BUN 12 Creatinine 0.74 Est Cr Clr Drug Dosing 104.1 Est GFR ( Amer) 134.2 Est GFR (Non-Af Amer) 115.8 BUN/Creatinine Ratio 16.6 Glucose 78 Calcium 9.6 Total Bilirubin 0.8 AST 15 ALT 20 Alkaline Phosphatase 67 Total Protein 8.0 Albumin 4.2 Globulin 3.8 Albumin/Globulin Ratio 1.1 TSH 0.498 Urine Color Urine Appearance Urine pH Ur Specific Pollock Urine Protein Urine Glucose (UA) Urine Ketones Urine Blood Urine Nitrite Urine Bilirubin Urine Urobilinogen Ur Leukocyte Esterase Urine WBC (Auto) Urine RBC (Auto) U Hyaline Cast (Auto) U Epithel Cells (Auto) Urine Bacteria (Auto) Urine Mucus POC Ur Test Nasal Screen MRSA (PCR) Urine Opiates Screen Ur Methadone, Qual Urine Barbiturates Ur Phencyclidine (PCP) U Amphetamines Confirm U Amphetamin/Meth Scrn U Methamphetamin Confrm MDMA (Ecstasy) Screen U Benzodiazepines Scrn Ur Cocaine Metabolite U Marijuana (THC) Screen U Marijuana THC Carboxy Ethyl Alcohol mg/dL < 3.0 01/17/19 01/17/19 01/17/19 11:50 11:50 11:50 WBC RBC Hgb Hct MCV MCH MCHC RDW Std Deviation RDW Coeff of Jose Plt Count MPV Immature Gran % (Auto) Neut % (Auto) Lymph % (Auto) [place] % (Auto) Eos % (Auto) Baso % (Auto) Immature Gran # (Auto) Neut # (Auto) Lymph # (Auto) [place] # (Auto) Eos # (Auto) Baso # (Auto) Sodium Potassium Chloride Carbon Dioxide Anion Gap BUN Creatinine Est Cr Clr Drug Dosing Est GFR ( Amer) Est GFR (Non-Af Amer) BUN/Creatinine Ratio Glucose Calcium Total Bilirubin AST ALT Alkaline Phosphatase Total Protein Albumin Globulin Albumin/Globulin Ratio TSH Urine Color Dark Yellow Urine Appearance Cloudy H Urine pH 5.5 Ur Specific Pollock 1.027 Urine Protein Negative Urine Glucose (UA) Negative Urine Ketones 3+ H Urine Blood Trace H Urine Nitrite Positive H Urine Bilirubin Negative Urine Urobilinogen Negative Ur Leukocyte Esterase Trace H Urine WBC (Auto) 5-10 H Urine RBC (Auto) 0-4 U Hyaline Cast (Auto) 5-10 H U Epithel Cells (Auto) >30 H Urine Bacteria (Auto) 3+ H Urine Mucus Present H POC Ur Test NEG Nasal Screen MRSA (PCR) Urine Opiates Screen Neg Ur Methadone, Qual Neg Urine Barbiturates Neg Ur Phencyclidine (PCP) Neg U Amphetamines Confirm U Amphetamin/Meth Scrn Pos H U Methamphetamin Confrm MDMA (Ecstasy) Screen Neg U Benzodiazepines Scrn Neg Ur Cocaine Metabolite Neg U Marijuana (THC) Screen Pos H U Marijuana THC Carboxy Ethyl Alcohol mg/dL 01/17/19 01/17/19 11:50 20:07 WBC RBC Hgb Hct MCV MCH MCHC RDW Std Deviation RDW Coeff of Jose Plt Count MPV Immature Gran % (Auto) Neut % (Auto) Lymph % (Auto) [place] % (Auto) Eos % (Auto) Baso % (Auto) Immature Gran # (Auto) Neut # (Auto) Lymph # (Auto) [place] # (Auto) Eos # (Auto) Baso # (Auto) Sodium Potassium Chloride Carbon Dioxide Anion Gap BUN Creatinine Est Cr Clr Drug Dosing Est GFR ( Amer) Est GFR (Non-Af Amer) BUN/Creatinine Ratio Glucose Calcium Total Bilirubin AST ALT Alkaline Phosphatase Total Protein Albumin Globulin Albumin/Globulin Ratio TSH Urine Color Urine Appearance Urine pH Ur Specific Pollock Urine Protein Urine Glucose (UA) Urine Ketones Urine Blood Urine Nitrite Urine Bilirubin Urine Urobilinogen Ur Leukocyte Esterase Urine WBC (Auto) Urine RBC (Auto) U Hyaline Cast (Auto) U Epithel Cells (Auto) Urine Bacteria (Auto) Urine Mucus POC Ur Test Nasal Screen MRSA (PCR) Negative Urine Opiates Screen Ur Methadone, Qual Urine Barbiturates Ur Phencyclidine (PCP) U Amphetamines Confirm 4500 A U Amphetamin/Meth Scrn U Methamphetamin Confrm 5080 A MDMA (Ecstasy) Screen U Benzodiazepines Scrn Ur Cocaine Metabolite U Marijuana (THC) Screen U Marijuana THC Carboxy 234 A Ethyl Alcohol mg/dL Hospital Course (1) Suicidal ideation: 01/18-patient hospitalized on a 302 involuntary commitment for suicidality. -Every 15 minute checks for safety -Encourage participation in groups, work on healthy coping skills and a discharge safety plan. -Family meeting with parents. 01/19 -Patient denying suicidal thoughts. Mother is refusing to participate in a family meeting. (2) Bipolar disorder: 01/18 -Patient minimizing -History of treatment with lithium. Patient refusing to consider any psychotropic medications, and refusing referral for outpatient psychiatric care. -Reported history of hypothyroidism, but not on medication currently and TSH on presentation was within the normal range. 01/19 -patient is reporting improved mood, and continues to deny medications to target mood instability. She is refusing outpatient psychiatric care. It is likely that some of her mood symptoms on admission were related to her methamphetamine abuse, and it is unclear whether she truly has an bipolar disorder. (3) Methamphetamine use: 01/18 -UDS positive for amphetamine/methamphetamine; follow-up on confirmatory results. Patient reports using Ritalin recently, giving inconsistent reports and initially claimed she was prescribed this medication, but per PDMP she has not been prescribed any controlled substances in the past year. -Reviewed risks of ongoing substance use and recommendations for abstinence. Patient lacks insight, does not see a problem with taking controlled substances that she is not prescribed, and does not desire to change her behavior. -Avoid prescription of controlled substances given the high risk of abuse/misuse/negative outcomes. -Coordinate care with her outpatient substance abuse treatment clinicians at [facility]. -Mandated CYS report re: ongoing substance use, refusal of treatment for mood disorder. 01/19 -confirmatory results show elevated methamphetamine levels (5080), which patient has not been forthcoming about. Recommend inpatient rehab, which she is refusing. -Mandated CYS report made today, and d/w top case assembler Margoth who will visit patient in the hospital tomorrow. -Coordinate care with counselor at [facility] regarding patient's ongoing illicit drug use and refusal for recommended treatment. Recommend coordination with her PO as well. (4) Cannabis use disorder, moderate, dependence: 01/18 -long-standing substance abuse, leading to legal problems, loss of custody of her children, homelessness, and strained relationships. -As above. 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 -Refer to PCP for outpatient follow-up. Post Discharge Appointments Primary Care Physician Name Of Family Doctor: None, wants one in [place] Primary Care Date of Appointment with PCP: 01/26/19 Time of Appointment with PCP: 8:50 a.m. Provider Appointment Comment: [address], [address], [place] [address] Primary Care Release of Information: Obtained, Reviewed and Signed Psychiatrist Name of Psychiatrist: [facility] Comment: [address], [place] [address] Therapist Name of Therapist: Kvng Munoz - Simin/Lali Therapist's Date of Therapist Appointment: 01/24/19 Time of Therapist Appointment: 1:00 p.m. Therapy Appointment Comment: Add in groups from 5 - 7 p.m. Therapist Release of Information: Obtained, Reviewed and Signed Property Management Bookkeeper Name of Property Management Bookkeeper: [employer] Phone Number for Property Management Bookkeeper: [phone] Time of Appointment with Property Management Bookkeeper: Will call to schedule your intake Case Management Appointment Comment: [facility] [facility] [facility] [address], [address], [place], [place] Property Management Bookkeeper Release of Information: Obtained, Reviewed and Signed Smoking Cessation Counseling Tobacco Cessation Medication Prescribed at Discharge: Offered & Pt Refused Contact Information Discharge Discharge Address: [address] [place] [address], [place] [address] Discharge Plan Discharge Items Patient Disposition: Home - Self-Care Reason For Visit: BIPOLAR DISORDER,DEPRESSED Discharge Diagnosis: bipolar disorder, substance abuse Discharge Goals: Decrease discomfort, Improve disease control and Learn about illness Activity: Resume your previous activity Non-emergency contact: Primary Care Provider and Therapist Call non-emergency contact if: you have any medication questions and your symptoms worsen Follow-up/Referrals: PCP,NO [Primary Care Provider] - Diet: Regular Addtl Provider Instructions: SPECIAL CARE INSTRUCTIONS: 1. Follow through with your scheduled aftercare appointments. If unable to keep an appointment, please call to reschedule. 2. Take your medication only as prescribed. Medication should not be changed or stopped without the approval of your doctor. In the event of worsening symptoms or concerns about side effects, contact your doctor immediately. 3. Utilize new healthy coping skills, anger management skills, and stress management skills learned during your hospitalization. Journal feelings and process them with a support person. Identify stressors or situations that may result in relapse, deterioration or inappropriate behaviors and develop a plan to deal with those issues. 4. If your coping skills are ineffective and you are in crisis, contact your outpatient providers for direction. If unable to reach your providers, please call the CAN HELP LINE AT or go to the closest Emergency Room. 5. Avoid alcohol and un-prescribed drugs. 6. You have been provided with the Mental Health Advance Directives Pamphlet for your review. AFTERCARE APPOINTMENTS: * Please call your insurance company prior to your scheduled appointment to confirm your aftercare providers are covered. Take your insurance information to your appointments. WHO TO CALL AND WHEN: Medical Emergencies: For questions or emergencies related to your hospital stay, please contact the Inpatient Behavioral Health Unit at [phone]. A sausage cooker is on-call 19/04 for the Behavioral Health Unit for emergencies At any time you feel your situation is an emergency, you may also call 911 immediately. Your Doctors Instructions noted above were prepared by provider YAIR Galindo. Prescriptions: No Action No Known Home Medications RF: 0 Stand-Alone Forms: [facility] Discharge Orders: Discharge Order (Routine); Ordered 01/20/19 Ordered By: Suzan Villavicencio Admission Data Admit Date/Time: 01/17/19 19:48 Attending Provider: Velma Sin Admit Provider: Pedro Chapin Primary Care Provider: PCP,NO Other Providers: Pedro Chapin Service: Psychiatry Other Interventions: Discharge Summary Assessment (RN) Last Done: 01/20/19 11:26 PSY Interdisciplinary Discharge Planning Last Done: 01/20/19 10:27 Pending Studies at Discharge: No
--- OUTSIDE RECORDS SUMMARY | 2019-01-23 16:36 | External Medical Summary | Continuity of Care Document ---
:1995 Author Name Bobby Crisostomo, Provider Address Unavailable Unavailable , Care Team Providers Name Role Phone Unavailable Unavailable Unavailable MONROE GROVE M.D. 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) Allergies and Adverse Reactions No Known Drug Allergies (Allergy) Medications Kranthi BORREGO Refills: 0 Procedures History of Sinus Surgery Status: Complet ed History of Adenoidectomy Status: Complet ed History of Patient Education - Dietary S tatus: Completed History of Exercise Counseling Status: C ompleted Immunizations Hepatitis B On: 1997 0:00 Hepatitis B On: 1997 0:00 DTaP On: 1997 0:00 HIB On: 1997 0:00 OPV On: 1997 0:00 DTaP On: 1997 0:00 HIB On: 1997 0:00 OPV On: 1997 0:00 Hepatitis B On: 1997 0:00 DTaP On: 1997 0:00 HIB On: 1997 0:00 MMR On: 11-Jun-1998 0:00 DTaP On: 11-Sep-1998 0:00 HIB On: 11-Sep-1998 0:00 OPV On: 11-Sep-1998 0:00 Varicella On: 05-May-1999 0:00 DTaP On: 22-Feb-2002 0:00 IPV On: 22-Feb-2002 0:00 MMR On: 22-Feb-2002 0:00 Influenza On: 05-Sep-2008 0:00 Varicella On: 20-Aug-2010 9:26 Lot #: [id number], [employer] FluMist LIQD On: 20-Aug-2010 9:25 Lot #: [id number], [employer] Tdap (Adacel) On: 20-Aug-2010 9:26 Lot #: [id number], [employer] Menactra Intramuscular Injectable On: 20-Aug-2010 9:25 Lot #: [id number], [employer] Hepatitis A On: 14-Feb-2013 9:23 Lot #: [id number], [employer] Menactra Intramuscular Injectable On: 14-Feb-2013 9:24 Lot #: [id number], [employer] HPV (Gardasil) On: 14-Feb-2013 9:24 Lot #: [id number], [employer] Tdap (Adacel) On: 07-Sep-2014 14:35 Lot #: [id number], [employer] Tdap (Adacel) On: 03-Sep-2016 12:47 Lot #: [id number], [employer] Family History Grandfather Family history of Acute Myocardial Infarction (V17.3) Status : Active Mother Family history of Hyperlipidemia Status: Active Family history of Hypertension (V17.49) Status: Active Grandmother Family history of Hypertension (V17.49) Status: Active Grandfather Family history of Diabetes Mellitus (V18.0) Status: Active Family history of Aortic Aneurysm Status: Active Social History - Smoking Status Former smoker Plan of Treatment Planned Observations Planned Goals not documented Results No Known Results Results not documented Encounters Appointment; Lucy Gupta M.D. 27-Jan-2017 10:00 Encounter Diagnosis: Problem not documented
== END 2019-01-20 14:05 | disposition home or self-care (01) | DRG 885 ==
LOC: EDSEX → ED 11:33 → 3S 19:48

== ENCOUNTER 2020-10-17 12:56 | Inpatient (IN) ==
[2020-10-17 14:40] LABS: Amphetamines+Metham, Urine Neg (Neg); Barbiturates, Urine Neg (Neg); Benzodiazepine, Urine Neg (Neg); Cocaine, Urine Neg (Neg); MDMA (Ecstacy), Urine Neg (Neg); Methadone, Urine Neg (Neg); Opiate, Urine Neg (Neg); Phencyclidine, Urine Neg (Neg)
[2020-10-17] MEDS ORDERED: PENICILLIN G POTASSIUM 3 MU in DEXTROSE 5% 100 ML IV PRN (15:00)
[2020-10-17] MEDS ORDERED: PENICILLIN G POTASSIUM 6 MU in DEXTROSE 5% 250 ML IV STA (15:00)
[2020-10-17] MEDS ORDERED: OXYTOCIN 30 UNITS/500 ML BAG IV PRN ×3 (15:00→20:52)
[2020-10-17] MEDS ORDERED: ePHEDrine sulfate 50 MG/ML AMP ONE (15:18)
[2020-10-17] MEDS ORDERED: SODIUM CHLORIDE 0.9% INJ 10 ML VIAL ONE (15:18)
[2020-10-17] MEDS ORDERED: BUPIVACAINE 0.25% 30 ML VIAL ONE (15:18)
[2020-10-17] MEDS ORDERED: fentaNYL citrate 100 MCG/2 ML VIAL ONE (15:19)
[2020-10-17] MEDS ORDERED: fentaNYL 2MCG/ML ROPIVACAINE 1.25MG/ML 100 ML BAG EPI ONE (15:20)
[2020-10-17] MEDS: LACTATED RINGER'S 1,000 ML IV PRN ×2 (15:28→17:35)
[2020-10-17 15:35] LABS: Hematocrit (blood only) 31.6 % (37-47); Hemoglobin 10.3 g/dL (12.0-16.0); Mean Corpuscular Hemoglobin 28.1 pg (25-34); Mean Corpuscular Hgb Conc 32.6 g/dL (32-36); Mean Corpuscular Volume 86.3 fL (80-100); Mean Platelet Volume 9.5 fL (7.4-10.4); Platelet Count 232 K/uL (130-400); RDW Coefficient of Variation 14.4 % (11.5-14.5); RDW Standard Deviation 45.4 fL (36.4-46.3); Red Blood Count 3.66 M/uL (4.2-5.4); White Blood Count 11.78 K/uL (4.8-10.8)
--- NOTE | 2020-10-17 15:44 | Anesthesiology Consultation ---
Date of Service October 17, 2020 Assessment & Plan (1) Encounter for pre-operative examination: Chart Review Chart Review: Acceptable Risk for Labor Epidural (Pending covid test) History Height/Weight Height: 5 ft 2 in Weight: 66.224 kg Allergies Allergy/AdvReac Type Severity Reaction Status Date / Time No Known Allergies Allergy Verified 10/17/20 12:34 Medications Home Medications Medication Instructions Recorded Confirmed Last Taken prenat.vits,jaime,twf-mdmq-riokz 1 tab PO DAILY 09/06/20 10/17/20 10/12/20 11:00 omega-3 fatty acids PO DAILY 09/10/20 10/17/20 10/12/20 11:00 Active Medications Generic Name Dose Route Start Last Admin Trade Name Freq PRN Reason Stop Dose Admin Lactated Ringer's 1,000 mls @ 125 mls/hr 10/17/20 15:00 10/17/20 15:28 Lr IV 10/19/20 14:59 999 mls/hr .Q8H PRN Administration L&D Protocol Protocol Past Medical History Medical History Bipolar disorder Cannabis use disorder, moderate, dependence uses daily; has medical card Generalized anxiety disorder with panic attacks History of chicken pox Methamphetamine use last used 3 months ago Mood disorder Post traumatic stress disorder (PTSD) in active therapy due to childhood trauma Strep pharyngitis Suicidal ideation Thyroid dysfunction patient states due to Igo use in past. States levels have been "fine" Odiwj-Jaoazelox-Coelq (WPW) syndrome diagnosed at age 19; betablocker recommended but patient has not taken for 6 years because she does not like "how it makes me feel" needs cardiac cath but has not scheduled Past Family History Family History (Updated 09/06/20 @ 11:00 by Whit Zhang) Grandfather (Maternal) Hypertension Father Pulmonary hypertension Other Arthritis Denies family history of Ovarian cancer Breast cancer Colorectal cancer Past Surgical History Surgical History History of adenoidectomy Social History Smoking Status: Current every day smoker tobacco type: cigarettes Hx Alcohol Use: No Hx Substance Use: Yes substance use type: marijuana and methamphetamine Last Used Substance Other:: marijuana daily for PTSD; meth last used 3 months ago- rec use Physical Exam Vital Signs Last Vital Signs Temp 36.6 C 10/17/20 13:12 Pulse 105 H 10/17/20 15:40 Resp 20 10/17/20 13:12 BP 114/75 10/17/20 15:25 Pulse Ox 100 10/17/20 15:40 Testing Laboratory Results 10/17/20 15:21
--- NOTE | 2020-10-17 15:56 | History & Physical Report ---
Date of Service October 17, 2020 Assessment & Plan (1) : A/P: Emma Castano is a 25yo at 37+2wga who presents to L&D in labor. PMH includes bipolar I, WPW syndrome, and polysubstance use disorder. Prior pregnancies complicated by sga and preeclampsia; current complicated by first trimester methamphetamine use, tobacco and cannabis use throughout entire , late care (initiated at 32wga), and poor follow-up. * Admit to L&D * Vitals stable * IV site obtained; LR @ 125mL/hr * Admission labs notable for mild anemia (10.3), UDS positive for THC; labs unremarkable otherwise * Pitocin per protocol * Epidural upon request * AROM when indicated * Anticipate * FHRT category 1 * GBS pending; administering penicillin G IV * O pos / RI / covid negative Admission and Anticipated Discharge Date Admission Date: October 17, 2020 History of Present Illness Primary Care Provider: NO PCP Emma Castano is a 25yo at 37+2 (MALU 11/05/20 based on uncertain LMP) who presents to L&D in labor. PMH includes bipolar I disorder, Rbzug-Pflsbglgo-Ehaef syndrome, hypothyroidism, nicotine dependence, cannabis use disorder, and methamphetamine use disorder. care was initiated late in (32wga) and patient did not attend all subsequent visits. Patient has a history of preeclampsia during her first but 81mg ASA was no longer indicated by the time patient presented for her first appointment. Both prior pregnancies were complicated by small for gestational age. Patient reports waking up "feeling wet" this morning at 4am and was unsure if her water had broken, noting leakage of clear fluid. Patient fell back asleep, and then was woken up around 7am by "intense pelvic pressure" and "round ligament pain". She believes she was having contractions about every 15 minutes at that time. Patient called the clinic; she was subsequently evaluated and found to be 40/80/-2 on SSE with intact membranes. Patient was then sent to L&D for evaluation of labor. At present time, patient endorses painful contractions about 5-10 minutes apart. Patient denies further leakage of fluid since her evaluation in clinic. Endorses frequent movement although she notes its frequency has been slightly lower than normal over the past two days. Denies vaginal bleeding. Also denies fever, cough, headache, vision changes, chest pain, shortness of breath, lightheadedness, dizziness, nausea, vomiting, dysuria, leg pain, and leg swelling. Patient has an extensive psychiatric history including bipolar I disorder and a 10+ year history of polysubstance abuse (chronic use of methamphetamine, cannabis, and tobacco since adolescence). Has a history of several previous inpatient psychiatric hospitalizations for suicidal and homicidal ideation, and was also imprisoned in 2017. Endorses poor psychiatric med regimen adherence. H as a remote history of lithium maintenance therapy but has not been on this in many years. Reports she "might have hypothyroidism from the lithium" but says she has not been on synthroid "in years". Patient was on buspar and "a mood stabilizer I can't remember" prior to discovering this in April of 2020, at which point she discontinued these meds. Patient's only daily meds since 04/2020 have been pnv and an omega fatty acid. Current substance use includes daily use of tobacco and cannabis. Patient smoked 1.5 packs per day prior to 04/2020; reports three cigarettes per day since. Samira ent endorses abstinence from methamphetamine since 04/2020. Patient does not have custody of her two children but is interested in retaining custody of the baby on the way. Patient is agreeable to speaking with social work during this admission. Patient has a history of Maruc-Vycxqptfb-Pxfpv syndrome but has not seen a building pressure washer since 2013. Reports she is "supposed to be on a beta gilma" but has not taken one "in six years" due to side effects. Additionally, patient's partner has a history of cardiac defect; echo was scheduled for 08/2020 but patient missed this appointment. A building pressure washer appointment for earlier this month but patient missed this appointment as well. O pos / RI / GBS pending / covid neg / hx chlamydia / UDS pos for THC Allergies Allergy/AdvReac Type Severity Reaction Status Date / Time No Known Allergies Allergy Verified 10/17/20 12:34 Home Medications Medication Instructions Recorded Confirmed Type prenat.vits,jaime,srb-lxlb-dtmjk 1 tab PO DAILY 09/06/20 10/17/20 History omega-3 fatty acids PO DAILY 09/10/20 10/17/20 History Past Med/Surg History Medical History Bipolar disorder Cannabis use disorder, moderate, dependence uses daily; has medical card Generalized anxiety disorder with panic attacks History of chicken pox Methamphetamine use last used 3 months ago Mood disorder Post traumatic stress disorder (PTSD) in active therapy due to childhood trauma Strep pharyngitis Suicidal ideation Thyroid dysfunction patient states due to [place] use in past. States levels have been "fine" Iwwyw-Iscqvokth-Uejqm (WPW) syndrome diagnosed at age 19; betablocker recommended but patient has not taken for 6 years because she does not like "how it makes me feel" needs cardiac cath but has not scheduled Surgical History History of adenoidectomy Family History (Updated 09/06/20 @ 11:00 by Whit Zhang) Grandfather (Maternal) Hypertension Father Pulmonary hypertension Other Arthritis Denies family history of Ovarian cancer Breast cancer Colorectal cancer Social History (Updated 09/06/20 @ 11:22 by Whit Zhang) Smoking Status: Current every day smoker Hx Alcohol Use: No Hx Substance Use: Yes Last Used Substance Other:: marijuana daily for PTSD; meth last used 3 months ago- rec use Preferred Language: Tamazight Communication Ability: Effective Visual Impairment: No Limitations Hearing Ability: Normal Chair Maker Required: No Beliefs That Will Affect Care: None marital status: Single marital status details: Yrn Benavides (35) Emergency contact-Ana Haider [phone] Current Living Situation: Family and Significant Other Current Living Situation Comment: lives with fob, friend, children do not live with patient current occupational status: unemployed 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 Other Information That Helps Us Care for You: No Feels Safe at Home: Yes Safety Concerns: Feels Safe At This Time Assistive Devices: None Review of Systems Review of Systems: See HPI Physical Exam Constitutional: patient not ill-appearing; patient is calm and cooperative between contractions; patient is restless, crying, and in distress during contractions Respiratory: normal respiratory effort, lungs clear to auscultation Cardiovascular: Rate/Rhythm: regular rhythm Heart Sounds: normal S1 and normal S2; no murmur rate around 100-110 Gastrointestinal (Abdomen): normal gravid abdomen, soft, BS present, heart monitor in place Musculoskeletal: LE nontender to palpation, negative Geremias's sign bilaterally, LE without edema bilaterally Neurologic: no focal motor deficits Psychiatric: Orientation: alert, oriented x 3 and cooperative Eye Contact: good eye contact Speech: no pressured speech Affect: + labile affect Mood: + anxious mood Thought Process: linear/logical thought process Thought Content: reality based without delusions Suicidal Thoughts: denies suicidal thoughts Homicidal Thoughts: denies homicidal thoughts Hallucinations: no auditory hallucinations and no visual hallucinations Results & Data Results & Data ([facility]) Vital Signs (Past 12 Hours) Vital Signs Temp Pulse Resp BP Pulse Ox 10/17/20 13:49 89 100 10/17/20 13:44 88 100 10/17/20 13:39 88 99 10/17/20 13:34 103 H 100 10/17/20 13:29 91 H 100 10/17/20 13:12 36.6 C 113 H 20 113/76 10/17/20 13:00 113 H 113/76 10/17/20 12:58 36.6 C Code Status & VTE Plan VTE Prophylaxis Plan VTE Prophylaxis will be ordered: No Supervising Physician Co-Signing Physician Notes Resident Physician Supervision Note: I interviewed and examined the patient. Discussed with Dr. Reyes and agree with findings and plan as documented in the note. Any exceptions or clarifications are listed here: at 37 weeks who presents to labor and delivery to r/o labor. Was in office earlier today to r/o rom and is not ruptured. But found to be 4cm and sent for evaluation. She made change to 5-6cm/80/-2 and admitted for labor. GBS unknown so treating. UDS + for MJ which she uses daily and claims to have a medical card. neg for Meth, notes has not used for 3 months. Hx of unmedicated bipolar d/o. Hx of WPW last seen by cards in 2013. Had planned to have ablation but never followed through. Has not been on her beta gilma for years. Previously hypothyroid, nl TSH in this . Late presentation to care at 32 weeks. Dating by lmp c/w 32 week ultrasound. Has had a total of three visits including today. Fetus had a poor heart views on US--? dilated right atrium and ? dilated pul aa. FOB with hx of heart issues. Echo not obtained. o/w ob labs all wnl. Did have gtt at 32 weeks and normal. So, will admit for labor. AROM/pit as indicated. Anticipate . Two previous vaginal deliveries 4 and 5# babies. will need ss consult postdelivery. Documented By: Sandra Campos MD, FACOG Resident Activity Tracking Resident Involvement: Resident Care Provided Care Provided: OB Delivery
[2020-10-17] MEDS ORDERED: ePHEDrine sulfate 50 MG/ML AMP IV PRN (17:05)
[2020-10-17] MEDS ORDERED: fentaNYL 2MCG/ML ROPIVACAINE 1.25MG/ML 100 ML BAG EPI PRN (17:05)
[2020-10-17] MEDS ORDERED: NALOXONE HCL 1 MG in SODIUM CHLORIDE 0.9% 1000ML 1,000 ML IV PRN (17:05)
[2020-10-17] MEDS ORDERED: ONDANSETRON INJ 2 MG/ML 2 ML VIAL IV PRN (17:05)
[2020-10-17] MEDS ORDERED: NALOXONE HCL 0.4 MG/1 ML VIAL/CARP IV PRN (17:05)
--- NOTE | 2020-10-17 17:40 | Labor Progress Brief Note ---
Date of Service October 17, 2020 Subjective comfortable with epidural Assessment & Plan (1) Normal labor: Admission and Anticipated Discharge Date Admission Date: October 17, 2020 first dose of pcn on . will expectantly mange for now. If contractions spaced, consider pitocin. arom when indicated, will likely hold off til second dose of pcn. fetus category one. anticipate . Physical Exam Constitutional: WD/WN, vitals as above Psychiatric: A+Ox3, euthymic affect Genitourinary: cx--/-2, bulging bag toco--difficult tracing since epidural, will adjust toco efm--140s wtih mod variability , small accels, no decels. Results & Data ([facility]) Vital Signs (Past 12 Hours) Vital Signs Temp Pulse Resp BP Pulse Ox 10/17/20 17:37 94 H 114/75 10/17/20 17:32 110 H 99 10/17/20 17:27 92 H 100 10/17/20 17:22 99 H 100 10/17/20 17:21 96 H 109/64 10/17/20 17:17 94 H 100 10/17/20 17:12 91 H 100 10/17/20 17:07 99 H 85 L 10/17/20 17:02 89 100 10/17/20 16:57 97 H 100 10/17/20 16:55 98 H 94 10/17/20 16:52 92 H 100 10/17/20 16:50 99 H 91 10/17/20 16:47 104 H 87 L 10/17/20 16:45 98 H 92 10/17/20 16:42 103 H 100 10/17/20 16:37 98 H 100 10/17/20 16:34 97 H 91 10/17/20 16:33 105 H 108/60 10/17/20 16:32 100 H 98 10/17/20 16:29 94 H 108/54 L 10/17/20 16:27 88 100 10/17/20 16:25 102 H 94/56 L 10/17/20 16:22 105 H 100 10/17/20 16:18 101 H 104/62 10/17/20 16:17 102 H 100 10/17/20 16:16 113 H 108/70 10/17/20 16:14 89 107/64 10/17/20 16:12 99 H 112/71 99 10/17/20 16:10 101 H 89 L 10/17/20 16:07 107 H 100 10/17/20 16:03 104 H 88 L 10/17/20 16:02 101 H 100 10/17/20 15:57 101 H 90 10/17/20 15:54 100 H 94 10/17/20 15:50 97 H 100 10/17/20 15:47 102 H 90 10/17/20 15:45 101 H 100 10/17/20 15:40 105 H 100 10/17/20 15:35 100 H 100 10/17/20 15:30 108 H 98 10/17/20 15:25 101 H 114/75 100 10/17/20 13:49 89 100 10/17/20 13:44 88 100 10/17/20 13:39 88 99 10/17/20 13:34 103 H 100 10/17/20 13:29 91 H 100 10/17/20 13:12 36.6 C 113 H 20 113/76 10/17/20 13:00 113 H 113/76 10/17/20 12:58 36.6 C Coding Level of Care Code None Diagnoses Normal labor O80; Z37.9
--- NOTE | 2020-10-17 20:07 | Labor Progress Brief Note ---
Date of Service October 17, 2020 Subjective comfortable Assessment & Plan (1) Normal labor: Admission and Anticipated Discharge Date Admission Date: October 17, 2020 doing well. Anticipate . fetus reassuring. Physical Exam Constitutional: WD/WN, vitals as above Psychiatric: A+Ox3, euthymic affect Genitourinary: cx--ant lip/0 arom--clear, copious toco--q2-3min efm--150s wtih mod variability, small accels, no decels Results & Data ([facility]) Vital Signs (Past 12 Hours) Vital Signs Temp Pulse Resp BP Pulse Ox 10/17/20 20:02 98 H 88 L 10/17/20 19:57 123 H 90 10/17/20 19:56 113 H 91 10/17/20 19:52 128 H 99 10/17/20 19:50 120 H 107/64 10/17/20 19:47 102 H 100 10/17/20 19:42 101 H 98 10/17/20 19:37 115 H 100 10/17/20 19:36 111 H 93 10/17/20 19:32 104 H 100 10/17/20 19:31 99 H 93 10/17/20 19:30 20 10/17/20 19:27 100 H 99 10/17/20 19:22 100 H 97 10/17/20 19:20 99 H 125/62 93 10/17/20 19:17 111 H 99 10/17/20 19:13 119 H 93 10/17/20 19:12 115 H 99 10/17/20 19:10 36.7 C 20 10/17/20 19:07 101 H 99 10/17/20 19:02 102 H 100 10/17/20 18:57 99 H 99 10/17/20 18:52 110 H 100 10/17/20 18:50 108 H 114/66 10/17/20 18:47 107 H 100 10/17/20 18:42 107 H 100 10/17/20 18:37 107 H 97 10/17/20 18:36 100 H 135/60 10/17/20 18:34 103 H 90 10/17/20 18:32 107 H 100 10/17/20 18:30 37.1 C 20 10/17/20 18:27 98 H 99 10/17/20 18:26 100 H 111/58 L 10/17/20 18:22 114 H 99 10/17/20 18:17 96 H 100 10/17/20 18:12 113 H 100 10/17/20 18:07 105 H 100 10/17/20 18:02 97 H 74 L 10/17/20 17:57 104 H 100 10/17/20 17:52 109 H 100 10/17/20 17:51 103 H 107/62 10/17/20 17:47 101 H 100 10/17/20 17:44 88 94 10/17/20 17:42 95 H 100 10/17/20 17:37 94 H 114/75 100 10/17/20 17:32 110 H 99 10/17/20 17:27 92 H 100 10/17/20 17:22 99 H 100 10/17/20 17:21 96 H 109/64 10/17/20 17:17 94 H 100 10/17/20 17:12 91 H 100 10/17/20 17:07 99 H 85 L 10/17/20 17:02 89 100 10/17/20 16:57 97 H 100 10/17/20 16:55 98 H 94 10/17/20 16:52 92 H 100 10/17/20 16:50 99 H 91 10/17/20 16:47 104 H 87 L 10/17/20 16:45 98 H 92 10/17/20 16:42 103 H 100 10/17/20 16:37 98 H 100 10/17/20 16:34 97 H 91 10/17/20 16:33 105 H 108/60 10/17/20 16:32 100 H 98 10/17/20 16:29 94 H 108/54 L 10/17/20 16:27 88 100 10/17/20 16:25 102 H 94/56 L 10/17/20 16:22 105 H 100 10/17/20 16:18 101 H 104/62 10/17/20 16:17 102 H 100 10/17/20 16:16 113 H 108/70 10/17/20 16:14 89 107/64 10/17/20 16:12 99 H 112/71 99 10/17/20 16:10 101 H 89 L 10/17/20 16:07 107 H 100 10/17/20 16:03 104 H 88 L 10/17/20 16:02 101 H 100 10/17/20 15:57 101 H 90 10/17/20 15:54 100 H 94 10/17/20 15:50 97 H 100 10/17/20 15:47 102 H 90 10/17/20 15:45 101 H 100 10/17/20 15:40 105 H 100 10/17/20 15:35 100 H 100 10/17/20 15:30 108 H 98 10/17/20 15:25 101 H 114/75 100 10/17/20 13:49 89 100 10/17/20 13:44 88 100 10/17/20 13:39 88 99 10/17/20 13:34 103 H 100 10/17/20 13:29 91 H 100 10/17/20 13:12 36.6 C 113 H 20 113/76 10/17/20 13:00 113 H 113/76 10/17/20 12:58 36.6 C Coding Level of Care Code None Diagnoses Normal labor O80; Z37.9
[2020-10-17] MEDS ORDERED: HYDROCORTISONE ACETATE 25 MG SUPP PR PRN (20:52)
[2020-10-17] MEDS ORDERED: SUPERCREAM 0.870% 15 GM JAR EXT PRN (20:52)
[2020-10-17] MEDS ORDERED: bisacodyL 10 MG SUPP PR PRN (20:52)
[2020-10-17] MEDS ORDERED: DIPHTHERIA/TETANUS/PERTUSSIS 0.5 ML SYR/VIAL IM ONE (20:52)
[2020-10-17] MEDS ORDERED: BENZOCAINE 20% AER SPR 82.5 GM CAN EXT PRN (20:52)
[2020-10-17] MEDS: ACETAMINOPHEN 325 MG TAB PO PRN (20:57)
[2020-10-17] MEDS: DOCUSATE SODIUM 100 MG CAP PO SCH (21:08)
--- NOTE | 2020-10-17 21:12 | Anesthesia Procedure Note ---
Date of Service October 17, 2020 Anesthesia Post Epidural Note Vital Signs Vital Signs: Temp Pulse Resp BP Pulse Ox 36.7 C 100 H 20 114/65 96 10/17/20 20:01 10/17/20 21:11 10/17/20 20:55 10/17/20 21:11 10/17/20 20:37 Pain Intensity Bilateral Head: Pain Intensity: 4 Notes Mental Status: alert / awake / arousable and participated in evaluation Nausea / Vomiting: adequately controlled Pain: adequately controlled Airway Patency, RR, SpO2: stable & adequate BP & HR: stable & adequate Hydration State: stable & adequate Neuraxial Anesthesia: was administered and sensory block is resolving Anesthetic Complications: no major complications apparent Epidural: Removed without complications and With tip intact
[2020-10-17] MEDS: IBUPROFEN 600 MG TAB PO PRN (23:45)
[2020-10-18] MEDS: IBUPROFEN 600 MG TAB PO PRN ×3 (04:00→20:31)
[2020-10-18 06:29] LABS: Hematocrit (blood only) 28.3 % (37-47); Hemoglobin 9.6 g/dL (12.0-16.0)
--- NOTE | 2020-10-18 07:07 | Obstetrical Progress Note ---
Date of Service <Brendan Reyes MD - Last Filed: 10/18/20 07:34> October 18, 2020 Assessment & Plan <Brendan Reyes MD - Last Filed: 10/18/20 07:34> (1) Normal labor: A/P: Emma Castano is a 25 y/o female on PPD#1 following at 37+5 weeks. * Patient feels well today; eating well, voiding well, ambulating well * Pain well-controlled with ibuprofen 600mg q4h prn * PNL: Rh pos, RI, GBS pending, COVID neg * Routine care: OOB, ambulation, diet progression as tolerated * To be seen by case management / social work manager today * After discharge, will have six-week follow-up with Dr. Andres Elias <Brendan Reyes MD - Last Filed: 10/18/20 07:34> Emma Castano is a 25 y/o female on PPD#1 following at 37+5 weeks. She reports feeling well overall this morning. Minimal abdominal cramping and 2/10 pain well managed on analgesics. Voiding well. Tolerating meals overnight without difficulty. Patient has been able to ambulate some. Has persistent lochia with some improvement this morning. Currently . Review of Systems Denies fever or chills. Denies shortness of breath or cough. Denies chest pain. Denies breast pain. Denies dysuria. Denies leg pain or leg swelling. Denies headache or changes in vision. Physical Exam <Brendan Reyes MD - Last Filed: 10/18/20 07:34> General: alert, oriented, no acute distress Cardiac: regular rate and rhythm, no murmurs appreciated Respiratory: lungs clear to auscultation bilaterally a/p, no wheezes/rales/rhonchi, no increased work of breathing, symmetrical chest rise, no respiratory distress Abdomen: soft, minimally tender, nondistended, bowel sounds present Uterus: uterine fundus firm, palpable 5 cm below umbilicus Lower extremities: no lower extremity edema or swelling, no deep calf pain, Geremias's negative bilaterally Results & Data ([facility]) <Brendan Reyes MD - Last Filed: 10/18/20 07:34> Vital Signs (Past 12 Hours) Vital Signs Temp Pulse Resp BP Pulse Ox 10/18/20 03:45 36.4 C L 76 18 110/69 10/17/20 23:30 36.4 C L 90 18 120/73 10/17/20 22:41 109 H 105/59 L 10/17/20 22:40 109 H 20 105/59 L 10/17/20 22:26 110 H 122/57 L 10/17/20 22:11 100 H 119/61 10/17/20 22:10 100 H 20 119/61 10/17/20 21:41 95 H 112/62 10/17/20 21:40 103 H 18 116/66 10/17/20 21:26 103 H 116/66 10/17/20 21:25 103 H 20 116/66 10/17/20 21:11 100 H 114/65 10/17/20 21:10 100 H 20 114/65 10/17/20 20:57 99 H 123/65 10/17/20 20:55 20 10/17/20 20:41 104 H 109/69 10/17/20 20:40 104 H 20 109/69 10/17/20 20:37 107 H 96 10/17/20 20:32 127 H 100 10/17/20 20:31 139 H 92 10/17/20 20:27 153 H 99 10/17/20 20:22 113 H 100 10/17/20 20:19 20 10/17/20 20:17 103 H 96 10/17/20 20:14 97 H 85 L 10/17/20 20:12 93 H 100 10/17/20 20:07 92 H 90 10/17/20 20:02 98 H 88 L 10/17/20 20:01 36.7 C 20 10/17/20 19:57 123 H 90 10/17/20 19:56 113 H 91 10/17/20 19:52 128 H 99 10/17/20 19:50 120 H 107/64 10/17/20 19:47 102 H 100 10/17/20 19:42 101 H 98 10/17/20 19:37 115 H 100 10/17/20 19:36 111 H 93 10/17/20 19:32 104 H 100 10/17/20 19:31 99 H 93 10/17/20 19:30 20 10/17/20 19:27 100 H 99 10/17/20 19:22 100 H 97 10/17/20 19:20 99 H 125/62 93 10/17/20 19:17 111 H 99 10/17/20 19:13 119 H 93 10/17/20 19:12 115 H 99 10/17/20 19:10 36.7 C 20 10/17/20 19:07 101 H 99 <Sandra Campos MD, FACOG - Last Filed: 10/18/20 07:40> Co-Signing Physician Notes Resident Physician Supervision Note: I interviewed and examined the patient. Discussed with Dr. Reyes and agree with findings and plan as documented in the note. Any exceptions or clarifications are listed here: Doing well. Routine care. Plan SS consult today. child line called. Documented By: Sandra Campos MD, FACOG Resident Activity Tracking <Brendan Reyes MD - Last Filed: 10/18/20 07:34> Resident Involvement: Resident Care Provided Care Provided: OB Delivery
--- NOTE | 2020-10-18 07:39 | Delivery Summary ---
Vaginal Delivery Summary Date of Service October 18, 2020 late entry Pre-operative Diagnosis: at 37 weeks labor substance abuse WPW syndrome poor care Post-operative Diagnosis: same Procedure: epidural arom pitocin augmentation EBL: 300cc Anesthesia: epidural Procedure: The patient pushed for 2-3 contractions to deliver a viable male in mason position. The nose and mouth were bulb suctioned on the perineum and the rest of the was then delivered without difficulty. The baby was vigorous. The nose and mouth were again bulb suctioned and the was placed in the maternal abdomen for drying and attention. Cord was clamped and cut at one minute of life. Cord blood and segment obtained. Placenta delivered spontaneous, intact with a three vessel cord. Cervix/sulci/rectum/perineum were intact. Hemostasis obtained with dilute pitocin and fundal massage. Apgars were 8/9. Mother and baby doing well at the end of the delivery. Vaginal Delivery Summary [facility] Vaginal Delivery Charge Delivery Type Details: [facility]
[2020-10-18] MEDS: PRENATAL VITAMIN 1 TAB PO SCH (08:11)
[2020-10-18] MEDS: ACETAMINOPHEN 325 MG TAB PO PRN (08:11)
[2020-10-18] MEDS: DOCUSATE SODIUM 100 MG CAP PO SCH ×2 (08:11→20:31)
[2020-10-18] MEDS ORDERED: miSOPROStoL 200 MCG TAB ONE (19:21)
[2020-10-18] MEDS ORDERED: bisacodyL 5 MG TABEC PO SCH (20:00)
[2020-10-19] MEDS: IBUPROFEN 600 MG TAB PO PRN (05:06)
--- NOTE | 2020-10-19 06:59 | Obstetrical Progress Note ---
Date of Service October 19, 2020 Assessment & Plan (1) Normal labor: A/P: Emma Castano is a 25 y/o female on PPD#2 following at 37+5 weeks. * Patient feels well today; eating well, voiding well, ambulating well * Pain well-controlled with ibuprofen 600mg q4h prn * PNL: Rh pos, RI, GBS pending, COVID neg * Routine care: OOB, ambulation, diet progression as tolerated * To be seen by case management / social welfare research worker today * After discharge, will have six-week follow-up with Dr. Andres Elias Emma Castano is a 25 y/o female on PPD#2 following at 37+5 weeks. She reports feeling well overall this morning. Minimal abdominal cramping and 4/10 pain well managed on analgesics. Voiding well. Tolerating meals overnight without difficulty. Patient has been able to ambulate some. Has persistent lo ysabel with some improvement this morning. Currently . Review of Systems Denies fever, chills, CP, SOB, cough, breast pain, dysuria, leg pain, leg swelling, headache, and changes in vision. Physical Exam General: alert, oriented, no acute distress Cardiac: regular rate and rhythm, no murmurs appreciated Respiratory: lungs clear to auscultation bilaterally a/p, no wheezes/rales/rhonchi, no increased work of breathing, symmetrical chest rise, no respiratory distress Abdomen: soft, minimally tender, nondistended, bowel sounds present Uterus: uterine fundus firm, palpable 6cm below umbilicus Lower extremities: no lower extremity edema or swelling, no deep calf pain, Geremias's negative bilaterally Results & Data ([facility]) Vital Signs (Past 12 Hours) Vital Signs Temp Pulse Resp BP 10/19/20 00:05 36.4 C L 76 18 110/71 10/18/20 20:00 36.7 C 85 16 118/80 Resident Activity Tracking Resident Involvement: Resident Care Provided Care Provided: OB Delivery
[2020-10-19] MEDS: ACETAMINOPHEN 325 MG TAB PO PRN (07:43)
[2020-10-19] MEDS: DOCUSATE SODIUM 100 MG CAP PO SCH (07:43)
[2020-10-19] MEDS: PRENATAL VITAMIN 1 TAB PO SCH (07:43)
[2020-10-20 23:07] LABS: Marijuana Quant, GCMS Urine 167 ng/mL (<5)
--- NOTE | 2020-10-29 14:16 | Coding Query ---
CODING QUERY To promote full compliance with coding requirements relating to patient care, provider participation is requested in all cases of school crossing guard supervisor uncertainty. Please assist us with the question(s) below: Coding Question(s): There is documentation of WPW Syndrome in the record and on the Vaginal Delivery Summary. Please specify below, in your clinical opinion. ( ) /Childbirth was complicated by WPW Syndrome and it was monitored and/or treated during the admission ( x ) WPW Syndrome was not monitored or treated during this admission and was not complicating the /Childbirth ( ) Other: Please Specify Physician's Response(s): Thank you Yu Craig Principal Diagnosis: "that condition established after study, to be chiefly responsible for occasioning the admission of the patient to the hospital for care." Co-Existing Principal Diagnosis: "when two or more diagnoses equally meet the criteria for principal diagnosis as determined by the circumstances of admission, diagnostic work up, and/or therapy provided, and the Alphabetic Index, Tabular List, or another coding guideline does not provide sequencing direction, any one of the diagnoses may be sequenced first." "When the physician has documented what appears to be a current diagnosis in the body of the record, but has not included the diagnosis in the final diagnostic statement, the physician should be asked whether the diagnosis should be added." ([facility]oding [facility] 2 QTR90. p3-4) PRISCILLA
== END 2020-10-19 12:45 | disposition home or self-care (01) | DRG 807 ==
LOC: OPB 12:56 → 4S1 12:57 → 4S2 23:16

== ENCOUNTER 2022-05-07 19:30 | Inpatient (IN) ==
[2022-05-07] MEDS ORDERED: SODIUM CHLORIDE 0.9% 1000ML 1,000 ML IV ONE (22:39)
--- NOTE | 2022-05-07 22:44 | Emergency Department Note ---
History of Present Illness General Chief complaint: Arm Pain Stated complaint: POSSIBLE ABCESS ON R ARM Time Seen by Provider: 05/07/22 22:33 History of Present Illness Maximum Pain Intensity: 8 This 27-year-old with IV drug abuse history presents to the ER complaining of right arm pain and swelling with chest pain shortness of breath fever chills and not feeling right for the past few days Location: Generalized Quality: Weak and shaky Severity: Moderate Duration: Past few days Timing: Started few days ago Context: Patient was concerned and came in Modifying factors: better with rest; worse with activity Patient states the needle that she used was dirty and bent. She is concerned she might have an abscess or infection. 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 She uses marijuana. She denies any other drug use. Patient states has had intermittent chest pain and shortness of breath. No prior history of endocarditis. Patient denies abdominal pain, vomiting, diarrhea. Home Medications Medication Instructions Recorded Confirmed Type No Known Home Medications 05/08/22 05/08/22 History Allergies Allergy/AdvReac Type Severity Reaction Status Date / Time No Known Allergies Allergy Verified 05/08/22 01:11 Past Med/Surg History Medical History Bipolar disorder Cannabis use disorder, moderate, dependence uses daily; has medical card Generalized anxiety disorder with panic attacks History of chicken pox Methamphetamine use last used 3 months ago Mood disorder Post traumatic stress disorder (PTSD) in active therapy due to childhood trauma Strep pharyngitis Suicidal ideation Thyroid dysfunction patient states due to Rainbow use in past. States levels have been "fine" Iwvpi-Rphnbqiqq-Mylhw (WPW) syndrome diagnosed at age 19; betablocker recommended but patient has not taken for 6 years because she does not like "how it makes me feel" needs cardiac cath but has not scheduled Surgical History History of adenoidectomy Family History Grandfather (Maternal) Hypertension Father Pulmonary hypertension Other Arthritis Denies family history of Ovarian cancer Breast cancer Colorectal cancer Social History Smoking Status: Current every day smoker Tobacco Type: Cigarettes Hx Alcohol Use: No Hx Substance Use: Yes Last Used Substance Other:: marijuana daily for PTSD; me th last used 3 months ago- rec use Preferred Language: Italian Communication Ability: Effective Visual Impairment: No Limitations Hearing Ability: Normal Box Puller Required: No Beliefs That Will Affect Care: None marital status: Single marital status details: Yrn Benavides (35) Emergency contact-Ana Britt [facility] [phone] Current Living Situation: Family and Significant Other Current Living Situation Comment: lives with fob, friend, children do not live with patient current occupational status: unemployed 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 Feels Safe at Home: Yes Assistive Devices: None Review of Systems A total of 10 systems reviewed and were otherwise negative Physical Exam Vital Signs Vital Signs - 24 hr 05/07/22 19:33 05/08/22 01:10 05/08/22 01:10 Temperature 36.8 C Temperature Source Temporal Artery Scan Pulse Rate 108 H Pulse Rate [Right Finger] 84 Respiratory Rate 17 16 Respiratory Effort / Characteristics Non-Labored Spontaneous Non-Labored Respiratory Depth Normal Respiratory Pattern Regular Blood Pressure 118/84 Blood Pressure [Right Arm] 136/77 Blood Pressure Mean 95 Blood Pressure Mean [Right Arm] 96 Blood Pressure Position Sitting Pulse Oximetry 100 100 100 Oxygen Delivery Method Room Air Room Air Room Air Sepsis Recent Fever Within 48 Hours No Sepsis New/Unexplained Change in Mental Status No Sepsis Action Taken by Nursing No Action Required 05/08/22 01:11 05/08/22 01:30 05/08/22 02:00 Temperature Temperature Source Pulse Rate 85 Pulse Rate [Right Finger] Respiratory Rate 19 Respiratory Effort / Characteristics Non-Labored Non-Labored Respiratory Depth Respiratory Pattern Blood Pressure Blood Pressure [Right Arm] Blood Pressure Mean Blood Pressure Mean [Right Arm] Blood Pressure Position Pulse Oximetry 100 100 Oxygen Delivery Method Sepsis Recent Fever Within 48 Hours Sepsis New/Unexplained Change in Mental Status Sepsis Action Taken by Nursing 05/08/22 02:30 05/08/22 03:00 05/08/22 03:30 Temperature Temperature Source Pulse Rate Pulse Rate [Right Finger] Respiratory Rate 16 16 Respiratory Effort / Characteristics Non-Labored Spontaneous Non-Labored Non-Labored Respiratory Depth Respiratory Pattern Blood Pressure Blood Pressure [Right Arm] Blood Pressure Mean Blood Pressure Mean [Right Arm] Blood Pressure Position Pulse Oximetry 100 99 98 Oxygen Delivery Method Room Air Sepsis Recent Fever Within 48 Hours Sepsis New/Unexplained Change in Mental Status Sepsis Action Taken by Nursing 05/08/22 04:00 Temperature Temperature Source Pulse Rate Pulse Rate [Right Finger] Respiratory Rate Respiratory Effort / Characteristics Non-Labored Spontaneous Respiratory Depth Respiratory Pattern Blood Pressure Blood Pressure [Right Arm] Blood Pressure Mean Blood Pressure Mean [Right Arm] Blood Pressure Position Pulse Oximetry 98 Oxygen Delivery Method Room Air Sepsis Recent Fever Within 48 Hours Sepsis New/Unexplained Change in Mental Status Sepsis Action Taken by Nursing VITALS: Vitals are noted on the nurse's note and reviewed by myself. Vital signs tachycardic. GENERAL: Shaky appearing female with track boggs, in no acute distress, nondiaphoretic, well-developed well-nourished. SKIN: Multiple track boggs, right antecubital erythematous without palpable abscess, the rest of the skin was without rashes, erythema, edema, or bruising. There is no tenting of the skin. Capillary reflex less than 2 seconds. HEAD: Normocephalic atraumatic. EARS: External auditory canals clear, EYES: Pupils equal round and reactive to light and accommodation. Conjunctivae without injection, sclerae without icterus. Extraocular movements intact. NOSE: Patent, turbinates without inflammation or discharge. MOUTH: Mucous membranes moist. Pharynx without erythema or exudate. Uvula midline. Airway patent. Tongue does not deviate. NECK: Supple without nuchal rigidity. No lymphadenopathy. No thyromegaly. Cervical spine is nontender. No JVD. HEART: Tachycardic rate and rhythm LUNGS: Clear to auscultation bilaterally without wheezes, rales or rhonchi. No retractions or accessory muscle use. ABDOMEN: Positive bowel sounds x 4. Normal tympanic percussion. Soft, nontender, without masses or organomegaly. Sadler sign negative. No guarding or rebound tenderness. No CVA tenderness MUSCULOSKELETAL: No muscle atrophy noted. NEURO: Patient was alert and oriented to person place and time. Normal sensation to light and sharp touch. No focal neurological deficits. Course Administered Medications Discontinued Medications Sodium Chloride (Nss 1000ml) 1,000 mls @ 999 mls/hr IV .Q1H1M ROSALIO Stop: 05/07/22 23:45 Last Infusion: 05/08/22 01:29 Dose: 0 mls/hr Documented By: Admin: 05/07/22 23:27 Dose: 999 mls/hr Documented By: ASW Sodium Chloride (Nss 1000ml) 1,000 mls @ 999 mls/hr IV .Q1H1M ONE Stop: 05/07/22 23:39 Last Infusion: 05/08/22 01:11 Dose: 0 mls/hr Documented By: Admin: 05/07/22 23:27 Dose: 999 mls/hr Documented By: ASW Vancomycin HCl 1,250 mg/ (Sodium Chloride) 525 mls @ 200 mls/hr IV NOW ONE Stop: 05/08/22 01:25 Last Infusion: 05/08/22 03:09 Dose: 0 mls/hr Documented By: Admin: 05/07/22 23:27 Dose: 200 mls/hr Documented By: ASW Ioversol (Optiray 320 125ml) 120 ml IV ONCE ONE Stop: 05/08/22 01:17 Last Admin: 05/08/22 01:16 Dose: 120 ml Documented By: [facility] Medical Decision Making Medical Records Attestation: I reviewed the patient's medical records. Home Medications Current Medication List: was personally reviewed by nd Laboratory Data Attestation: I reviewed the patient's lab results. Result diagrams: 05/07/22 23:11 05/07/22 23:11 Lab Results 05/07/22 05/07/22 05/07/22 Range/Units 23:11 23:11 23:11 WBC 7.50 (4.8-10.8) K/ul RBC 4.33 (3.93-5.22) M/uL Hgb 13.2 (12.0-16.0) g/dl Hct 39.7 (34.1-44.9) % MCV 91.7 (80.0-100.0) fL MCH 30.5 (25.0-34.0) pg MCHC 33.2 (32.0-36.0) g/dL RDW Std Deviation 42.9 (36.4-46.3) fL RDW Coeff of Jose 12.7 (11.5-14.5) % Plt Count 248 (130-400) K/uL MPV 9.5 (9.4-12.3) fL Immature Gran % (Auto) 0.3 % Neut % (Auto) 64.1 % Lymph % (Auto) 26.5 % [place] % (Auto) 7.5 % Eos % (Auto) 1.2 % Baso % (Auto) 0.4 % Neut # (Auto) 4.81 (1.4-6.5) K/uL Lymph # (Auto) 1.99 (1.2-3.4) K/uL [place] # (Auto) 0.56 (0.24-0.82) K/uL Eos # (Auto) 0.09 (0-0.50) K/uL Baso # (Auto) 0.03 (0-0.2) K/uL Immature Gran # (Auto) 0.02 (0.00-0.02) K/uL ESR (0-20) mm/hr PT 9.4 (9.0-12.0) Seconds INR 0.9 (0.9-1.1) APTT 27.9 (21.0-31.0) Seconds PTT Ratio 1.0 Sodium 136 (136-145) mmol/L Potassium 3.7 (3.5-5.1) mmol/L Chloride 105 (98-107) mmol/L Carbon Dioxide 21 (21-32) mmol/L Anion Gap 10 (3-11) BUN 8 (6-23) mg/dl Creatinine 0.52 L (0.6-1.2) mg/dl Est Cr Clr Drug Dosing 137.6 ml/min Est GFR ( Amer) > 150.0 ml/min Est GFR (Non-Af Amer) 132.8 ml/min BUN/Creatinine Ratio 15.4 (10-20) Glucose 106 H (70-99(Fasting)) mg/dl Lactate (0.4-2.0) mmol/L Calcium 8.8 (8.5-10.1) mg/dl Magnesium 2.0 (1.7-2.4) mg/dl Total Bilirubin 0.2 (0.2-1.0) mg/dl AST 15 (13-39) U/L ALT 15 (7-52) U/L Alkaline Phosphatase 75 (34-104) U/L Troponin I High Sens 5.2 (0-14) pg/ml C-Reactive Protein 3.34 H (0-0.5) mg/dl Total Protein 6.6 (6.0-8.3) gm/dl Albumin 3.7 (3.4-5.0) gm/dl Globulin 2.9 (2.5-4.0) gm/dl Albumin/Globulin Ratio 1.3 (0.9-2) HCG, Qual (Negative) HCG, Quant mIU/ml Urine Color Urine Appearance (Clear) Urine pH (4.5-7.5) Ur Specific [place] (1.000-1.030) Urine Protein (Negative) Urine Glucose (UA) (Negative) Urine Ketones (Negative) Urine Blood (Negative) Urine Nitrite (Negative) Urine Bilirubin (Negative) Urine Urobilinogen (Negative) Ur Leukocyte Esterase (Negative) Urine Opiates Screen (Neg) Ur Methadone, Qual (Neg) Urine Barbiturates (Neg) Ur Phencyclidine (PCP) (Neg) U Amphetamin/Meth Scrn (Neg) MDMA (Ecstasy) Screen (Neg) U Benzodiazepines Scrn (Neg) Ur Cocaine Metabolite (Neg) U Marijuana (THC) Screen (Neg) 05/07/22 05/07/22 05/07/22 Range/Units 23:11 23:11 23:11 WBC (4.8-10.8) K/ul RBC (3.93-5.22) M/uL Hgb (12.0-16.0) g/dl Hct (34.1-44.9) % MCV (80.0-100.0) fL MCH (25.0-34.0) pg MCHC (32.0-36.0) g/dL RDW Std Deviation (36.4-46.3) fL RDW Coeff of Jose (11.5-14.5) % Plt Count (130-400) K/uL MPV (9.4-12.3) fL Immature Gran % (Auto) % Neut % (Auto) % Lymph % (Auto) % [place] % (Auto) % Eos % (Auto) % Baso % (Auto) % Neut # (Auto) (1.4-6.5) K/uL Lymph # (Auto) (1.2-3.4) K/uL [place] # (Auto) (0.24-0.82) K/uL Eos # (Auto) (0-0.50) K/uL Baso # (Auto) (0-0.2) K/uL Immature Gran # (Auto) (0.00-0.02) K/uL ESR 29 H (0-20) mm/hr PT (9.0-12.0) Seconds INR (0.9-1.1) APTT (21.0-31.0) Seconds PTT Ratio Sodium (136-145) mmol/L Potassium (3.5-5.1) mmol/L Chloride (98-107) mmol/L Carbon Dioxide (21-32) mmol/L Anion Gap (3-11) BUN (6-23) mg/dl Creatinine (0.6-1.2) mg/dl Est Cr Clr Drug Dosing ml/min Est GFR ( Amer) ml/min Est GFR (Non-Af Amer) ml/min BUN/Creatinine Ratio (10-20) Glucose (70-99(Fasting)) mg/dl Lactate 2.1 H* (0.4-2.0) mmol/L Calcium (8.5-10.1) mg/dl Magnesium (1.7-2.4) mg/dl Total Bilirubin (0.2-1.0) mg/dl AST (13-39) U/L ALT (7-52) U/L Alkaline Phosphatase (34-104) U/L Troponin I High Sens (0-14) pg/ml C-Reactive Protein (0-0.5) mg/dl Total Protein (6.0-8.3) gm/dl Albumin (3.4-5.0) gm/dl Globulin (2.5-4.0) gm/dl Albumin/Globulin Ratio (0.9-2) HCG, Qual Positive (Negative) HCG, Quant mIU/ml Urine Color Urine Appearance (Clear) Urine pH (4.5-7.5) Ur Specific [place] (1.000-1.030) Urine Protein (Negative) Urine Glucose (UA) (Negative) Urine Ketones (Negative) Urine Blood (Negative) Urine Nitrite (Negative) Urine Bilirubin (Negative) Urine Urobilinogen (Negative) Ur Leukocyte Esterase (Negative) Urine Opiates Screen (Neg) Ur Methadone, Qual (Neg) Urine Barbiturates (Neg) Ur Phencyclidine (PCP) (Neg) U Amphetamin/Meth Scrn (Neg) MDMA (Ecstasy) Screen (Neg) U Benzodiazepines Scrn (Neg) Ur Cocaine Metabolite (Neg) U Marijuana (THC) Screen (Neg) 05/07/22 05/08/22 05/08/22 Range/Units 23:11 01:09 01:09 WBC (4.8-10.8) K/ul RBC (3.93-5.22) M/uL Hgb (12.0-16.0) g/dl Hct (34.1-44.9) % MCV (80.0-100.0) fL MCH (25.0-34.0) pg MCHC (32.0-36.0) g/dL RDW Std Deviation (36.4-46.3) fL RDW Coeff of Jose (11.5-14.5) % Plt Count (130-400) K/uL MPV (9.4-12.3) fL Immature Gran % (Auto) % Neut % (Auto) % Lymph % (Auto) % [place] % (Auto) % Eos % (Auto) % Baso % (Auto) % Neut # (Auto) (1.4-6.5) K/uL Lymph # (Auto) (1.2-3.4) K/uL [place] # (Auto) (0.24-0.82) K/uL Eos # (Auto) (0-0.50) K/uL Baso # (Auto) (0-0.2) K/uL Immature Gran # (Auto) (0.00-0.02) K/uL ESR (0-20) mm/hr PT (9.0-12.0) Seconds INR (0.9-1.1) APTT (21.0-31.0) Seconds PTT Ratio Sodium (136-145) mmol/L Potassium (3.5-5.1) mmol/L Chloride (98-107) mmol/L Carbon Dioxide (21-32) mmol/L Anion Gap (3-11) BUN (6-23) mg/dl Creatinine (0.6-1.2) mg/dl Est Cr Clr Drug Dosing ml/min Est GFR ( Amer) ml/min Est GFR (Non-Af Amer) ml/min BUN/Creatinine Ratio (10-20) Glucose (70-99(Fasting)) mg/dl Lactate (0.4-2.0) mmol/L Calcium (8.5-10.1) mg/dl Magnesium (1.7-2.4) mg/dl Total Bilirubin (0.2-1.0) mg/dl AST (13-39) U/L ALT (7-52) U/L Alkaline Phosphatase (34-104) U/L Troponin I High Sens (0-14) pg/ml C-Reactive Protein (0-0.5) mg/dl Total Protein (6.0-8.3) gm/dl Albumin (3.4-5.0) gm/dl Globulin (2.5-4.0) gm/dl Albumin/Globulin Ratio (0.9-2) HCG, Qual (Negative) HCG, Quant 12048 mIU/ml Urine Color Yellow Urine Appearance Clear (Clear) Urine pH 6.0 (4.5-7.5) Ur Specific [place] 1.022 (1.000-1.030) Urine Protein Negative (Negative) Urine Glucose (UA) Negative (Negative) Urine Ketones Negative (Negative) Urine Blood Negative (Negative) Urine Nitrite Negative (Negative) Urine Bilirubin Negative (Negative) Urine Urobilinogen Negative (Negative) Ur Leukocyte Esterase Negative (Negative) Urine Opiates Screen Neg (Neg) Ur Methadone, Qual Neg (Neg) Urine Barbiturates Neg (Neg) Ur Phencyclidine (PCP) Neg (Neg) U Amphetamin/Meth Scrn Pos H (Neg) MDMA (Ecstasy) Screen Neg (Neg) U Benzodiazepines Scrn Neg (Neg) Ur Cocaine Metabolite Neg (Neg) U Marijuana (THC) Screen Pos H (Neg) 05/08/22 Range/Units 01:54 WBC (4.8-10.8) K/ul RBC (3.93-5.22) M/uL Hgb (12.0-16.0) g/dl Hct (34.1-44.9) % MCV (80.0-100.0) fL MCH (25.0-34.0) pg MCHC (32.0-36.0) g/dL RDW Std Deviation (36.4-46.3) fL RDW Coeff of Jose (11.5-14.5) % Plt Count (130-400) K/uL MPV (9.4-12.3) fL Immature Gran % (Auto) % Neut % (Auto) % Lymph % (Auto) % [place] % (Auto) % Eos % (Auto) % Baso % (Auto) % Neut # (Auto) (1.4-6.5) K/uL Lymph # (Auto) (1.2-3.4) K/uL [place] # (Auto) (0.24-0.82) K/uL Eos # (Auto) (0-0.50) K/uL Baso # (Auto) (0-0.2) K/uL Immature Gran # (Auto) (0.00-0.02) K/uL ESR (0-20) mm/hr PT (9.0-12.0) Seconds INR (0.9-1.1) APTT (21.0-31.0) Seconds PTT Ratio Sodium (136-145) mmol/L Potassium (3.5-5.1) mmol/L Chloride (98-107) mmol/L Carbon Dioxide (21-32) mmol/L Anion Gap (3-11) BUN (6-23) mg/dl Creatinine (0.6-1.2) mg/dl Est Cr Clr Drug Dosing ml/min Est GFR ( Amer) ml/min Est GFR (Non-Af Amer) ml/min BUN/Creatinine Ratio (10-20) Glucose (70-99(Fasting)) mg/dl Lactate 1.7 (0.4-2.0) mmol/L Calcium (8.5-10.1) mg/dl Magnesium (1.7-2.4) mg/dl Total Bilirubin (0.2-1.0) mg/dl AST (13-39) U/L ALT (7-52) U/L Alkaline Phosphatase (34-104) U/L Troponin I High Sens (0-14) pg/ml C-Reactive Protein (0-0.5) mg/dl Total Protein (6.0-8.3) gm/dl Albumin (3.4-5.0) gm/dl Globulin (2.5-4.0) gm/dl Albumin/Globulin Ratio (0.9-2) HCG, Qual (Negative) HCG, Quant mIU/ml Urine Color Urine Appearance (Clear) Urine pH (4.5-7.5) Ur Specific [place] (1.000-1.030) Urine Protein (Negative) Urine Glucose (UA) (Negative) Urine Ketones (Negative) Urine Blood (Negative) Urine Nitrite (Negative) Urine Bilirubin (Negative) Urine Urobilinogen (Negative) Ur Leukocyte Esterase (Negative) Urine Opiates Screen (Neg) Ur Methadone, Qual (Neg) Urine Barbiturates (Neg) Ur Phencyclidine (PCP) (Neg) U Amphetamin/Meth Scrn (Neg) MDMA (Ecstasy) Screen (Neg) U Benzodiazepines Scrn (Neg) Ur Cocaine Metabolite (Neg) U Marijuana (THC) Screen (Neg) Imaging Data Attestation: I personally reviewed and interpreted this imaging study as foll ows: MDM Narrative Prior records/ancillary studies reviewed and summarized above. Nursing notes reviewed. Additional history obtained from nursing. The patient's history was concerning for right arm pain and swelling with subjective fever and chills intermittent chest pain and dyspnea in an IV drug abuser. Differential diagnosis: Etiologies such as endocarditis, cellulitis, abscess, metabolic, infection, hypo/hyperglycemia, electrolyte abnormalities, cardiac sources, intracerebral event, toxicologic, neurologic, as well as others were entertained. Physical examination: As above. ER treatment provided: IV Lock An order was placed for continuous cardiac monitoring. The monitor shows a rate of 60-1 50 with a sinus rhythm. IV fluids, vanco On reassessment the patient felt better. Diagnostics interpretation by me: ECG: Ordered for chest pain EKG: Normal sinus, WPW, no acute ST-T wave changes, EKG compared to prior EKG with no acute changes. Impression normal sinus WPW interpreted by myself The labs revealed elevated inflammatory markers, positive test and quantitative level was ordered. Patient was unaware she was . Imaging studies: Preliminary Findings Only See Final Report For Complete Findings CTA CHEST: No pulmonary embolus. No aortic aneurysm or dissection. The lungs are clear. Heart size is normal. No pathologically enlarged lymph nodes. No fracture. Radiologist: Isela Bran MD US VENOUS RIGHT UPPER EXTREMITY: No deep vein thrombosis of the right upper extremity. There is occlusive thrombophlebitis of the cephalic vein at the antecubital fossa. There is surrounding nonspecific subcutaneous edema. Radiologist: Isela Bran MD Chest x-ray with no acute consolidation, pneumothorax or free air per my interpretation Elbow x-ray with no foreign body fracture or effusion per my interpretation Exam and history seem consistent with occlusive thrombophlebitis of the cephalic vein with infection who is . By the evaluation outlined above emergent etiologies such as electrolyte abnormalities, cardiac sources, intracerebral event, neurologic, abnormalities blood glucose, metabolic, as well as others were deemed relatively unlikely. The pt informed about the findings as listed above. All questions were answered and pleased with the treatment. The chart was completed utilizing [employer] Speech voice recognition software. Grammatical errors, random word insertions, pronoun errors, and incomplete sentences are an occassional consequence of this system due to software limitations, ambient noise, and hardware issues. Any formal questions or taylor rns about the content, text, or information contained within the body of this dictation should be directly addressed to the physician assistant golf professional for clarification. Impression & Plan Cellulitis of arm, right, Superficial thrombophlebitis of right upper extremity, Drug abuse, IV, Discharge Plan Visit Data Chief Complaint: Arm Pain Stated Complaint: POSSIBLE ABCESS ON R ARM ED Provider: Wilma Ramos ED Midlevel Provider: Kelley Castano Discharge Problem: Cellulitis of arm, right, Superficial thrombophlebitis of right upper extremity, Drug abuse, IV, Patient Disposition: Admitted As Inpatient Condition: Good Forms Stand Alone Forms: [place] Prescriptions Prescriptions: No Action No Known Home Medications Referrals Referrals: PCP,NO [Primary Care Provider] -
[2022-05-07] MEDS ORDERED: SODIUM CHLORIDE 0.9% 1000ML 1,000 ML IV SCH (22:45)
[2022-05-07] MEDS ORDERED: VANCOMYCIN HCL 1,250 MG in SODIUM CHLORIDE 0.9% 500 ML IV ONE (22:48)
[2022-05-07] MEDS ORDERED: VANCOMYCIN CONSULT ACTIVE PRN (22:48)
[2022-05-07 23:41] LABS: Basophils # (auto) 0.03 K/uL (0-0.2); Basophils % (auto) 0.4 %; Eosinophils # (auto) 0.09 K/uL (0-0.50); Eosinophils % (auto) 1.2 %; Hematocrit (blood only) 39.7 % (34.1-44.9); Hemoglobin 13.2 g/dl (12.0-16.0); Immature Granulocytes # (auto) 0.02 K/uL (0.00-0.02); Immature Granulocytes % (auto) 0.3 %; Lymphocytes # (auto) 1.99 K/uL (1.2-3.4); Lymphocytes % (auto) 26.5 %; Mean Corpuscular Hemoglobin 30.5 pg (25.0-34.0); Mean Corpuscular Hgb Conc 33.2 g/dL (32.0-36.0); Mean Corpuscular Volume 91.7 fL (80.0-100.0); Mean Platelet Volume 9.5 fL (9.4-12.3); Monocytes # (auto) 0.56 K/uL (0.24-0.82); Monocytes % (auto) 7.5 %; Neutrophils # (auto) 4.81 K/uL (1.4-6.5); Neutrophils % (auto) 64.1 %; Platelet Count 248 K/uL (130-400); RDW Coefficient of Variation 12.7 % (11.5-14.5); RDW Standard Deviation 42.9 fL (36.4-46.3); Red Blood Count 4.33 M/uL (3.93-5.22)
[2022-05-08] LABS: Alanine Aminotransferase 15 U/L (7-52); Albumin Globulin Ratio 1.3 (0.9-2); Albumin Level 3.7 gm/dl (3.4-5.0); Alkaline Phosphatase 75 U/L (34-104); Anion Gap 10 (3-11); Aspartate Aminotransferase 15 U/L (13-39); BUN Creatinine Ratio 15.4 (10-20); Bilirubin,Total 0.2 mg/dl (0.2-1.0); Blood Urea Nitrogen 8 mg/dl (6-23); C Reactive Protein 3.34 mg/dl (0-0.5); Calcium 8.8 mg/dl (8.5-10.1); Carbon Dioxide 21 mmol/L (21-32); Chloride 105 mmol/L (98-107); Creatinine Clr Calc Pharmacy 137.6 ml/min; Est GFR (African American) > 150.0 ml/min; Est GFR (Non-African American) 132.8 ml/min; Globulin 2.9 gm/dl (2.5-4.0); Glucose 106 mg/dl (70-99(Fasting)); Potassium 3.7 mmol/L (3.5-5.1); Sodium 136 mmol/L (136-145); Total Protein 6.6 gm/dl (6.0-8.3)
[2022-05-08 00:02] LABS: INR 0.9 (0.9-1.1); Partial Thromboplastin Time 27.9 Seconds (21.0-31.0); Prothrombin Time 9.4 Seconds (9.0-12.0)
[2022-05-08 00:04] LABS: Pregnancy Test, Serum Positive (Negative)
[2022-05-08 00:08] LABS: Troponin I High Sensitivity 5.2 pg/ml (0-14)
[2022-05-08] MEDS ORDERED: OPTIRAY 320 125ml IV ONE (01:16)
[2022-05-08 01:17] LABS: Appearance Urine Clear (Clear); Bilirubin Urine Negative (Negative); Blood Urine Negative (Negative); Color Urine Yellow; Glucose Urine UA Negative (Negative); Ketones Urine Negative (Negative); Leukocyte Esterase Urine Negative (Negative); Nitrite Urine Negative (Negative); Protein Urine Negative (Negative); Specific Gravity Urine 1.022 (1.000-1.030); Urobilinogen Urine Negative (Negative)
[2022-05-08 02:08] LABS: Amphetamines+Metham, Urine Pos (Neg); Barbiturates, Urine Neg (Neg); Benzodiazepine, Urine Neg (Neg); Cocaine, Urine Neg (Neg); MDMA (Ecstacy), Urine Neg (Neg); Methadone, Urine Neg (Neg); Opiate, Urine Neg (Neg); Phencyclidine, Urine Neg (Neg)
--- NOTE | 2022-05-08 04:44 | History & Physical Report ---
Date of Service May 08, 2022 Assessment & Plan (1) Localized swelling of right upper extremity: Plan: In the setting of IVDU multifactorial : RUE cellulitis, no sepsis for now Cephalic vein thrombophlebitis hx WPW mood disorder/ PTSD, at baseline as per patient hypothyroidism, currently not on maintenance medications ongoing tobacco abuse GMF Clindamycin given need for MRSA coverage in consideration of IVDU Hematology consultation Re: Cephalic vein thrombophlebitis (Case discussed with Dr. Ace who recommends prophylactic Lovenox 40 mg subcutaneous daily for 45 days given patient's special circumstances.) Case management consult to facilitate arrangements for home Rx. Difficulties might be encountered as patient currently without PCP. OB consult Re: checkup (Case discussed with Dr. Paez who is likewise agreeable with clindamycin and Lovenox recommendations.) Check TSH Patient strongly counseled to stop smoking given current . DVT prophylaxis. Lovenox subcu Full code Text document was generated using [employer] voice recognition software. It may contain grammatical or spelling errors. Kindly contact undersigned for clarification of any documentation item in question. History of Present Illness Chief Complaint: Right upper arm swelling Primary Care Provider: NO PCP History obtained from patient, family, and records. Medical history significant for WPW, mood disorder, PTSD, hypothyroidism, substance abuse, ongoing tobacco abuse. Last confinement September 2020 under OB service for status post vaginal delivery. Few days history of right upper extremity swelling associated with fever, chills, chest pain, SOB. Patient admits to IV drug use. IV vancomycin administered at the ER. test noted to be positive. Patient unaware of current . Last period was a month ago. 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 Allergies Allergy/AdvReac Type Severity Reaction Status Date / Time No Known Allergies Allergy Verified 05/08/22 01:11 Home Medications Medication Instructions Recorded Confirmed Type No Known Home Medications 05/08/22 05/08/22 History Past Med/Surg History Medical History (Updated 05/08/22 @ 08:33 by Satya Elam MD) Bipolar disorder Cannabis use disorder, moderate, dependence uses daily; has medical card Generalized anxiety disorder with panic attacks History of chicken pox Late care affecting Methamphetamine use last used 3 months ago Mood disorder Post traumatic stress disorder (PTSD) in active therapy due to childhood trauma state Strep pharyngitis Subchorionic hemorrhage in first trimester Suicidal ideation Thyroid dysfunction patient states due to [place] use in past. States levels have been "fine" Wmzhe-Qnmyeyswc-Lbeag (WPW) syndrome diagnosed at age 19; betablocker recommended but patient has not taken for 6 years because she does not like "how it makes me feel" needs cardiac cath but has not scheduled Surgical History History of adenoidectomy Family History Grandfather (Maternal) Hypertension Father Pulmonary hypertension Other Arthritis Denies family history of Ovarian cancer Breast cancer Colorectal cancer Social History Smoking Status: Current every day smoker Tobacco Type: Cigarettes Hx Alcohol Use: No Hx Substance Use: Yes Last Used Substance: Just Prior to Arrival Last Used Substance Other:: marijuana daily for PTSD; meth last used 3 months ago- rec use Preferred Language: Montenegrin Communication Ability: Effective Visual Impairment: No Limitations Hearing Ability: Normal Medical Service Technician Required: No Beliefs That Will Affect Care: None marital status: Single marital status details: Yrn Benavides (37) Emergency contact-Ana Collierley [phone] Current Living Situation: Family and Significant Other Current Living Situation Comment: lives with fob, friend, children do not live with patient current occupational status: unemployed 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 Feels Safe at Home: Yes Assistive Devices: None Review of Systems Review of Systems: As per HPI, all other systems reviewed and negative Physical Exam Physical Exam: GENERAL: Episodic sleepiness, restless, looks older than stated age, no respiratory distress SKIN: Normal color, warm HEENT: [place] palpebral conjunctivae, no ptosis, dry buccal mucosa, partially edentulous NECK : Supple, no tenderness CHEST : CTA, no tenderness HEART : RRR, no obvious murmurs ABDOMEN: Some distention, nontender EXTREMITIES : Tender right upper extremity swelling, no LE swelling/tenderness, no other conspicuous deformities noted NEUROLOGIC : Episodic lethargy, no facial asymmetry, gait and stance not assessed Results & Data Results & Data ([place]) Vital Signs (Past 12 Hours) Vital Signs Temp Pulse Pulse Resp BP BP Pulse Ox 05/08/22 03:00 16 99 05/08/22 03:00 90 16 116/58 L 99 05/08/22 04:00 98 05/08/22 03:30 16 98 05/08/22 03:00 99 05/08/22 02:30 16 100 05/08/22 01:30 19 100 05/08/22 01:11 85 100 05/08/22 01:10 84 16 136/77 100 05/08/22 01:10 100 05/07/22 19:33 36.8 C 108 H 17 118/84 100 O2 Del Method 05/08/22 03:00 05/08/22 03:00 05/08/22 04:00 Room Air 05/08/22 03:30 05/08/22 03:00 Room Air 05/08/22 02:30 05/08/22 01:30 05/08/22 01:11 05/08/22 01:10 Room Air 05/08/22 01:10 Room Air 05/07/22 19:33 Room Air Laboratory Results Laboratory Results WBC 7.50 K/ul (4.8-10.8) 05/07/22 23:11 RBC 4.33 M/uL (3.93-5.22) 05/07/22 23:11 Hgb 13.2 g/dl (12.0-16.0) 05/07/22 23:11 Hct 39.7 % (34.1-44.9) 05/07/22 23:11 MCV 91.7 fL (80.0-100.0) 05/07/22 23:11 MCH 30.5 pg (25.0-34.0) 05/07/22 23:11 MCHC 33.2 g/dL (32.0-36.0) 05/07/22 23:11 RDW Std Deviation 42.9 fL (36.4-46.3) 05/07/22 23:11 RDW Coeff of Jose 12.7 % (11.5-14.5) 05/07/22 23:11 Plt Count 248 K/uL (130-400) 05/07/22 23:11 MPV 9.5 fL (9.4-12.3) 05/07/22 23:11 Immature Gran % (Auto) 0.3 % 05/07/22 23:11 Neut % (Auto) 64.1 % 05/07/22 23:11 Lymph % (Auto) 26.5 % 05/07/22 23:11 [place] % (Auto) 7.5 % 05/07/22 23:11 Eos % (Auto) 1.2 % 05/07/22 23:11 Baso % (Auto) 0.4 % 05/07/22 23:11 Neut # (Auto) 4.81 K/uL (1.4-6.5) 05/07/22 23:11 Lymph # (Auto) 1.99 K/uL (1.2-3.4) 05/07/22 23:11 [place] # (Auto) 0.56 K/uL (0.24-0.82) 05/07/22 23:11 Eos # (Auto) 0.09 K/uL (0-0.50) 05/07/22 23:11 Baso # (Auto) 0.03 K/uL (0-0.2) 05/07/22 23:11 Immature Gran # (Auto) 0.02 K/uL (0.00-0.02) 05/07/22 23:11 ESR 29 mm/hr (0-20) H 05/07/22 23:11 PT 9.4 Seconds (9.0-12.0) 05/07/22 23:11 INR 0.9 (0.9-1.1) 05/07/22 23:11 APTT 27.9 Seconds (21.0-31.0) 05/07/22 23:11 PTT Ratio 1.0 05/07/22 23:11 Sodium 136 mmol/L (136-145) 05/07/22 23:11 Potassium 3.7 mmol/L (3.5-5.1) 05/07/22 23:11 Chloride 105 mmol/L (98-107) 05/07/22 23:11 Carbon Dioxide 21 mmol/L (21-32) 05/07/22 23:11 Anion Gap 10 (3-11) 05/07/22 23:11 BUN 8 mg/dl (6-23) 05/07/22 23:11 Creatinine 0.52 mg/dl (0.6-1.2) L 05/07/22 23:11 Est Cr Clr Drug Dosing 137.6 ml/min 05/07/22 23:11 Est GFR ( Amer) > 150.0 ml/min 05/07/22 23:11 Est GFR (Non-Af Amer) 132.8 ml/min 05/07/22 23:11 BUN/Creatinine Ratio 15.4 (10-20) 05/07/22 23:11 Glucose 106 mg/dl (70-99(Fasting)) H 05/07/22 23:11 Lactate 1.7 mmol/L (0.4-2.0) 05/08/22 01:54 Calcium 8.8 mg/dl (8.5-10.1) 05/07/22 23:11 Magnesium 2.0 mg/dl (1.7-2.4) 05/07/22 23:11 Total Bilirubin 0.2 mg/dl (0.2-1.0) 05/07/22 23:11 AST 15 U/L (13-39) 05/07/22 23:11 ALT 15 U/L (7-52) 05/07/22 23:11 Alkaline Phosphatase 75 U/L (34-104) 05/07/22 23:11 Troponin I High Sens 5.2 pg/ml (0-14) 05/07/22 23:11 C-Reactive Protein 3.34 mg/dl (0-0.5) H 05/07/22 23:11 Total Protein 6.6 gm/dl (6.0-8.3) 05/07/22 23:11 Albumin 3.7 gm/dl (3.4-5.0) 05/07/22 23:11 Globulin 2.9 gm/dl (2.5-4.0) 05/07/22 23:11 Albumin/Globulin Ratio 1.3 (0.9-2) 05/07/22 23:11 HCG, Qual Positive (Negative) 05/07/22 23:11 HCG, Quant 15176 mIU/ml 05/07/22 23:11 Urine Color Yellow 05/08/22 01:09 Urine Appearance Clear (Clear) 05/08/22 01:09 Urine pH 6.0 (4.5-7.5) 05/08/22 01:09 Ur Specific [place] 1.022 (1.000-1.030) 05/08/22 01:09 Urine Protein Negative (Negative) 05/08/22 01:09 Urine Glucose (UA) Negative (Negative) 05/08/22 01:09 Urine Ketones Negative (Negative) 05/08/22 01:09 Urine Blood Negative (Negative) 05/08/22 01:09 Urine Nitrite Negative (Negative) 05/08/22 01:09 Urine Bilirubin Negative (Negative) 05/08/22 01:09 Urine Urobilinogen Negative (Negative) 05/08/22 01:09 Ur Leukocyte Esterase Negative (Negative) 05/08/22 01:09 Urine Opiates Screen Neg (Neg) 05/08/22 01:09 Ur Methadone, Qual Neg (Neg) 05/08/22 01:09 Urine Barbiturates Neg (Neg) 05/08/22 01:09 Ur Phencyclidine (PCP) Neg (Neg) 05/08/22 01:09 U Amphetamin/Meth Scrn Pos (Neg) H 05/08/22 01:09 MDMA (Ecstasy) Screen Neg (Neg) 05/08/22 01:09 U Benzodiazepines Scrn Neg (Neg) 05/08/22 01:09 Ur Cocaine Metabolite Neg (Neg) 05/08/22 01:09 U Marijuana (THC) Screen Pos (Neg) H 05/08/22 01:[address] chest initial read: No pulmonaryembolus. No aortic aneurysmor dissection. The lungs are clear. Heart size is normal. No pathologicallyenlarged lymph nodes. No fracture. RUE venous Dopplers initial read: No deep vein thrombosis of the right upper extremity. There is occlusive thrombophlebitis of the cephalic vein at the antecubital fossa. There is surrounding nonspecific subcutaneous edema. EKG as per my interpretation :Rate 80, NSR, LAD, LAFB, delta wave, no ischemia
[2022-05-08] MEDS ORDERED: CLINDAMYCIN/D5W 600 MG/50 ML BAG IV ONE (05:16)
[2022-05-08] MEDS ORDERED: ENOXAPARIN INJ 40 MG/0.4 ML SYR SQ ONE (05:16)
--- NOTE | 2022-05-08 05:51 | OB/GYN Consultation ---
Date of Consultation May 08, 2022 Assessment & Plan (1) : [place] [address]. Fundal height not measurable - suspect 1st trimester . Will obtain ultrasound to confirm viability and dates. Ordered initial labs - has already completed CBC, CMP through ER. Will also obtain blood type/antibody screen, Hep B, Hep C, HIV, RPR, GC/C swab collected. I have sent a message to [facility] office - she plans to followup with us again this - to get in touch with patient for planning for care when dates are confirmed. Discussed case with Dr Elam - I agree with plans to treat thrombophlebitis/cellulitis with lovenox and antibiotics. Please contact OB on- call if there are any questions during her hospital stay. (2) Superficial thrombophlebitis of right upper extremity: (3) Cellulitis of arm, right: History of Present Illness Reason for Consultation: incidental finding of Requesting Physician: Dr Elam Attending Physician: Dr Elam History of Present Illness 27yo @ unknown gestation presented to emergency department tonight with concern regard swelling and possible abscess on right arm and chest discomfort. She has a history of drug abuse and had stated to the ER staff that the needle she had used was bent and dirty. She did not know she was , this was an incidental finding on ER workup. She believes her last period was about 1-2 months ago. No symptoms of breast tenderness or vaginal bleeding or pelvic pain, however she does note she has been bloated recently. She most recently delivered 10/18/[address] Campos, that was complicated by late care at 32w, smoking, substance use, hypothyroidism, Pofaq-Fipkacbdo-Ssixl syndrome. Of note, her G1 was complicated by preeclampsia. Today's drug screen results are positive for amphetamines/meth and THC. Patient states she is not taking any additional medications - she has been recommended to take a beta gilma for the WPW, however does not like how that makes her feel. Has taken lithium in the past. Allergies Allergy/AdvReac Type Severity Reaction Status Date / Time No Known Allergies Allergy Verified 05/08/22 01:11 Home Medications Medication Instructions Recorded Confirmed Type No Known Home Medications 05/08/22 05/08/22 History Patient History Medical History (Updated 05/08/22 @ 06:03 by Naa Paez, DO) Bipolar disorder Cannabis use disorder, moderate, dependence uses daily; has medical card Generalized anxiety disorder with panic attacks History of chicken pox Late care affecting Methamphetamine use last used 3 months ago Mood disorder Post traumatic stress disorder (PTSD) in active therapy due to childhood trauma state Strep pharyngitis Subchorionic hemorrhage in first trimester Suicidal ideation Thyroid dysfunction patient states due to [place] use in past. States levels have been "fine" Tkaow-Lrtluclap-Wymip (WPW) syndrome diagnosed at age 19; betablocker recommended but patient has not taken for 6 years because she does not like "how it makes me feel" needs cardiac cath but has not scheduled Surgical History History of adenoidectomy Family History Grandfather (Maternal) Hypertension Father Pulmonary hypertension Other Arthritis Denies family history of Ovarian cancer Breast cancer Colorectal cancer Social History Smoking Status: Current every day smoker Tobacco Type: Cigarettes Hx Alcohol Use: No Hx Substance Use: Yes Last Used Substance Other:: marijuana daily for PTSD; meth last used 3 months ago- rec use Preferred Language: Romansh Communication Ability: Effective Visual Impairment: No Limitations Hearing Ability: Normal Us Administrative Law Judge Required: No Beliefs That Will Affect Care: None marital status: Single marital status details: Yrn Kennedy (35) Emergency contact-Ana Collierley [phone] Current Living Situation: Family and Significant Other Current Living Situation Comment: lives with fob, friend, children do not live with patient current occupational status: unemployed 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 Appears tired and somewhat shaky. Abdomen: soft, non-tender, no abdominal mass palpated. Unable to palpate uterine fundus - not measurable. Genitourinary: Normal external genitalia. The urethral meatus was normal. The urethra was normal. No vaginal bleeding. GC/C swab collected. Neurological: The patient was oriented to person, place, and time. Mood and affect were appropriate. Extremities: Right arm is swollen and bruised. Results & Data ([facility]) Vital Signs (Past 12 Hours) Vital Signs Temp Pulse Pulse Resp BP BP Pulse Ox 05/08/22 03:00 16 99 05/08/22 03:00 90 16 116/58 L 99 05/08/22 04:00 98 05/08/22 03:30 16 98 05/08/22 03:00 99 05/08/22 02:30 16 100 05/08/22 01:30 19 100 05/08/22 01:11 85 100 05/08/22 01:10 84 16 136/77 100 05/08/22 01:10 100 05/07/22 19:33 36.8 C 108 H 17 118/84 100 O2 Del Method 05/08/22 03:00 05/08/22 03:00 05/08/22 04:00 Room Air 05/08/22 03:30 05/08/22 03:00 Room Air 05/08/22 02:30 05/08/22 01:30 05/08/22 01:11 05/08/22 01:10 Room Air 05/08/22 01:10 Room Air 05/07/22 19:33 Room Air PG Care Time/CCT Total # of Minutes Spent Total Time Spent with Patient: Total time spent is greater than 50% in coordination of care (as documented) at patient's floor/unit and/or counseling patient: Coding Level of Care Code 56774 Office/OBS Consult Lvl 3 Diagnoses Z34.90 Superficial thrombophlebitis of right upper extremity I80.8 Cellulitis of arm, right L03.113
--- NOTE | 2022-05-08 06:39 | XRay Report ---
XR elbow RT 2V HISTORY: 27 years-old Female ? needle, IVDU acute soft tissue swelling of the right elbow COMPARISON: None TECHNIQUE: 2 views of the right elbow FINDINGS: Mild soft tissue swelling of the elbow, upper arm and forearm. No acute fracture, dislocation, large joint effusion or opaque foreign body. IMPRESSION: 1. Soft tissue swelling without acute fracture. 2. No opaque foreign body identified. ACT 112: Negative or not required by law. The above report was generated using voice recognition software. It may contain grammatical, syntax o r spelling errors. Electronically signed by: Flip Montoya M.D. 05/08/2022 6:38 AM
--- NOTE | 2022-05-08 06:46 | XRay Report ---
XR chest 1V portable HISTORY: 27 years-old Female SEPSIS acute sepsis COMPARISON: CTA chest of same day TECHNIQUE: AP view of the chest FINDINGS: Cardiomediastinal and hilar silhouettes are within normal limits. No pneumothorax, pleural effusion, airspace consolidation or overt pulmonary edema. Bones appear grossly intact. IMPRESSION: No acute process. ACT 112: Negative or not required by law. The above report was generated using voice recognition software. It may contain grammatical, syntax o r spelling errors. Electronically signed by: Flip Montoya M.D. 05/08/2022 6:44 AM
--- NOTE | 2022-05-08 07:24 | Ultrasound Report ---
US OB limited HISTORY: 27 years-old Female eval COMPARISON: Pelvic ultrasound 05/14/2021 TECHNIQUE: Multiple real-time sonographic images of the deep pelvic structures were obtained transabd ominally and transvaginally assessing grayscale appearance, color and spectral flow FINDINGS: TRANSABDOMINAL: Anteflexed uterus measures 9.2 x 5.3 x 5.6 cm. Intrauterine gestational sac measures 1.2 cm correlati ng with estimated gestational age of 5 weeks and 2 days. 3 mm yolk sac. No pole identified. The ovaries are obscured by bowel gas. TRANSVAGINAL: Anteflexed uterus measures 9.6 x 5.7 x 6.0 cm. Intrauterine gestational sac measures 1.3 cm correlati ng with estimated gestational age of 5 weeks and 3 days. 0.22 cm yolk sac with 0.34 cm pole cor relating with estimated gestational age of 6 weeks and 0 days. Cardiac motion is noted however M-mode analysis was unable to detect a heart rate. The right ovary measures 3.3 x 2.3 x 3.0 cm containing a 2.2 x 1.7 x 1.9 cm corpus luteum. The left o vary measures 2.9 x 1.7 x 2.4 cm. Arterial inflow and venous outflow is documented bilaterally. Trace free pelvic fluid. IMPRESSION: 1. Single intrauterine gestation with estimated gestational age by crown-rump length of 6 weeks and 0 days. Cardiac motion is noted, however M-mode analysis was unable to quantify a heart rate likely se condary to early gestational status. 2. Right corpus luteum. ACT 112: Negative or not required by law. The above report was generated using voice recognition software. It may contain grammatical, syntax o r spelling errors. Electronically signed by: Flip Montoya M.D. 05/08/2022 7:21 AM
--- NOTE | 2022-05-08 07:34 | CT Scan Report ---
CT ANGIOGRAPHY OF THE CHEST, PULMONARY EMBOLUS PROTOCOL CLINICAL HISTORY: Shortness of breath. Chest pain. Evaluate for pulmonary embolus. COMPARISON STUDY: Chest radiograph May 08, 2022. TECHNIQUE: Following IV administration of 120 mL of Optiray, helical axial images of the chest were o btained utilizing the pulmonary embolus protocol. Maximal intensity projections and sagittal and cor onal reformats were viewed on an independent 3D workstation. IV contrast was administered without co mplication. Automated exposure control was utilized for the study. A dose lowering technique was ut ilized adhering to the principles of ALARA. CT DOSE: 226.13 mGy.cm FINDINGS: No pulmonary emboli are identified. There is no thoracic aortic dissection. Size of the he art is normal. There is no pericardial effusion. No enlarged thoracic lymph nodes are present. No pne umothorax or pleural effusion is present. There is no consolidation. Central airways are patent. No s uspicious pulmonary nodules. No acute fracture or suspicious lesion within the visualized bony thorax . IMPRESSION: 1. No pulmonary emboli identified. 2. No acute intrathoracic findings. ACT 112: Negative or not required by law. Electronically signed by: Luis Daly M.D. 05/08/2022 7:33 AM
--- NOTE | 2022-05-08 07:55 | Ultrasound Report ---
RIGHT UPPER EXTREMITY VENOUS DOPPLER ULTRASOUND CLINICAL HISTORY: Right upper extremity swelling. COMPARISON STUDY: No previous studies for comparison. TECHNIQUE: Sonography of the venous system of the right upper extremity was performed. FINDINGS: No deep venous thrombus is identified within the right upper extremity. Note is made of occ lusive thrombus within the cephalic vein just superior to the antecubital fossa. Adjacent soft tissue edema and a 2.1 cm hypoechoic focus are noted. IMPRESSION: 1. No deep venous thrombus within the right upper extremity. 2. Superficial thrombus within the right cephalic vein, just superior to the antecubital fossa. Adjac ent soft tissue edema and a 2.1 cm hypoechoic focus. This is nonspecific and could reflect phlegmon o r hematoma. Although less likely, abscess would be difficult to exclude and sonographic follow-up cou ld be obtained. ACT 112: Negative or not required by law. Electronically signed by: Luis Daly M.D. 05/08/2022 7:53 AM
[2022-05-08] MEDS ORDERED: LACTATED RINGER'S 1,000 ML IV ONE (08:26)
[2022-05-08] MEDS ORDERED: ONDANSETRON INJ 2 MG/ML 2 ML VIAL IV PRN (08:26)
[2022-05-08] MEDS ORDERED: ACETAMINOPHEN 325 MG TAB PO PRN (08:26)
[2022-05-08] MEDS: CLINDAMYCIN HCL 150 MG CAP PO SCH ×2 (13:08→17:28)
--- NOTE | 2022-05-08 17:21 | Discharge Summary ---
Date of Service May 08, 2022 Admission HPI Per Admitting Provider History obtained from patient, family, and records. Medical history significant for WPW, mood disorder, PTSD, hypothyroidism, substance abuse, ongoing tobacco abuse. Last confinement September 2020 under OB service for status post vaginal delivery. Few days history of right upper extremity swelling associated with fever, chills, chest pain, SOB. Patient admits to IV drug use. IV vancomycin administered at the ER. test noted to be positive. Patient unaware of current . Last period was a month ago. 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 Discharge Data Allergies Allergy/AdvReac Type Severity Reaction Status Date / Time No Known Allergies Allergy Verified 05/08/22 01:11 Consultations 05/08/22 04:05 ED Decision to Admit Stat 05/08/22 05:32 Consult Hematology Routine Consult Obstetrics Routine Ordered Studies 05/07/22 22:39 CT angio chest PE protocol Urgent US venous doppler UE RT Urgent 05/08/22 05:14 US OB limited Routine 05/08/22 05:15 US OB transvaginal Routine Hospital Course (1) Localized swelling of right upper extremity: In the setting of IVDU multifactorial : RUE cellulitis, no sepsis for now Cephalic vein thrombophlebitis hx WPW mood disorder/ PTSD, at baseline as per patient hypothyroidism, currently not on maintenance medications ongoing tobacco abuse GMF Clindamycin given need for MRSA coverage in consideration of IVDU Hematology consultation Re: Cephalic vein thrombophlebitis (Case discussed with Dr. Ace who recommends prophylactic Lovenox 40 mg subcutaneous daily for 45 days given patient's special circumstances.) Case management consult to facilitate arrangements for home Rx. Difficulties might be encountered as patient currently without PCP. OB consult Re: checkup (Case discussed with Dr. Paez who is likewise agreeable with clindamycin and Lovenox recommendations.) Check TSH Patient strongly counseled to stop smoking given current . DVT prophylaxis. Lovenox subcu Full code Text document was generated using [employer] voice recognition software. It may contain grammatical or spelling errors. Kindly contact undersigned for clarification of any documentation item in question. Discharge Plan Discharge Items Patient Disposition: Home - Self-Care Reason For Visit: RUE CELLULITIS Discharge Diagnosis: Right upper arm cellulitis with superficial blood clot Condition on Discharge: Good Activity: Resume your previous activity Non-emergency contact: Primary Care Provider Call non-emergency contact if: you have any medication questions, your symptoms worsen, your pain is not controlled, your pain is worsening, your pain is unusual for you, your pain is concerning for you and you have a fever Follow-up/Referrals: Julia Greenberg MD [Outside Practitioners] - (Date & Time 05/14/2022 11:20 AM Provider Julia Greenberg MD Department General Internal Medicine [address] , [facility] [id number] ) Diet: Regular Addtl Attending Provider Instructions: Please take all medications as instructed on discharge list below. You are being given a prescription for blood thinner called Lovenox that you will inject under the skin (not into a vein) once daily for 45 days. After this time, you will need to be re-evaluated by a doctor to make sure things have improved. Please avoid Motrin or other NSAIDs given your , and use only Tylenol for pain if needed. You are also being given an antibiotic for a few days in case of any infection. This cannot treat things like hepatitis or HIV which you can contract from using dirty needles. These tests were drawn and are pending at the time of discharge. These results should be reviewed at your followup appointment. You should be rescreened for these infections again annually, or if symptoms arise. Please follow-up with the primary care provider at the date and time listed above. This will be important to evaluate your arm and make sure you are doing well on the medications. Please stay sober and work with your registered nurse hh case manager to go into a drug rehabilitation program. It was a pleasure taking care of you! Please call if you have any questions or problems. You can reach a [facility] hospitalist on duty at [facility] 24 hours a day by calling [phone]. Take care of yourself. Tri Peres, DO [facility] Hospitalist Pending Studies at Discharge: Yes Stand-Alone Forms: [facility] Medications and DC Order Prescriptions: New enoxaparin [Lovenox] 40 mg/0.4 mL Syringe 40 mg subcut QAM Qty: 4 4RF Rx Instructions: Inject just under the skin once daily for 45 days clindamycin HCl 150 mg Capsule 300 mg PO QID Qty: 56 0RF Discharge Orders: Discharge Order (Routine); Ordered 05/08/22 Ordered By: Tri Peres Admission Data Admit Date/Time: 05/08/22 05:25 Attending Provider: Tri Peres Admit Provider: Satya Elam Primary Care Provider: PCP,NO Other Providers: Liz Ace ; Naa Paez ; Satya Elam
--- NOTE | 2022-05-08 18:22 | Communication Note ---
Date of Service: May 08, 2022 Late entry Patient seen in ER Pod C 4 in midday after u/s results seen. Reviewed u/s results and that can be normal for fhr to be below 100 at ega. Rec u/s on day of provider NOB visit in office, which we will plan for about 2wks. OB nurse already aware of this plan. Patient verbalized understanding.
--- NOTE | 2022-05-09 06:08 | Electrocardiogram Report ---
Test Reason : Blood Pressure : / mmHG Vent. Rate : 078 BPM Atrial Rate : 078 BPM P-R Int : 104 ms QRS Dur : 126 ms QT Int : 386 ms P-R-T Axes : 059 -46 088 degrees QTc Int : 440 ms Normal sinus rhythm Ventricular pre-excitation, consider WPW pattern Abnormal ECG When compared with ECG of 09-AUG-2017 14:46, No significant change was found Confirmed by Addy Jackson ([id number]) on 05/09/2022 6:07:48 AM Referred By: REFERRED SELF Confirmed By:Addy Jackson
[2022-05-09] MEDS ORDERED: ENOXAPARIN INJ 40 MG/0.4 ML SYR SQ SCH (09:00)
[2022-05-09 10:06] LABS: Chlamydia Trach RNA NOT DETECTED (NOT DETECTED); GC (Neis gonorrhoeae) RNA NOT DETECTED (NOT DETECTED)
[2022-05-09 10:26] LABS: HBSAG NON-REACTIVE (NON-REACTIVE)
[2022-05-11 03:31] LABS: Amphetamine Urine, Confirm 2450 ng/mL (<250); Marijuana Quant, GCMS Urine 198 ng/mL (<5); Methamphetamine, Ur Confirm 5120 ng/mL (<250)
== END 2022-05-08 18:11 | disposition home or self-care (01) | DRG 603 ==
LOC: ED 19:30 → EDINP 05-08 05:25 → 3W 05-08 16:02
DX: F17.210 Nicotine dependence, cigarettes, uncomplicated; L03.113 Cellulitis of right upper limb; F12.20 Cannabis dependence, uncomplicated; I45.6 Pre-excitation syndrome; F15.20 Other stimulant dependence, uncomplicated; I80.8 Phlebitis and thrombophlebitis of other sites; Z72.89 Other problems related to lifestyle